=== PATIENT | male | born 1935 | race Caucasian/White ===

== ENCOUNTER → 2016-11-28 | Outpatient (CLI) | payer MEDICARE, OTHER ==
[2016-11-28 19:01] LABS: BASOPHILS % (AUTO) 0.7 %; EOSINOPHILS # (AUTO) 0.2 10^3/uL (0.0-0.7); EOSINOPHILS % (AUTO) 3.1 %; HCT - HEMATOCRIT 44.5 % (42.0-52.0); HGB - HEMOGLOBIN 14.8 g/dL (14.0-18.0); LYMPHOCYTES # (AUTO) 1.2 10^3/uL (1.5-3.5); LYMPHOCYTES % (AUTO) 23.9 %; MEAN CORPUSCULAR HEMOGLOBIN 32.4 pg (27.0-31.0); MEAN CORPUSCULAR HGB CONC 33.3 g/dL (32.0-36.0); MEAN CORPUSCULAR VOLUME 97.6 fL (80.0-94.0); MEAN PLATELET VOLUME 9.4 fL (7.4-11.4); MONOCYTES # (AUTO) 0.6 10^3/uL (0.0-1.0); MONOCYTES % (AUTO) 12.5 %; NEUTROPHILS # (AUTO) 3.1 10^3/uL (1.5-6.6); NEUTROPHILS % (AUTO) 59.8 %; RED BLOOD COUNT 4.56 10^6/uL (4.70-6.10); RED CELL DISTRIBUTION WIDTH 15.2 % (12.0-15.0); UNCORRECTED WHITE BLOOD COUNT 5.1 x10^3/uL; WHITE BLOOD COUNT 5.1 x10^3/uL (4.8-10.8)
[2016-11-28 19:54] LABS: ALBUMIN/GLOBULIN RATIO 1.2 (1.0-2.2); CALCIUM 8.8 mg/dL (8.5-10.3); CREATININE 1.5 mg/dL (0.6-1.2); POTASSIUM 4.5 mmol/L (3.5-5.0); TOTAL PROTEIN 6.7 g/dL (6.7-8.2)
== END ==
LOC: LAB.WCP 08:00
PROVIDERS: ATTEND Family Medicine
DX: R06.09 Other forms of dyspnea (principal)
CPT/HCPCS: 36415; 80053; 83880; 85025

== ENCOUNTER 2017-08-28 11:40 | Outpatient (CLI) | payer MEDICARE, OTHER | END 2017-08-28 11:41 | disposition critical access hospital (66) | LOC: EMS 11:40 | PROVIDERS: ATTEND Surgery | DX: R53.1 Weakness (principal); R11.2 Nausea with vomiting, unspecified; R19.7 Diarrhea, unspecified; W18.39XA Other fall on same level, initial encounter; Y92.002 Bathroom of unspecified non-institutional (private) residence as the place of occurrence of the external cause | CPT/HCPCS: A0425; A0427 ==

== ENCOUNTER 2017-08-28 11:58 | Emergency (ER) | payer MEDICARE, OTHER ==
--- NOTE | 2017-08-28 13:28 | ED Physician Documentation ---
PD HPI NVD - Stated complaint Stated Complaint: N/V/D - Chief complaint Chief Complaint: Abd Pain - History obtained from History obtained from: Patient, EMS - History of Present Illness Timing - onset: Today (onset of diarrhea overnight and general weakness today. Unable to get out of bed. EMS found his BP to be low and improved with IV fluids enroute.) Timing - details: Abrupt onset, Still present Associated symptoms: Near syncope / syncope. No: Fever, Abdominal pain, Chest pain, Melena, Loss of appetite, Dysuria Contributing factors: Recent antibiotics. No: Sick contact, Bad food, Travel Similar symptoms before: Has not had sx before Recently seen: Clinic (Dx with shingles and started on meds 2 days ago, including IM antibiotic in office for concern of secondary infection of the shingles.) Review of Systems Constitutional: reports: Myalgias. denies: Fever, Chills Nose: denies: Rhinorrhea / runny nose, Congestion Throat: denies: Sore throat Cardiac: denies: Chest pain / pressure, Palpitations Respiratory: denies: Dyspnea, Cough GI: reports: Nausea, Diarrhea. denies: Abdominal Pain, Vomiting Skin: reports: Rash (for 3 days, Dx with shingles) Neurologic: reports: Generalized weakness. denies: Focal weakness, Numbness Immunocompromised: denies: Immunocompromised PD PAST MEDICAL HISTORY - Past Medical History Cardiovascular: Hypertension, High cholesterol, Coronary artery disease, Atrial fibrillation Respiratory: COPD, Pneumonia, Sleep apnea Neuro: CVA, Peripheral neuropathy : Renal insuffiency Musculoskeletal: Gout - Past Surgical History Past Surgical History: Yes General: Appendectomy, Bowel surgery Cardiovascular: Pacemaker - Present Medications Home Medications: Ambulatory Orders Medication Instructions Recorded Confirmed Albuterol [Ventolin Hfa] 2 puffs INH Q4H PRN #1 inhaler 03/22/14 Azithromycin [Zithromax] 250 mg PO DAILY #6 tablet 03/22/14 Dexamethasone [Decadron] 4 mg PO DAILY #5 tablet 03/22/14 Docusate Sodium 250Mg Capsule 250 mg PO BID 03/22/14 03/22/14 [Colace] Furosemide [Lasix] 20 mg PO DAILY 03/22/14 03/22/14 LORazepam INTENSOL [Ativan 0.25 mg Q2HR PRN 03/22/14 03/22/14 Intensol] Lidocaine Patch 5% [Lidoderm Patch] 1 patch DAILY 03/22/14 03/22/14 Lisinopril 10 mg DAILY 03/22/14 03/22/14 Magnesium Oxide [Mag Ox] 400 mg PO BID 03/22/14 03/22/14 Metoclopramide [Reglan] 10 mg PO Q6H PRN 03/22/14 03/22/14 Metoprolol Tartrate [Lopressor] 25 mg PO BID 03/22/14 03/22/14 Multivitamin [Multi-Day Vitamins] 1 cap DAILY 03/22/14 03/22/14 Omeprazole Magnesium [Prilosec Otc] 20 mg DAILY 03/22/14 03/22/14 Ondansetron Odt [Zofran] 4 mg TL Q6H PRN 03/22/14 03/22/14 Oxycodone HCl/Acetaminophen 1 cap Q4HR PRN 03/22/14 03/22/14 [Endocet 5-325 Tablet] Polyethylene Glycol 3350 [Miralax] 17 gm PO DAILY 03/22/14 03/22/14 Potassium Chloride [Klor-Con M20] 20 meq BID 03/22/14 03/22/14 Tamsulosin HCl [Flomax] 0.4 mg PO 03/22/14 03/22/14 Warfarin [Coumadin] 5 mg PO 1400 03/22/14 03/22/14 predniSONE [Deltasone] 20 mg ONCE 03/22/14 03/22/14 Dexamethasone [Decadron] 4 mg PO DAILY #5 tablet 08/28/17 Diphenoxylate/Atropine [Lomotil] 1 each PO QID PRN #15 tablet 08/28/17 - Allergies Allergies/Adverse Reactions: Allergies Allergy/AdvReac Type Severity Reaction Status Date / Time No Known Drug Allergies Allergy Verified 08/28/17 12:25 - Social History Does the pt smoke?: No Smoking Status: Former smoker Does the pt drink ETOH?: No Does the pt have substance abuse?: No - POLST Patient has POLST: No PD ED PE NORMAL - Vitals Vital signs reviewed: Yes - General General: Alert and oriented X 3, No acute distress, Well developed/nourished - HEENT HEENT: Pharynx benign - Neck Neck: Supple, no meningeal sign, No adenopathy - Cardiac Cardiac: RRR, No murmur - Respiratory Respiratory: Clear bilaterally - Abdomen Abdomen: Normal bowel sounds, Soft, Non tender, Non distended - Male Male : Deferred - Rectal Rectal: Deferred (he had stool in ED so tested it guiac negative. ) - Derm Derm: Normal color, Warm and dry, Other (right lower thoracid back wrapping around to inguinal area with shingles appearing rash, tender. No purulence. ) - Extremities Extremities: No deformity, No tenderness to palpate, Normal ROM s pain, No edema , No calf tenderness / cord - Neuro Neuro: Alert and oriented X 3, No motor deficit, Normal speech Eye Opening: Spontaneous Motor: Obeys Commands Verbal: Oriented GCS Score: 15 - Psych Psych: Normal mood Results - Vitals Vitals: Vital Signs - 24 hr 08/28/17 08/28/17 08/28/17 12:00 13:18 14:05 Temperature 36.5 C Heart Rate 69 62 60 Respiratory 18 16 16 Rate Blood Pressure 102/59 L 95/55 L 119/70 O2 Saturation 96 96 98 Oxygen O2 Source Room air - Labs Labs: Laboratory Tests 08/28/17 08/28/17 08/28/17 14:07 14:07 14:07 WBC 4.8 RBC 4.47 L Hgb 14.5 Hct 43.0 MCV 96.2 H MCH 32.4 H MCHC 33.6 RDW 15.8 H Plt Count 133 MPV 8.6 Neut # Not Reportable Lymph # Not Reportable [place] # Not Reportable Eos # Not Reportable Baso # Not Reportable Absolute Nucleated RBC Not Reportable Total Counted 100 Band Neuts % (Manual) 2 Abnorm Lymph % (Manual) 0 Nucleated RBC % Not Reportable Neutrophils # (Manual) 2.5 Lymphocytes # (Manual) 1.2 L Monocytes # (Manual) 1.1 H Eosinophils # (Manual) 0.0 Basophils # (Manual) 0.0 Differential Comment MANUAL DIFFERENTIAL Manual Slide Review Indicated Platelet Estimate NORMAL (130-450,000) Platelet Morphology NORMAL APPEARANCE RBC Morph Micro Appear NORMAL APPEARANCE PT INR Sodium 135 Potassium 4.5 Chloride 103 Carbon Dioxide 23 Anion Gap 9.0 BUN 35 H Creatinine 1.7 H Estimated GFR (MDRD) 39 L Glucose 91 Calcium 8.3 L Magnesium 2.3 Total Bilirubin 1.0 AST 38 ALT 26 Alkaline Phosphatase 90 B-Natriuretic Peptide 93 Total Protein 6.5 L Albumin 3.4 Globulin 3.1 Albumin/Globulin Ratio 1.1 Lipase 20 L 08/28/17 14:07 WBC RBC Hgb Hct MCV MCH MCHC RDW Plt Count MPV Neut # Lymph # [place] # Eos # Baso # Absolute Nucleated RBC Total Counted Band Neuts % (Manual) Abnorm Lymph % (Manual) Nucleated RBC % Neutrophils # (Manual) Lymphocytes # (Manual) Monocytes # (Manual) Eosinophils # (Manual) Basophils # (Manual) Differential Comment Manual Slide Review Platelet Estimate Platelet Morphology RBC Morph Micro Appear PT 23.4 H INR 2.1 H Sodium Potassium Chloride Carbon Dioxide Anion Gap BUN Creatinine Estimated GFR (MDRD) Glucose Calcium Magnesium Total Bilirubin AST ALT Alkaline Phosphatase B-Natriuretic Peptide Total Protein Albumin Globulin Albumin/Globulin Ratio Lipase PD MEDICAL DECISION MAKING - ED course Complexity details: reviewed results, re-evaluated patient (feeling better with IV fluids. ), considered differential (had diarrhea overnight with weakness and low BP today. He had gotten IM doses abx in office for his shingles and so presume it is from that. Could be side effect of the acyclovir, so will need to consider taht if diarrhea persists. ), d/w patient Departure - Departure Disposition: 01 Home, Self Care Clinical Impression: Transient hypotension, Antibiotic-associated diarrhea, General weakness Condition: Stable Record reviewed to determine appropriate education?: Yes Follow-Up: Preston Spencer MD [Primary Care Provider] - Prescriptions: Dexamethasone [Decadron] 4 mg PO DAILY #5 tablet Diphenoxylate/Atropine [Lomotil] 1 each PO QID PRN #15 tablet PRN Reason: Diarrhea Comments: Drink lots of fluids. I presume the diarrhea you had was from the antibiotic that given and should taper down. Use Lomotil if needed for diarrhea. See how you feel generally. If you continue with some lightheadedness or diarrhea beyond a day or 2, then it might be from the antiviral medication instead, Erlinda acyclovir, and would want to discontinue that. Medication: I would continue the valacyclovir and the gabapentin prescribed by her provider. Add Decadron daily for 5 days. Add Lomotil if needed. See how you are feeling over the next few days. Discharge Date/Time: 08/28/17 17:15
[2017-08-28] MEDS ORDERED: SODIUM CHLORIDE 0.9% 1,000 ML IV ONE (13:48)
[2017-08-28 14:20] LABS: BASOPHILS % (AUTO) 0.7 %; EOSINOPHILS % (AUTO) 0.1 %; HGB - HEMOGLOBIN 14.5 g/dL (14.0-18.0); LYMPHOCYTES % (AUTO) 27.4 %; MEAN CORPUSCULAR HEMOGLOBIN 32.4 pg (27.0-31.0); MEAN CORPUSCULAR HGB CONC 33.6 g/dL (32.0-36.0); MEAN CORPUSCULAR VOLUME 96.2 fL (80.0-94.0); MEAN PLATELET VOLUME 8.6 fL (7.4-11.4); MONOCYTES % (AUTO) 22.1 %; NEUTROPHILS % (AUTO) 49.7 %; PLT - PLATELET COUNT 133 10^3/uL (130-450); RED BLOOD COUNT 4.47 10^6/uL (4.70-6.10); RED CELL DISTRIBUTION WIDTH 15.8 % (12.0-15.0); WHITE BLOOD COUNT 4.8 x10^3/uL (4.8-10.8)
[2017-08-28 14:22] VITALS: BP 119/70
[2017-08-28 14:35] LABS: ALBUMIN 3.4 g/dL (3.2-5.5); ALBUMIN/GLOBULIN RATIO 1.1 (1.0-2.2); CALCIUM 8.3 mg/dL (8.5-10.3); CREATININE 1.7 mg/dL (0.6-1.2); MAGNESIUM 2.3 mg/dL (1.7-2.8); TOTAL PROTEIN 6.5 g/dL (6.7-8.2)
[2017-08-28 14:44] LABS: ABNORMAL LYMPHS % (MANUAL) 0 %
[2017-08-28 14:47] LABS: BAND NEUTROPHILS % (MANUAL) 2 %; DIFFERENTIAL COMMENT MANUAL DIFFERENTIAL; LYMPHOCYTES # (MANUAL) 1.2 10^3/uL (1.5-3.5); LYMPHOCYTES % (MANUAL) 25 %; MONOCYTES # (MANUAL) 1.1 10^3/uL (0.0-1.0); NEUTROPHILS # (MANUAL) 2.5 10^3/uL (1.5-6.6); NEUTROPHILS % (MANUAL) 51 %; PLATELET ESTIMATE, MANUAL NORMAL (130-450,000) (NORMAL); PLATELET MORPHOLOGY NORMAL APPEARANCE (NORMAL); RBC MORPHOLOGY (MULTIPLE) NORMAL APPEARANCE (NORMAL)
[2017-08-28] MEDS ORDERED: DIPHENOX/ATROPINE 2.5/0.025 MG TABLET PO STA (15:02)
[2017-08-28] MEDS ORDERED: DEXAMETHASONE 10 MG/ML VIAL IVP STA (15:03)
[2017-08-28 15:16] LABS: INR 2.1 (0.8-1.2); PT - PROTHROMBIN TIME 23.4 secs (9.9-12.6)
== END 2017-08-28 17:15 | disposition home or self-care (01) ==
LOC: EDUNIT# → ED 11:58
DX: I95.9 Hypotension, unspecified (principal); K52.1 Toxic gastroenteritis and colitis; T36.95XA Adverse effect of unspecified systemic antibiotic, initial encounter; R53.1 Weakness; I25.10 Atherosclerotic heart disease of native coronary artery without angina pectoris; I10 Essential (primary) hypertension; E78.00 Pure hypercholesterolemia, unspecified; G62.9 Polyneuropathy, unspecified; Z86.73 Personal history of transient ischemic attack (TIA), and cerebral infarction without residual deficits; Z95.0 Presence of cardiac pacemaker
CPT/HCPCS: 36415; 80053; 83690; 83735; 83880; 85025; 85610; 96361; 96374; 99284; A9270

== ENCOUNTER 2017-09-14 07:38 | Outpatient (CLI) | payer MEDICARE, OTHER | END 2017-09-14 07:39 | disposition EMS.NT | LOC: EMS 07:38 | PROVIDERS: ATTEND Surgery | DX: Z03.89 Encounter for observation for other suspected diseases and conditions ruled out (principal) ==

== ENCOUNTER 2017-09-16 10:40 | Outpatient (CLI) | payer MEDICARE, OTHER | END 2017-09-16 10:41 | disposition critical access hospital (66) | LOC: EMS 10:40 | PROVIDERS: ATTEND Surgery | DX: R06.02 Shortness of breath (principal); R53.1 Weakness; R50.9 Fever, unspecified; R05 Cough | CPT/HCPCS: A0425; A0427 ==

== ENCOUNTER 2017-09-16 11:04 | Inpatient (IN) | payer MEDICARE, OTHER ==
[2017-09-16] MEDS ORDERED: IPRATROPIUM/ALBUTEROL 3 ML NEB INH STA (11:26)
--- NOTE | 2017-09-16 11:29 | ED Physician Documentation ---
PD HPI DYSPNEA - Stated complaint Stated Complaint: SOA - Chief complaint Chief Complaint: Resp - History obtained from History obtained from: Patient, EMS - History of Present Illness Timing - onset: How many days ago (3) Timing - onset during: Rest Timing - duration: Days (3) Timing - details: Gradual onset, Still present Inciting event(s): URI Improved by: O2, Rest, Sitting up Worsened by: Coughing Associated symptoms: Fever, Cough, Wheezing, Bilateral edema Similar symptoms before: Diagnosis (pneumonia) Recently seen: Emergency Dept (82-year-old male with history of colon cancer and lymphoma is in remission from these and has developed a cough and congestion. He has developed shortness of breath and he did not feel that his nebulizer machine help much this morning. He has developed a fever with this cough. He has developed shingles last month and he continues to have an issue with skin breakdown and infection surrounding the shingles.) - Additional information Additional information: He was not able to get up out of his chair this morning secondary to weakness. Review of Systems Constitutional: reports: Fever, Chills, Myalgias, Fatigue, Sweats Eyes: denies: Decreased vision Ears: denies: Ear pain Nose: reports: Congestion Throat: denies: Sore throat Cardiac: reports: Pedal edema. denies: Chest pain / pressure, Palpitations Respiratory: reports: Dyspnea, Cough, Wheezing GI: denies: Abdominal Pain, Nausea, Vomiting : denies: Dysuria, Frequency Skin: denies: Rash Musculoskeletal: reports: Extremity pain. denies: Neck pain Neurologic: reports: Generalized weakness. denies: Focal weakness, Numbness PD PAST MEDICAL HISTORY - Past Medical History Cardiovascular: Hypertension, High cholesterol, Coronary artery disease, Atrial fibrillation Respiratory: COPD, Pneumonia, Sleep apnea Neuro: CVA, Peripheral neuropathy : Renal insuffiency Musculoskeletal: Gout - Past Surgical History Past Surgical History: Yes General: Appendectomy, Bowel surgery Cardiovascular: Pacemaker - Present Medications Home Medications: Ambulatory Orders Medication Instructions Recorded Confirmed Albuterol [Ventolin Hfa] 2 puffs INH Q4H PRN #1 inhaler 03/22/14 Azithromycin [Zithromax] 250 mg PO DAILY #6 tablet 03/22/14 Dexamethasone [Decadron] 4 mg PO DAILY #5 tablet 03/22/14 Docusate Sodium 250Mg Capsule 250 mg PO BID 03/22/14 03/22/14 [Colace] Furosemide [Lasix] 20 mg PO DAILY 03/22/14 03/22/14 LORazepam INTENSOL [Ativan 0.25 mg Q2HR PRN 03/22/14 03/22/14 Intensol] Lidocaine Patch 5% [Lidoderm Patch] 1 patch DAILY 03/22/14 03/22/14 Lisinopril 10 mg DAILY 03/22/14 03/22/14 Magnesium Oxide [Mag Ox] 400 mg PO BID 03/22/14 03/22/14 Metoclopramide [Reglan] 10 mg PO Q6H PRN 03/22/14 03/22/14 Metoprolol Tartrate [Lopressor] 25 mg PO BID 03/22/14 03/22/14 Multivitamin [Multi-Day Vitamins] 1 cap DAILY 03/22/14 03/22/14 Omeprazole Magnesium [Prilosec Otc] 20 mg DAILY 03/22/14 03/22/14 Ondansetron Odt [Zofran] 4 mg TL Q6H PRN 03/22/14 03/22/14 Oxycodone HCl/Acetaminophen 1 cap Q4HR PRN 03/22/14 03/22/14 [Endocet 5-325 Tablet] Polyethylene Glycol 3350 [Miralax] 17 gm PO DAILY 03/22/14 03/22/14 Potassium Chloride [Klor-Con M20] 20 meq BID 03/22/14 03/22/14 Tamsulosin HCl [Flomax] 0.4 mg PO 03/22/14 03/22/14 Warfarin [Coumadin] 5 mg PO 1400 03/22/14 03/22/14 predniSONE [Deltasone] 20 mg ONCE 03/22/14 03/22/14 Dexamethasone [Decadron] 4 mg PO DAILY #5 tablet 08/28/17 Diphenoxylate/Atropine [Lomotil] 1 each PO QID PRN #15 tablet 08/28/17 - Allergies Allergies/Adverse Reactions: Allergies Allergy/AdvReac Type Severity Reaction Status Date / Time No Known Drug Allergies Allergy Verified 08/28/17 12:25 - Social History Does the pt smoke?: No Smoking Status: Never smoker Does the pt drink ETOH?: No Does the pt have substance abuse?: No - POLST Patient has POLST: No PD ED PE NORMAL - Vitals Vital signs reviewed: Yes (hypotensive mild , tachypnea) - General General: Well developed/nourished, Other (audible wheeze and tachypnea) - HEENT HEENT: Atraumatic, PERRL, EOMI, Other (dry mucous membranes) - Neck Neck: Supple, no meningeal sign, No bony TTP - Cardiac Cardiac: RRR, No murmur - Respiratory Respiratory: Other (tachypneic with scattered wheezes and rhonchi. ) - Abdomen Abdomen: Soft, Other (area to the right lateral abdominal wall with erythema and skin ulceration consistent with infected shingles. ) - Back Back: No CVA TTP, No spinal TTP - Derm Derm: Normal color, Warm and dry - Extremities Extremities: Other (thick woody induratio n) - Neuro Neuro: Alert and oriented X 3, No motor deficit, No sensory deficit, Normal speech Eye Opening: Spontaneous Motor: Obeys Commands Verbal: Oriented GCS Score: 15 - Psych Psych: Normal mood, Normal affect Results - Vitals Vitals: Vital Signs - 24 hr 09/16/17 09/16/17 09/16/17 11:07 11:33 11:48 Temperature 36.7 C Heart Rate 64 58 L 62 Respiratory 22 16 20 Rate Blood Pressure 119/50 L 111/92 H O2 Saturation 94 99 Oxygen O2 Source Nasal cannula Oxygen Flow Rate 2 - Labs Labs: Laboratory Tests 09/16/17 09/16/17 09/16/17 11:40 12:10 12:10 WBC 3.9 L RBC 3.96 L Hgb 12.8 L Hct 38.4 L MCV 97.0 H MCH 32.4 H MCHC 33.4 RDW 16.1 H Plt Count 109 L MPV 8.4 Neut # 2.1 Lymph # 1.1 L [place] # 0.7 Eos # 0.0 Baso # 0.0 Absolute Nucleated RBC 0.01 Nucleated RBC % 0.2 PT 32.1 H INR 3.0 H Sodium Potassium Chloride Carbon Dioxide Anion Gap BUN Creatinine Estimated GFR (MDRD) Glucose Calcium Total Bilirubin AST ALT Alkaline Phosphatase Troponin I B-Natriuretic Peptide Total Protein Albumin Globulin Albumin/Globulin Ratio Lipase Urine Color YELLOW Urine Clarity CLEAR Urine pH 6.0 Ur Specific [place] 1.015 Urine Protein NEGATIVE Urine Glucose (UA) NEGATIVE Urine Ketones NEGATIVE Urine Occult Blood NEGATIVE Urine Nitrite NEGATIVE Urine Bilirubin NEGATIVE Urine Urobilinogen 0.2 (NORMAL) Ur Leukocyte Esterase NEGATIVE Ur Microscopic Review NOT INDICATED Urine Culture Comments NOT INDICATED 09/16/17 09/16/17 09/16/17 12:10 12:10 12:10 WBC RBC Hgb Hct MCV MCH MCHC RDW Plt Count MPV Neut # Lymph # [place] # Eos # Baso # Absolute Nucleated RBC Nucleated RBC % PT INR Sodium 131 L Potassium 4.6 Chloride 98 L Carbon Dioxide 28 Anion Gap 5.0 L BUN 35 H Creatinine 1.5 H Estimated GFR (MDRD) 45 L Glucose 85 Calcium 7.9 L Total Bilirubin 0.9 AST 39 ALT 29 Alkaline Phosphatase 100 Troponin I 0.05 B-Natriuretic Peptide 124 H Total Protein 6.1 L Albumin 2.9 L Globulin 3.2 Albumin/Globulin Ratio 0.9 L Lipase 19 L Urine Color Urine Clarity Urine pH Ur Specific [place] Urine Protein Urine Glucose (UA) Urine Ketones Urine Occult Blood Urine Nitrite Urine Bilirubin Urine Urobilinogen Ur Leukocyte Esterase Ur Microscopic Review Urine Culture Comments - Rads (name of study) 1 veiw chest Radiology: Prelim report reviewed (Impression: Cannot exclude retrocardiac airspace process. Otherwise clear lungs. Mild vascular congestion.), EMP read indepedently, See rad report PD MEDICAL DECISION MAKING - ED course Complexity details: reviewed old records, reviewed results, re-evaluated patient , considered differential, d/w patient ED course: 82-year-old male with history of COPD and prior pneumonia has had a recent bout of shingles and these have been severe with superinfection the patient did have an episode of weakness about 3 weeks ago associated with some diarrhea. Over the last 3 days he has developed cough fever chills and weakness. On evaluation today he has scattered wheezes and rhonchi and his chest x-ray is concerning for a possibility of retrocardiac infiltrate. I have asked the hospitalist to consider this patient for admission for treatment of pneumonia. He does have extensive zoster on the right lateral abdomen and buttocks that appears superinfected. Departure - Departure Disposition: [address] [facility] DC/Xfer Clinical Impression: Pneumonia, General weakness, Herpes zoster complicated
[2017-09-16] MEDS ORDERED: IPRATROPIUM/ALBUTEROL 3 ML NEB INH ONE (11:36)
[2017-09-16 12:02] LABS: BILIRUBIN,URINE NEGATIVE (NEGATIVE); GLUCOSE, URINE (UA) NEGATIVE (NEGATIVE); KETONES,URINE (UA) NEGATIVE (NEGATIVE); LEUKOCYTE ESTERASE, URINE NEGATIVE (NEGATIVE); NITRITE,URINE NEGATIVE (NEGATIVE); OCCULT BLOOD,URINE NEGATIVE (NEGATIVE); PROTEIN,URINE NEGATIVE (NEGATIVE); UROBILINOGEN,URINE 0.2 (NORMAL) E.U./dL (NORMAL)
[2017-09-16 12:04] LABS: CLARITY,URINE CLEAR (CLEAR)
[2017-09-16 12:21] LABS: BASOPHILS % (AUTO) 0.5 %; EOSINOPHILS % (AUTO) 0.5 %; HGB - HEMOGLOBIN 12.8 g/dL (14.0-18.0); LYMPHOCYTES # (AUTO) 1.1 10^3/uL (1.5-3.5); LYMPHOCYTES % (AUTO) 27.2 %; MEAN CORPUSCULAR HEMOGLOBIN 32.4 pg (27.0-31.0); MEAN CORPUSCULAR HGB CONC 33.4 g/dL (32.0-36.0); MEAN PLATELET VOLUME 8.4 fL (7.4-11.4); MONOCYTES # (AUTO) 0.7 10^3/uL (0.0-1.0); NEUTROPHILS # (AUTO) 2.1 10^3/uL (1.5-6.6); NEUTROPHILS % (AUTO) 53.8 %; PLT - PLATELET COUNT 109 10^3/uL (130-450); RED BLOOD COUNT 3.96 10^6/uL (4.70-6.10); RED CELL DISTRIBUTION WIDTH 16.1 % (12.0-15.0); WHITE BLOOD COUNT 3.9 x10^3/uL (4.8-10.8)
--- NOTE | 2017-09-16 12:26 | XRAY Report ---
EXAM: CHEST RADIOGRAPHY EXAM DATE: 09/16/2017 12:05 PM. CLINICAL HISTORY: Cough short of breath COMPARISON: 03/22/2014 TECHNIQUE: 1 view. FINDINGS: Lungs/Pleura: Mild pulmonary vascular redistribution and congestion. Retrocardiac area not well seen. Otherwise no focal opacities evident. No pleural effusion. No pneumothorax. Mediastinum: Heart appears enlarged in size some of which is due to the AP portable technique. Other: Single-lead right subclavian transvenous catheter. IMPRESSION: Cannot exclude retrocardiac airspace process. Otherwise clear lungs. Mild vascular conges tion. [facility] Referring Provider Line: [phone] SITE ID: [id number]
[2017-09-16 12:35] LABS: ALBUMIN 2.9 g/dL (3.2-5.5); ALBUMIN/GLOBULIN RATIO 0.9 (1.0-2.2); BILIRUBIN,TOTAL 0.9 mg/dL (0.2-1.0); CALCIUM 7.9 mg/dL (8.5-10.3); CREATININE 1.5 mg/dL (0.6-1.2); TOTAL PROTEIN 6.1 g/dL (6.7-8.2)
[2017-09-16 12:36] LABS: PT - PROTHROMBIN TIME 32.1 secs (9.9-12.6)
[2017-09-16] MEDS ORDERED: cefTRIAXone 1 GM in SODIUM CHLORIDE 0.9% MINIBAG 100 ML IV STA (13:21)
[2017-09-16] MEDS ORDERED: MORPHINE 2 MG/ML SYRINGE IVP PRN (14:45)
[2017-09-16] MEDS ORDERED: KETOROLAC 15 MG/ML VIAL IVP PRN (14:45)
[2017-09-16] MEDS ORDERED: ONDANSETRON 4 MG/2 ML VIAL IVP PRN (14:50)
[2017-09-16] MEDS ORDERED: oxyCODONE 5 MG TABLET PO PRN (14:50)
[2017-09-16] MEDS: ACETAMINOPHEN 500 MG TABLET PO SCH ×2 (18:21→21:44)
[2017-09-16] MEDS: PANTOPRAZOLE 40 MG TABLET PO SCH (18:22)
[2017-09-16] MEDS: ACYCLOVIR INJ 500 MG in SODIUM CHLORIDE 0.9% 250 ML IV SCH ×2 (18:22→21:45)
[2017-09-16] MEDS: PIPERACILLIN/TAZOBACTAM 4.5 GM in SODIUM CHLORIDE 0.9% MINIBAG 100 ML IV SCH (18:22)
[2017-09-16] MEDS: FLUCONAZOLE 200 MG/100 ML 50 ML IV SCH (18:22)
[2017-09-16] MEDS: SODIUM CHLORIDE FLUSH 0.9% 10 ML SYRINGE IVP SCH (18:23)
--- NOTE | 2017-09-16 18:29 | HISTORY & PHYSICAL EXAMINATION ---
DATE OF SERVICE: 09/16/2017 Physician: Kaylee Braxton MD CHIEF COMPLAINT: Weakness. PRIMARY CARE PHYSICIAN: Dr. Preston Spencer. SOURCE OF HISTORY: Patient and his daughter at the bedside provided history together. In addition, electronic medical record was reviewed. HISTORY OF PRESENT ILLNESS: Patient is an 82-year-old white male who is chronically ill and has complex medical background. He reported that about 3 weeks ago he developed a skin rash, which appeared as shingles. For that, he was seen at the primary care physician 's office. He was given acyclovir and subsequently appeared with secondary bacterial infection , therefore, was prescribed an antibiotic as well. The rash did not improve. He developed increasing pain and worsening discharge and erythema. Therefore, he presented to the ER at which time pain medications were adjusted and antibiotic again was given. Subsequently, he again saw his primary care physician and amitriptyline, which was used for neuropathic pain control, was increased. During the past 3 days, he developed generalized weakness. He fell a couple of times, was unsteady on his feet, could no longer ambulate due to the pain, worsening rash and generalized weakness. In addition, he developed cough and fever. His daughter brought him to the ER for evaluation. Upon presentation to the ER, he had an oxygen saturation of 91% on room air. His vital signs were otherwise stable. Heart rate was in the 60s, blood pressure was 120/100, respiratory rate was 22. ER workup included chest x-ray which showed retrocardiac airspace process and mild vascular congestion. LABORATORY: Data showed white blood cell count was 3.9, hemoglobin 12.8, platelet count 109. INR was 3, notably the patient is taking Coumadin. Sodium was 131, potassium 4.6, creatinine 1.5, BUN 35, albumin was 2.9. Urinalysis was clear. EKG showed a paced rhythm. PAST MEDICAL HISTORY 1. Obstructive sleep apnea, using nocturnal CPAP. 2. Chronic obstructive pulmonary disease. 3. Atrial fibrillation, on Coumadin anticoagulation. 4. Status post pacemaker/AICD implant, patient likely has ventricular tachycardia, he received shocks from the ICD in the past. 5. 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 6. History of colon cancer, status post partial colectomy and status post chemotherapy, in remission. 7. History of lymphoma, status post chemo and radiation treatment in remission. OUTPATIENT MEDICATIONS Included: 1. Multivitamin. 2. Carvedilol. 3. Aspirin. 4. Coumadin. 5. Flomax. 6. Spironolactone. 7. Simvastatin. 8. Losartan. 9. Potassium. 10. Amiodarone. 11. Furosemide. 12. Xanax. 13. Magnesium oxide. 14. Polyethylene glycol. SOCIAL HISTORY: Patient lives in his own home. He uses a walker to ambulate. He has 12-hour coverage with caregivers. His daughter mentioned that they would be ready to increase in-home caregivers for 24-hour coverage; however, they would also be interested in post-hospital rehabilitation if the patient would qualify. FAMILY HISTORY: Patient reports no history of heart disease, diabetes or cerebrovascular accident in first degree relatives. REVIEW OF SYSTEMS: Please see pertinent positives listed above at history of present illness. The patient did not report additional complaint on the 12 point review. PHYSICAL EXAMINATION VITAL SIGNS: Please see listed above at History of Present Illness. GENERAL: This is a well-developed, acutely and chronically ill-appearing male. SKIN: The patient had extensive skin lesions on the right side of his abdomen, trunk and buttocks. In particular, he had a zoster-like rash, which was going across the lower abdomen and the back with vesicular lesions and inflammatory signs. In addition, there was foul smelling secondary infection which appeared with inflammatory signs, discharge extending into the abdominal folds, the buttocks and up on the back as well. Appeared as an extensive area of cellulitis, but no obvious drainable fluctuant collection. Regarding additional body areas, there were areas of chronic venous stasis on the lower extremities with stasis dermatitis. There was mild pallor. No jaundice. HEENT: Oral mucosa moist without oral thrush or ulcers. CARDIOVASCULAR: S1, S2, regular. RESPIRATORY: Wheezes bilaterally with increased expiratory and inspiratory ratio. NEUROLOGIC: Alert, oriented, nonfocal, intact cognition and mentation. PSYCHIATRIC: Cooperative, pleasant to talk to, good sense of humor. MUSCULOSKELETAL:Truncal obesity plus swollen lower extremities. EXTREMITIES: Chronic venous stasis on the lower extremities with pitting edema. ABDOMEN: Distended, obese, nontender. Bowel tones present. ASSESSMENT AND PLAN/ACTIVE ISSUES/DIAGNOSES 1. Failed outpatient treatment, getting worse with zoster rash developing secondary fungal- and bacterial-appearing infection. 2. Pneumonia based on lower white blood cell count, respiratory symptoms, infiltrate on chest x-ray and fever. 3. Shingles/zoster rash. 4. Cellulitis with bacterial and fungal appearing infection on the abdominal wall, abdominal folds, buttocks and back, involving extensive area. 5. History of obstructive sleep apnea, CPAP. 6. Chronic obstructive pulmonary disease, mild wheezes. Could also be mildly fluid overloaded. 7. Anticoagulated on Coumadin. 8. Complex history of cardiomyopathy. No prior echocardiogram available. Today appears not offering symptoms for heart failure or acute coronary syndrome. 9. Generalized weakness secondary to shingles and cellulitis, possibly secondary to medication side effect, suspect amitriptyline toxicity as well. 10. History of paroxysmal atrial fibrillation. 11. History of ventricular tachycardia, on amiodarone and status post ICD. 12. Chronic renal insufficiency. Creatinine appears at baseline. 13. CODE STATUS IS DO NOT RESUSCITATE, which was discussed with the patient and with his daughter at the bedside. PLAN AND ORDERS 1. The patient has complex issues and will require more than 2 days hospital stay, he requires IV antibiotics and continued treatment for his other medical problems as well. Therefore, he is getting admitted as an inpatient. 2. Regarding cellulitis, we will continue with Zosyn as the patient was on multiple antibiotics as outpatient, which did not help. We will also cover with antifungal as based on clinical exam it appears as a fungal rash as well. 3. Regarding the zoster rash, we will add IV acyclovir. 4. Regarding possible amitriptyline toxicity we will check the level if available per laboratory. 5. I added prednisone, which will help with the neuropathic pain. It will also help with wheezes and chronic obstructive pulmonary disease exacerbation. 6. Continue nocturnal BiPAP per home routine. 7. Regarding anticoagulation, I decreased Coumadin dose from 2.5 mg to 1.5 mg daily considering that the patient will be on fluconazole and he also is on amiodarone , which could increase INR. 8. I have reviewed and reconciled outpatient medications. The patient's overall volume status appeared near euvolemic. His renal function was at baseline. Therefore, I elected to continue all his outpatient cardiac medications including furosemide, amiodarone, losartan, spironolactone, and Coreg unchanged. We will continue aspirin and simvastatin as well. 9. Additional orders will include wound care, small volume nebulizers, bowel prophylaxis for antibiotic use and gastrointestinal prophylaxis in the setting of steroid use. 10. Deep venous thrombosis prophylaxis not needed as the patient is therapeutically anticoagulated on Coumadin. 11. We will request physical therapy evaluation and case management and social work consult for discharge planning. This patient appears significantly deconditioned. He has been fighting a disabling illness as outpatient, failed outpatient antibiotic therapies, and given his multiple comorbidities, I think at the end of this hospital stay he might benefit from inpatient rehabilitation. ATTESTATION: I certify that the reasonable expectation for this patient is to be hospitalized for more than 48 hours; however, to discharge or transfer to another facility in less than 96 hours. Time spent in the care of this patient was 70 minutes. cc: Preston Spencer MD TD: 09/16/2017 18:28 MTDD
[2017-09-16] MEDS ORDERED: CARVEDILOL 12.5 MG TABLET PO SCH (21:00)
[2017-09-16] MEDS: ATORVASTATIN 10 MG TABLET PO SCH (21:43)
[2017-09-16] MEDS: ALPRAZolam 0.25 MG TABLET PO PRN (21:44)
[2017-09-16] MEDS: LACTOBACILLUS RHAMNOSUS GG CAPSULE PO SCH (21:44)
[2017-09-17] MEDS ORDERED: SODIUM CHLORIDE 0.9% 1,000 ML IV ONE (01:09)
[2017-09-17] MEDS: PIPERACILLIN/TAZOBACTAM 4.5 GM in SODIUM CHLORIDE 0.9% MINIBAG 100 ML IV SCH ×5 (01:15→23:37)
[2017-09-17] MEDS: SODIUM CHLORIDE FLUSH 0.9% 10 ML SYRINGE IVP SCH ×3 (01:15→17:28)
[2017-09-17] MEDS ORDERED: SODIUM CHLORIDE 0.9% 1,000 ML IV SCH (02:00)
[2017-09-17 04:28] LABS: BASOPHILS % (AUTO) 0.5 %; EOSINOPHILS # (AUTO) 0.1 10^3/uL (0.0-0.7); EOSINOPHILS % (AUTO) 2.9 %; HGB - HEMOGLOBIN 11.9 g/dL (14.0-18.0); LYMPHOCYTES # (AUTO) 0.9 10^3/uL (1.5-3.5); LYMPHOCYTES % (AUTO) 29.8 %; MEAN CORPUSCULAR HEMOGLOBIN 31.5 pg (27.0-31.0); MEAN CORPUSCULAR HGB CONC 32.8 g/dL (32.0-36.0); MEAN PLATELET VOLUME 8.5 fL (7.4-11.4); MONOCYTES # (AUTO) 0.5 10^3/uL (0.0-1.0); MONOCYTES % (AUTO) 14.9 %; NEUTROPHILS # (AUTO) 1.6 10^3/uL (1.5-6.6); NEUTROPHILS % (AUTO) 51.9 %; PLT - PLATELET COUNT 93 10^3/uL (130-450); RED BLOOD COUNT 3.78 10^6/uL (4.70-6.10); RED CELL DISTRIBUTION WIDTH 16.4 % (12.0-15.0); WHITE BLOOD COUNT 3.1 x10^3/uL (4.8-10.8)
[2017-09-17 04:36] LABS: INR 2.9 (0.8-1.2); PT - PROTHROMBIN TIME 31.7 secs (9.9-12.6)
[2017-09-17 04:40] LABS: CALCIUM 7.2 mg/dL (8.5-10.3); CREATININE 1.5 mg/dL (0.6-1.2)
[2017-09-17] MEDS: ACETAMINOPHEN 500 MG TABLET PO SCH ×3 (06:43→21:50)
[2017-09-17] MEDS: PANTOPRAZOLE 40 MG TABLET PO SCH (06:44)
[2017-09-17] MEDS: ACYCLOVIR INJ 500 MG in SODIUM CHLORIDE 0.9% 250 ML IV SCH ×3 (07:38→21:56)
[2017-09-17] MEDS: NS W/20 MEQ KCL 1,000 ML IV SCH ×2 (08:58→20:44)
[2017-09-17] MEDS ORDERED: LOSARTAN 50 MG TABLET PO SCH (09:00)
[2017-09-17] MEDS: TAMSULOSIN 0.4 MG CAPSULE PO SCH (09:01)
[2017-09-17] MEDS: WARFARIN 1 MG TABLET PO SCH (09:01)
[2017-09-17] MEDS: ALPRAZolam 0.25 MG TABLET PO PRN (09:02)
[2017-09-17] MEDS: POLYETHYLENE GLYCOL 3350 17 GM PACKET PO SCH (09:02)
[2017-09-17] MEDS: ASPIRIN EC 81 MG TABLET PO SCH (09:02)
[2017-09-17] MEDS: FLUCONAZOLE 200 MG/100 ML 50 ML IV SCH (09:02)
[2017-09-17] MEDS: predniSONE 20 MG TABLET PO SCH (09:02)
[2017-09-17] MEDS: LACTOBACILLUS RHAMNOSUS GG CAPSULE PO SCH ×2 (09:03→21:49)
[2017-09-17] MEDS: SPIRONOLACTONE 25 MG TABLET PO SCH (11:06)
[2017-09-17] MEDS: AMIODARONE 200 MG TABLET PO SCH (11:07)
[2017-09-17] MEDS: FUROSEMIDE 40 MG TABLET PO SCH (11:07)
[2017-09-17] MEDS: guaiFENesin/CODEINE 5 ML UDC PO PRN ×2 (11:08→21:49)
--- NOTE | 2017-09-17 13:41 | PROVIDER PROGRESS NOTE ---
Subjective - Prog Note Date Prog Note Date: 09/17/17 Prog Note Time: 11:00 - Subjective Pt reports feeling: No change (The patient says his cough is worse, and he has pain in his groin near his shingle wound. Patient slept well last night, his appetite is fair. He is weak and requires assistance with most ADLs.) Current Medications - Current Medications Current Medications: Acetaminophen, acyclovir, alprazolam, amiodarone, aspirin, atorvastatin, carvedilol, fluconazole, furosemide, DuoNeb, lactobacillus, Xopenex, Cozaar, Morphine, Zofran, oxycodone, pantoprazole, polyethylene glycol, prednisone, normal saline, spironolactone, tamsulosin, and warfarin Objective - Vital Signs/Intake & Output Reviewed Vital Signs: Yes Intake & Output: Intake & Output 09/14/17 09/15/17 09/16/17 09/17/17 23:59 23:59 23:59 23:59 Intake Total 685 2595 Output Total 150 450 Balance 535 2145 - Objective General Appearance: positive: Alert, Mild distress Eyes Bilateral: positive: Normal inspection, PERRL, EOMI, No lid inflammation, Conjunctivae nml, No scleral icterus ENT: positive: ENT inspection nml, Pharynx nml, No signs of dehydration Neck: positive: Nml inspection, Thyroid nml, No JVD, Trachea midline. negative : Thyromegaly Respiratory: positive: Chest non-tender, No respiratory distress, Breath sounds nml, Wheezes. negative: Rales, Rhonchi Cardiovascular: positive: Regular rate & rhythm, No murmur, No gallop. negative : Extrasystoles, Bradycardia Abdomen: positive: Non-tender, No organomegaly, Nml bowel sounds, No distention. negative: Guarding, Rebound Back: positive: Nml inspection. negative: CVA tenderness (R), CVA tenderness (L ) Skin: positive: Warm, Dry, Skin rash. negative: Cyanosis Extremities: positive: Non-tender, Full ROM, Nml appearance Neurologic/Psychiatric: positive: Oriented x3, CN's nml (2-12), Motor nml, Sensation nml, Mood/affect nml - Lab Results Fish Bones: 09/17/17 04:05 09/17/17 04:05 Other Labs: Lab Results x24hrs 09/17/17 09/17/17 09/17/17 Range/Units 04:05 04:05 04:05 WBC 3.1 L (4.8-10.8) x10^3/uL RBC 3.78 L (4.70-6.10) 10^6/uL Hgb 11.9 L (14.0-18.0) g/dL Hct 36.3 L (42.0-52.0) % MCV 96.0 H (80.0-94.0) fL MCH 31.5 H (27.0-31.0) pg MCHC 32.8 (32.0-36.0) g/dL RDW 16.4 H (12.0-15.0) % Plt Count 93 L (130-450) 10^3/uL MPV 8.5 (7.4-11.4) fL Neut # 1.6 (1.5-6.6) 10^3/uL Lymph # 0.9 L (1.5-3.5) 10^3/uL [place] # 0.5 (0.0-1.0) 10^3/uL Eos # 0.1 (0.0-0.7) 10^3/uL Baso # 0.0 (0.0-0.1) 10^3/uL Absolute Nucleated RBC 0.00 x10^3/uL Nucleated RBC % 0.1 /100WBC PT 31.7 H (9.9-12.6) secs INR 2.9 H (0.8-1.2) Sodium 132 L (135-145) mmol/L Potassium 4.0 (3.5-5.0) mmol/L Chloride 100 L (101-111) mmol/L Carbon Dioxide 25 (21-32) mmol/L Anion Gap 7.0 (6-13) BUN 35 H (6-20) mg/dL Creatinine 1.5 H (0.6-1.2) mg/dL Estimated GFR (MDRD) 45 L (>89) Glucose 90 (70-100) mg/dL Calcium 7.2 L (8.5-10.3) mg/dL - Diagnostic Imaging Diagnostic Imaging Comments: EXAM: CHEST RADIOGRAPHY EXAM DATE: 09/16/2017 12:05 PM. CLINICAL HISTORY: Cough short of breath COMPARISON: 03/22/2014 TECHNIQUE: 1 view. FINDINGS: Lungs/Pleura: Mild pulmonary vascular redistribution and congestion. Retrocardiac area not well seen. Otherwise no focal opacities evident. No pleural effusion. No pneumothorax. Mediastinum: Heart appears enlarged in size some of which is due to the AP portable technique. Other: Single-lead right subclavian transvenous catheter. IMPRESSION: Cannot exclude retrocardiac airspace process. Otherwise clear lungs. Mild vascular congestion. Assessment/Plan - Problem List (1) Diastolic congestive heart failure Impression: An echocardiogram done today shows that the patient's right heart is very enlarged and floppy with poor contractility. He has diastolic congestive heart failure. Will try not to dry him out too much as he needs the preload. Qualifiers: Heart failure chronicity: chronic Qualified Code(s): I50.32 - Chronic diastolic (congestive) heart failure (3) History of COPD Impression: Since 2016 the patient has run between 1.7 and 1.3 creatinine. Today he is 1.5 , will continue present care. (4) Failure to thrive in adult Impression: The patient has been declining steadily according to his daughters. He has been living alone with caregivers coming in for 4 hours 3 times a week however the patient clearly can no longer live by himself. He requires assistance with most activities of daily living. The patient's daughters are understanding of the situation and will look for placement with the assistance of our social workers. (5) Herpes zoster complicated Impression: The patient has here herpes zoster outbreak to his right lower trunk. According to the family the zoster broke out and then crusted over and was starting to heal when he became cellulitic and the lesions worsened. It appears that there is a secondary cellulitis on top of the zosters infection. We will treat the patient with antiviral creams and an oral antibiotic for the cellulitis. He is receiving prednisone for his acute exacerbation of COPD. (6) Pneumonia Impression: The patient is being treated for pneumonia. His white blood cell count is depressed due to his pancytopenia. It has come down from 3.8-3.1. The patient is not mounting any fevers at this time although he has a severe cough which has responded well to guaifenesin/codeine. Patient's chest x-ray was essentially negative. We will repeat tomorrow.
[2017-09-17] MEDS ORDERED: CALAMINE/ZINC OXIDE 118 ML BOTTLE TOP PRN (14:14)
[2017-09-17] MEDS: ZINC OXIDE TOP SCH ×2 (17:27→21:55)
[2017-09-17] MEDS: MENTHOL TOP SCH ×2 (17:27→21:55)
[2017-09-17] MEDS ORDERED: SODIUM CHLORIDE 0.9% 250 ML IV ONE (21:44)
[2017-09-17] MEDS: CARVEDILOL 3.125 MG TABLET PO SCH (21:50)
[2017-09-17] MEDS: ATORVASTATIN 10 MG TABLET PO SCH (21:50)
[2017-09-18] MEDS: PIPERACILLIN/TAZOBACTAM 4.5 GM in SODIUM CHLORIDE 0.9% MINIBAG 100 ML IV SCH ×3 (05:06→17:21)
[2017-09-18 06:16] LABS: CALCIUM 7.1 mg/dL (8.5-10.3); CREATININE 1.6 mg/dL (0.6-1.2)
[2017-09-18 06:17] LABS: INR 3.6 (0.8-1.2); PT - PROTHROMBIN TIME 38.6 secs (9.9-12.6)
[2017-09-18 06:26] LABS: BASOPHILS % (AUTO) 0.1 %; EOSINOPHILS % (AUTO) 0.1 %; HGB - HEMOGLOBIN 12.5 g/dL (14.0-18.0); LYMPHOCYTES # (AUTO) 0.7 10^3/uL (1.5-3.5); MEAN CORPUSCULAR HEMOGLOBIN 32.1 pg (27.0-31.0); MEAN CORPUSCULAR VOLUME 97.1 fL (80.0-94.0); MEAN PLATELET VOLUME 8.6 fL (7.4-11.4); MONOCYTES # (AUTO) 0.3 10^3/uL (0.0-1.0); NEUTROPHILS # (AUTO) 2.4 10^3/uL (1.5-6.6); NEUTROPHILS % (AUTO) 69.8 %; PLT - PLATELET COUNT 98 10^3/uL (130-450); RED BLOOD COUNT 3.91 10^6/uL (4.70-6.10); RED CELL DISTRIBUTION WIDTH 16.3 % (12.0-15.0); WHITE BLOOD COUNT 3.5 x10^3/uL (4.8-10.8)
[2017-09-18] MEDS: PANTOPRAZOLE 40 MG TABLET PO SCH (06:34)
[2017-09-18] MEDS: SODIUM CHLORIDE FLUSH 0.9% 10 ML SYRINGE IVP SCH ×4 (06:34→21:50)
--- NOTE | 2017-09-18 06:34 | XRAY Preliminary Report ---
Exam: XR CHEST 1 VIEW X-RAY IMPRESSION: 1. No focal pneumonia seen. 2. Possible minimal CHF. [facility] SITE ID: [id number]
--- NOTE | 2017-09-18 06:53 | XRAY Report ---
EXAM: CHEST RADIOGRAPHY EXAM DATE: 09/18/2017 06:19 AM. CLINICAL HISTORY: Short of breath, question pneumonia. COMPARISON: 09/16/2017. TECHNIQUE: 1 view. FINDINGS: Lungs/Pleura: Diffuse mild interstitial opacities. No focal pneumonia seen. No large effusion. No patrick ss pneumothorax. Mediastinum: Mild cardiomegaly. No mediastinal shift. Other: Stable right pacer/AICD. IMPRESSION: 1. No focal pneumonia seen. 2. Possible minimal CHF. [facility] Referring Provider Line: [phone] SITE ID: [id number]
[2017-09-18] MEDS: ACYCLOVIR INJ 500 MG in SODIUM CHLORIDE 0.9% 250 ML IV SCH ×3 (07:45→21:43)
[2017-09-18] MEDS: ACETAMINOPHEN 500 MG TABLET PO SCH ×3 (07:52→21:44)
[2017-09-18] MEDS: predniSONE 20 MG TABLET PO SCH (07:55)
[2017-09-18] MEDS: AMIODARONE 200 MG TABLET PO SCH (08:58)
[2017-09-18] MEDS: LACTOBACILLUS RHAMNOSUS GG CAPSULE PO SCH ×2 (08:58→21:45)
[2017-09-18] MEDS: LOSARTAN 50 MG TABLET PO SCH (08:59)
[2017-09-18] MEDS: TAMSULOSIN 0.4 MG CAPSULE PO SCH (08:59)
[2017-09-18] MEDS: SPIRONOLACTONE 25 MG TABLET PO SCH (09:00)
[2017-09-18] MEDS: FUROSEMIDE 40 MG TABLET PO SCH (09:01)
[2017-09-18] MEDS: ASPIRIN EC 81 MG TABLET PO SCH (09:01)
[2017-09-18] MEDS: CARVEDILOL 3.125 MG TABLET PO SCH ×2 (09:02→21:45)
[2017-09-18] MEDS: WARFARIN 1 MG TABLET PO SCH (09:06)
[2017-09-18] MEDS: POLYETHYLENE GLYCOL 3350 17 GM PACKET PO SCH (09:06)
[2017-09-18] MEDS: FLUCONAZOLE 200 MG/100 ML 50 ML IV SCH (09:24)
[2017-09-18] MEDS: SODIUM CHLORIDE FLUSH 0.9% 10 ML SYRINGE IVP PRN ×2 (09:58→15:58)
[2017-09-18] MEDS: guaiFENesin/CODEINE 5 ML UDC PO PRN (12:35)
[2017-09-18] MEDS: ZINC OXIDE TOP SCH ×2 (12:36→21:47)
[2017-09-18] MEDS: MENTHOL TOP SCH ×2 (12:36→21:47)
[2017-09-18] MEDS ORDERED: MIN OIL/DIMETHICON/COCONUT OIL 92 GM TUBE TOP PRN (15:00)
--- NOTE | 2017-09-18 17:28 | PROVIDER PROGRESS NOTE ---
Subjective - Prog Note Date Prog Note Date: 09/18/17 Prog Note Time: 17:00 - Subjective Pt reports feeling: Improved (The patient says he is breathing easily or and his cough is much better controlled.He continues to wear BiPAP most of the time as this is his preference but he does well on just 2 L of oxygen via nasal cannula. He denies any fevers, chills, or chest pain.) Current Medications - Current Medications Current Medications: Active Medications Acetaminophen (Tylenol) 1,000 mg PO TID [facility] Last Admin: 09/18/17 14:49 Dose: 1,000 mg Alprazolam (Xanax) 0.25 mg PO BID PRN PRN Reason: Anxiety Last Admin: 09/17/17 09:02 Dose: 0.25 mg Amiodarone HCl (Pacerone) 100 mg PO DAILY [facility] Last Admin: 09/18/17 08:58 Dose: 100 mg Aspirin (Ecotrin) 81 mg PO DAILY [facility] Last Admin: 09/18/17 09:01 Dose: 81 mg Atorvastatin Calcium (Lipitor) 5 mg PO QPM [facility] Last Admin: 09/17/17 21:50 Dose: 5 mg Calamine/Phenol (Calmoseptine Oint) 1 applic TOP BID [facility] Last Admin: 09/18/17 12:36 Dose: 2 applic Carvedilol (Coreg) 6.25 mg PO BID [facility] Last Admin: 09/18/17 09:02 Dose: 6.25 mg Furosemide (Lasix) 80 mg PO DAILY [facility] Last Admin: 09/18/17 09:01 Dose: 80 mg Guaifenesin/Codeine Phosphate (Robitussin Ac) 10 ml PO Q6HR PRN PRN Reason: Cough Last Admin: 09/18/17 12:35 Dose: 10 ml Acyclovir 500 mg/ Sodium (Chloride) 260 mls @ 250 mls/hr IV TID [facility] Stop: 09/20/17 15:59 Last Infusion: 09/18/17 15:57 Dose: Infused Fluconazole (Diflucan 200 Mg/100 Ml) 50 mls @ 50 mls/hr IV DAILY [facility] Stop: 09/21/17 16:59 Last Infusion: 09/18/17 10:24 Dose: Infused Piperacillin Sod/Tazobactam (Sod 4.5 gm/ Sodium Chloride) 100 mls @ 200 mls/hr IV Q6H [facility] Last Infusion: 09/18/17 11:46 Dose: Infused Ketorolac Tromethamine (Toradol Inj) 15 mg IVP Q8HR PRN PRN Reason: PAIN Stop: 09/21/17 14:44 Lactobacillus Rhamnosus (Culturelle) 1 cap PO BID [facility] Last Admin: 09/18/17 08:58 Dose: 1 cap Levalbuterol HCl (Xopenex) 1.25 mg INH Q6HR PRN PRN Reason: Dyspnea Losartan Potassium (Cozaar) 50 mg PO DAILY [facility] Last Admin: 09/18/17 08:59 Dose: 50 mg Mineral Oil (Cavilon) 1 applic TOP PRN PRN PRN Reason: Skin Care Last Admin: 09/18/17 15:58 Dose: 1 applic Morphine Sulfate (Morphine) 3 mg IVP Q4HR PRN PRN Reason: PAIN Ondansetron HCl (Zofran Inj) 4 mg IVP Q6HR PRN PRN Reason: Nausea / Vomiting Oxycodone HCl (Roxicodone) 5 mg PO Q4HR PRN PRN Reason: Pain 5 to 7 Pantoprazole Sodium (Protonix) 40 mg PO QDAC [facility] Last Admin: 09/18/17 06:34 Dose: 40 mg Polyethylene Glycol (Miralax) 17 gm PO DAILY [facility] Last Admin: 09/18/17 09:06 Dose: 17 gm Prednisone (Deltasone) 40 mg PO DAILYWM [facility] Last Admin: 09/18/17 07:55 Dose: 40 mg Sodium Chloride (Normal Saline Flush 0.9%) 10 ml IVP PRN PRN PRN Reason: NEEDED PER PROVIDER ORDERS Last Admin: 09/18/17 15:58 Dose: 10 ml Sodium Chloride (Normal Saline Flush 0.9%) 10 ml IVP 0100,0900,1700 [facility] Last Admin: 09/18/17 07:50 Dose: 10 ml Spironolactone (Aldactone) 12.5 mg PO DAILY [facility] Last Admin: 09/18/17 09:00 Dose: 12.5 mg Tamsulosin HCl (Flomax) 0.4 mg PO DAILY [facility] Last Admin: 09/18/17 08:59 Dose: 0.4 mg Warfarin Sodium (Coumadin) 1.5 mg PO DAILY [facility] Last Admin: 09/18/17 09:06 Dose: Not Given Home medications: Magnesium Oxide [Mag Ox] 400 mg PO BID 03/22/14 Multivitamin [Multi-Day Vitamins] 1 cap DAILY 03/22/14 Tamsulosin HCl [Flomax] 0.4 mg PO DAILY 03/22/14 Warfarin [Coumadin] 2.5 mg PO DAILY 03/22/14 ALPRAZolam [Alprazolam] 0.25 mg PO BID PRN 09/16/17 Amiodarone [Pacerone] 100 mg PO DAILY 09/16/17 Aspirin [Aspirin EC] 81 mg PO DAILY 09/16/17 Carvedilol [Carvedilol] 12.5 mg PO BID 09/16/17 Furosemide [Furosemide] 80 mg PO DAILY 09/16/17 Losartan Potassium [Losartan Potassium] 50 mg PO DAILY 09/16/17 Polyethylene Glycol 3350 [Polyethylene Glycol 3350] 8.5 - 17 gm PO DAILY Simvastatin [Simvastatin] 10 mg PO QPM 09/16/17 Spironolactone [Spironolactone] 12.5 mg PO DAILY 09/16/17 Objective - Vital Signs/Intake & Output Reviewed Vital Signs: Yes Vital Signs: Vital Signs x48h Temp Pulse Resp BP Pulse Ox 09/18/17 17:15 36.4 C L 60 24 142/80 H 96 Intake & Output: Intake & Output 09/15/17 09/16/17 09/17/17 09/18/17 23:59 23:59 23:59 23:59 Intake Total 685 5564.000 1710 Output Total 150 1700 970 Balance 535 3864.000 740 - Objective General Appearance: positive: Alert, Mild distress Eyes Bilateral: positive: Normal inspection, PERRL, EOMI, No lid inflammation, Conjunctivae nml, No scleral icterus ENT: positive: ENT inspection nml, Pharynx nml, No signs of dehydration Neck: positive: Nml inspection, Thyroid nml, No JVD, Trachea midline. negative : Thyromegaly Respiratory: positive: Chest non-tender, No respiratory distress, Breath sounds nml. negative: Wheezes, Rales, Rhonchi Cardiovascular: positive: Regular rate & rhythm, No murmur, No gallop Abdomen: positive: Non-tender, No organomegaly, Nml bowel sounds, No distention. negative: Guarding, Rebound Back: positive: Nml inspection. negative: CVA tenderness (R), CVA tenderness (L ) Skin: positive: Color nml, No rash, Warm, Dry. negative: Cyanosis Extremities: positive: Non-tender, Full ROM, Nml appearance, Pedal edema Neurologic/Psychiatric: positive: Oriented x3, CN's nml (2-12), Motor nml, Sensation nml, Mood/affect nml - Lab Results Fish Bones: 09/18/17 05:30 09/18/17 05:30 Other Labs: Lab Results x24hrs 09/18/17 09/18/17 09/18/17 Range/Units 05:30 05:30 05:30 WBC 3.5 L (4.8-10.8) x10^3/uL RBC 3.91 L (4.70-6.10) 10^6/uL Hgb 12.5 L (14.0-18.0) g/dL Hct 38.0 L (42.0-52.0) % MCV 97.1 H (80.0-94.0) fL MCH 32.1 H (27.0-31.0) pg MCHC 33.0 (32.0-36.0) g/dL RDW 16.3 H (12.0-15.0) % Plt Count 98 L (130-450) 10^3/uL MPV 8.6 (7.4-11.4) fL Neut # 2.4 (1.5-6.6) 10^3/uL Lymph # 0.7 L (1.5-3.5) 10^3/uL [place] # 0.3 (0.0-1.0) 10^3/uL Eos # 0.0 (0.0-0.7) 10^3/uL Baso # 0.0 (0.0-0.1) 10^3/uL Absolute Nucleated RBC 0.00 x10^3/uL Nucleated RBC % 0.1 /100WBC PT 38.6 H (9.9-12.6) secs INR 3.6 H (0.8-1.2) Sodium 137 (135-145) mmol/L Potassium 4.3 (3.5-5.0) mmol/L Chloride 106 (101-111) mmol/L Carbon Dioxide 25 (21-32) mmol/L Anion Gap 6.0 (6-13) BUN 31 H (6-20) mg/dL Creatinine 1.6 H (0.6-1.2) mg/dL Estimated GFR (MDRD) 42 L (>89) Glucose 108 H (70-100) mg/dL Calcium 7.1 L (8.5-10.3) mg/dL Assessment/Plan - Problem List (1) Diastolic congestive heart failure Impression: The patient is doing better today. We will recheck his BNP tomorrow. He denies any chest pain or any other new problems. Continue with diuretics. Qualifiers: Heart failure chronicity: chronic Qualified Code(s): I50.32 - Chronic diastolic (congestive) heart failure (2) Chronic kidney disease (CKD) Impression: Patient's creatinine has been steady at 1.5/1.6. Continue present care. (3) History of COPD Impression: This does not appear to be a purely acute exacerbation of COPD. The patient is breathing easier today and is more ambulatory. He got up to the bedside chair for a couple of hours. Continue Xopenex as ordered. (4) Failure to thrive in adult Impression: The patient has been declining steadily according to his daughters. He has been living alone with caregivers coming in for 4 hours 3 times a week however the patient clearly can no longer live by himself. He requires assistance with most activities of daily living. The patient's daughters are understanding of the situation and are looking for placement with the assistance of our social workers. (5) Herpes zoster complicated Impression: The patient has here herpes zoster outbreak to his right lower trunk. According to the family the zoster broke out and then crusted over and was starting to heal when he became cellulitic and the lesions worsened. It appears that there is a secondary cellulitis on top of the zosters infection. We will treat the patient with antiviral creams and an oral antibiotic for the cellulitis. He is receiving prednisone for his acute exacerbation of COPD.He has been seen and evaluated by the wound care nurse who is recommending cavilon. We will order the cavilon but not make any other changes. (6) Pneumonia Impression: The patient is being treated for pneumonia with Zosyn however he is asymptomatic (other than a well controlled cough), afebrile, and his chest x- ray has consistantly failed to show any focal pneumonia but rather some possible congestive heart failure. We will stop the Zosyn at this time.
[2017-09-18] MEDS: ALPRAZolam 0.25 MG TABLET PO PRN (21:43)
[2017-09-18] MEDS: ATORVASTATIN 10 MG TABLET PO SCH (21:44)
[2017-09-19 05:44] LABS: HGB - HEMOGLOBIN 12.6 g/dL (14.0-18.0); MEAN CORPUSCULAR HEMOGLOBIN 31.4 pg (27.0-31.0); MEAN CORPUSCULAR HGB CONC 32.5 g/dL (32.0-36.0); MEAN CORPUSCULAR VOLUME 96.6 fL (80.0-94.0); MEAN PLATELET VOLUME 8.5 fL (7.4-11.4); RED BLOOD COUNT 4.01 10^6/uL (4.70-6.10); RED CELL DISTRIBUTION WIDTH 16.4 % (12.0-15.0); WHITE BLOOD COUNT 3.8 x10^3/uL (4.8-10.8)
[2017-09-19 05:45] LABS: CALCIUM 7.5 mg/dL (8.5-10.3); CREATININE 1.6 mg/dL (0.6-1.2)
[2017-09-19] MEDS: PANTOPRAZOLE 40 MG TABLET PO SCH (05:46)
[2017-09-19] MEDS: ACETAMINOPHEN 500 MG TABLET PO SCH ×3 (05:47→21:33)
[2017-09-19] MEDS: ZINC OXIDE TOP SCH ×3 (05:47→21:35)
[2017-09-19] MEDS: ACYCLOVIR INJ 500 MG in SODIUM CHLORIDE 0.9% 250 ML IV SCH ×3 (05:47→21:34)
[2017-09-19] MEDS: MENTHOL TOP SCH ×3 (05:47→21:35)
[2017-09-19 05:53] LABS: PT - PROTHROMBIN TIME 48.3 secs (9.9-12.6)
[2017-09-19 06:06] LABS: INR 4.5 (0.8-1.2)
[2017-09-19] MEDS ORDERED: SODIUM CHLORIDE 0.9% 250 ML IV ONE (08:03)
[2017-09-19] MEDS: predniSONE 20 MG TABLET PO SCH (08:18)
[2017-09-19] MEDS: ALPRAZolam 0.25 MG TABLET PO PRN ×2 (08:18→21:34)
[2017-09-19] MEDS: FUROSEMIDE 40 MG TABLET PO SCH (08:19)
[2017-09-19] MEDS: LOSARTAN 50 MG TABLET PO SCH (08:20)
[2017-09-19] MEDS: LACTOBACILLUS RHAMNOSUS GG CAPSULE PO SCH ×2 (08:21→21:32)
[2017-09-19] MEDS: ASPIRIN EC 81 MG TABLET PO SCH (08:21)
[2017-09-19] MEDS: CARVEDILOL 3.125 MG TABLET PO SCH ×2 (08:22→21:33)
[2017-09-19] MEDS: AMIODARONE 200 MG TABLET PO SCH (08:23)
[2017-09-19] MEDS: POLYETHYLENE GLYCOL 3350 17 GM PACKET PO SCH ×2 (08:57→10:01)
[2017-09-19] MEDS: FLUCONAZOLE 200 MG/100 ML 50 ML IV SCH (09:00)
[2017-09-19] MEDS: SODIUM CHLORIDE FLUSH 0.9% 10 ML SYRINGE IVP SCH ×3 (10:03→15:14)
[2017-09-19] MEDS: SPIRONOLACTONE 25 MG TABLET PO SCH (10:16)
[2017-09-19] MEDS: TAMSULOSIN 0.4 MG CAPSULE PO SCH (10:16)
[2017-09-19] MEDS: guaiFENesin/CODEINE 5 ML UDC PO PRN ×2 (10:16→21:34)
--- NOTE | 2017-09-19 17:40 | PROVIDER PROGRESS NOTE ---
Subjective - Prog Note Date Prog Note Date: 09/19/17 Prog Note Time: 14:00 - Subjective Pt reports feeling: Improved (The patient is breathing easier and denies any fever or chills. He had an episode this morning in which his AICD fired as result of sensing 3 rapid PVCs in a row. This is the first time the AICD has fired in about a year.) Current Medications - Current Medications Current Medications: Active Medications Acetaminophen (Tylenol) 1,000 mg PO TID [facility] Last Admin: 09/19/17 13:54 Dose: 1,000 mg Alprazolam (Xanax) 0.25 mg PO BID PRN PRN Reason: Anxiety Last Admin: 09/19/17 08:18 Dose: 0.25 mg Amiodarone HCl (Pacerone) 100 mg PO DAILY [facility] Last Admin: 09/19/17 08:23 Dose: 100 mg Aspirin (Ecotrin) 81 mg PO DAILY [facility] Last Admin: 09/19/17 08:21 Dose: 81 mg Atorvastatin Calcium (Lipitor) 5 mg PO QPM [facility] Last Admin: 09/18/17 21:44 Dose: 5 mg Calamine/Phenol (Calmoseptine Oint) 1 applic TOP BID [facility] Last Admin: 09/19/17 10:05 Dose: 1 applic Carvedilol (Coreg) 6.25 mg PO BID [facility] Last Admin: 09/19/17 08:22 Dose: 6.25 mg Furosemide (Lasix) 80 mg PO DAILY [facility] Last Admin: 09/19/17 08:19 Dose: 80 mg Guaifenesin/Codeine Phosphate (Robitussin Ac) 10 ml PO Q6HR PRN PRN Reason: Cough Last Admin: 09/19/17 10:16 Dose: 10 ml Acyclovir 500 mg/ Sodium (Chloride) 260 mls @ 250 mls/hr IV TID [facility] Stop: 09/20/17 15:59 Last Infusion: 09/19/17 15:05 Dose: Infused Fluconazole (Diflucan 200 Mg/100 Ml) 50 mls @ 50 mls/hr IV DAILY [facility] Stop: 09/21/17 16:59 Last Infusion: 09/19/17 09:40 Dose: Infused Ketorolac Tromethamine (Toradol Inj) 15 mg IVP Q8HR PRN PRN Reason: PAIN Stop: 09/21/17 14:44 Lactobacillus Rhamnosus (Culturelle) 1 cap PO BID [facility] Last Admin: 09/19/17 08:21 Dose: 1 cap Levalbuterol HCl (Xopenex) 1.25 mg INH Q6HR PRN PRN Reason: Dyspnea Losartan Potassium (Cozaar) 50 mg PO DAILY [facility] Last Admin: 09/19/17 08:20 Dose: 50 mg Mineral Oil (Cavilon) 1 applic TOP PRN PRN PRN Reason: Skin Care Last Admin: 09/18/17 15:58 Dose: 1 applic Morphine Sulfate (Morphine) 3 mg IVP Q4HR PRN PRN Reason: PAIN Ondansetron HCl (Zofran Inj) 4 mg IVP Q6HR PRN PRN Reason: Nausea / Vomiting Oxycodone HCl (Roxicodone) 5 mg PO Q4HR PRN PRN Reason: Pain 5 to 7 Pantoprazole Sodium (Protonix) 40 mg PO QDAC [facility] Last Admin: 09/19/17 05:46 Dose: 40 mg Polyethylene Glycol (Miralax) 17 gm PO DAILY [facility] Last Admin: 09/19/17 10:01 Dose: Not Given Prednisone (Deltasone) 40 mg PO DAILYWM [facility] Last Admin: 09/19/17 08:18 Dose: 40 mg Sodium Chloride (Normal Saline Flush 0.9%) 10 ml IVP PRN PRN PRN Reason: NEEDED PER PROVIDER ORDERS Last Admin: 09/18/17 15:58 Dose: 10 ml Sodium Chloride (Normal Saline Flush 0.9%) 10 ml IVP 0100,0900,1700 [facility] Last Admin: 09/19/17 15:14 Dose: 10 ml Spironolactone (Aldactone) 12.5 mg PO DAILY [facility] Last Admin: 09/19/17 10:16 Dose: 12.5 mg Tamsulosin HCl (Flomax) 0.4 mg PO DAILY [facility] Last Admin: 09/19/17 10:16 Dose: 0.4 mg Home medications: Magnesium Oxide [Mag Ox] 400 mg PO BID 03/22/14 Multivitamin [Multi-Day Vitamins] 1 cap DAILY 03/22/14 Tamsulosin HCl [Flomax] 0.4 mg PO DAILY 03/22/14 Warfarin [Coumadin] 2.5 mg PO DAILY 03/22/14 ALPRAZolam [Alprazolam] 0.25 mg PO BID PRN 09/16/17 Amiodarone [Pacerone] 100 mg PO DAILY 09/16/17 Aspirin [Aspirin EC] 81 mg PO DAILY 09/16/17 Carvedilol [Carvedilol] 12.5 mg PO BID 09/16/17 Furosemide [Furosemide] 80 mg PO DAILY 09/16/17 Losartan Potassium [Losartan Potassium] 50 mg PO DAILY 09/16/17 Polyethylene Glycol 3350 [Polyethylene Glycol 3350] 8.5 - 17 gm PO DAILY Simvastatin [Simvastatin] 10 mg PO QPM 09/16/17 Spironolactone [Spironolactone] 12.5 mg PO DAILY 09/16/17 Objective - Vital Signs/Intake & Output Reviewed Vital Signs: Yes Vital Signs: Vital Signs x48h Temp Pulse Resp BP Pulse Ox 09/19/17 16:00 36.6 C 64 16 138/87 H 94 Intake & Output: Intake & Output 09/16/17 09/17/17 09/18/17 09/19/17 23:59 23:59 23:59 23:59 Intake Total 685 5564.000 2750 1410 Output Total 150 1700 1295 1660 Balance 535 3864.000 1455 -250 - Objective General Appearance: positive: No acute distress, Alert, Mild distress Eyes Bilateral: positive: Normal inspection, PERRL, EOMI, No lid inflammation, Conjunctivae nml, No scleral icterus ENT: positive: ENT inspection nml, Pharynx nml, No signs of dehydration Neck: positive: Nml inspection, Thyroid nml, No JVD, Trachea midline. negative : Thyromegaly Respiratory: positive: Chest non-tender, No respiratory distress, Breath sounds nml. negative: Wheezes, Rales, Rhonchi Cardiovascular: positive: Regular rate & rhythm, No murmur, No gallop Abdomen: positive: Non-tender, No organomegaly, Nml bowel sounds, No distention. negative: Guarding, Rebound Back: positive: Nml inspection. negative: CVA tenderness (R), CVA tenderness (L ) Skin: positive: Color nml, No rash, Warm, Dry. negative: Cyanosis Extremities: positive: Non-tender, Full ROM, Nml appearance Neurologic/Psychiatric: positive: Oriented x3, CN's nml (2-12), Motor nml, Sensation nml, Mood/affect nml - Lab Results Fish Bones: 09/19/17 05:33 09/19/17 05:33 Other Labs: Lab Results x24hrs 09/19/17 09/19/17 09/19/17 Range/Units 05:33 05:33 05:33 WBC 3.8 L (4.8-10.8) x10^3/uL RBC 4.01 L (4.70-6.10) 10^6/uL Hgb 12.6 L (14.0-18.0) g/dL Hct 38.7 L (42.0-52.0) % MCV 96.6 H (80.0-94.0) fL MCH 31.4 H (27.0-31.0) pg MCHC 32.5 (32.0-36.0) g/dL RDW 16.4 H (12.0-15.0) % Plt Count 134 (130-450) 10^3/uL MPV 8.5 (7.4-11.4) fL PT (9.9-12.6) secs INR (0.8-1.2) Sodium 141 (135-145) mmol/L Potassium 4.3 (3.5-5.0) mmol/L Chloride 109 (101-111) mmol/L Carbon Dioxide 25 (21-32) mmol/L Anion Gap 7.0 (6-13) BUN 37 H (6-20) mg/dL Creatinine 1.6 H (0.6-1.2) mg/dL Estimated GFR (MDRD) 42 L (>89) Glucose 105 H (70-100) mg/dL Calcium 7.5 L (8.5-10.3) mg/dL B-Natriuretic Peptide 191 H (5-100) pg/mL 09/19/17 Range/Units 05:33 WBC (4.8-10.8) x10^3/uL RBC (4.70-6.10) 10^6/uL Hgb (14.0-18.0) g/dL Hct (42.0-52.0) % MCV (80.0-94.0) fL MCH (27.0-31.0) pg MCHC (32.0-36.0) g/dL RDW (12.0-15.0) % Plt Count (130-450) 10^3/uL MPV (7.4-11.4) fL PT 48.3 H (9.9-12.6) secs INR 4.5 H* (0.8-1.2) Sodium (135-145) mmol/L Potassium (3.5-5.0) mmol/L Chloride (101-111) mmol/L Carbon Dioxide (21-32) mmol/L Anion Gap (6-13) BUN (6-20) mg/dL Creatinine (0.6-1.2) mg/dL Estimated GFR (MDRD) (>89) Glucose (70-100) mg/dL Calcium (8.5-10.3) mg/dL B-Natriuretic Peptide (5-100) pg/mL Assessment/Plan - Problem List (1) Diastolic congestive heart failure Impression: The patient appears to be doing better clinically. He is more ambulatory and less short of breath. He is able to do more for himself than he had been previously to his admission here. Qualifiers: Heart failure chronicity: chronic Qualified Code(s): I50.32 - Chronic diastolic (congestive) heart failure (2) Chronic kidney disease (CKD) Impression: Patient's creatinine has been steady at 1.6. Continue present care. (3) History of COPD Impression: This does not appear to be a purely acute exacerbation of COPD. The patient is breathing easier today and is more ambulatory. He got up to the bedside chair for a couple of hours. Continue Xopenex as ordered. (4) Failure to thrive in adult Impression: The patient has been declining steadily according to his daughters. He has been living alone with caregivers coming in for 4 hours 3 times a week however the patient clearly can no longer live by himself. He requires assistance with most activities of daily living. The patient's daughters are understanding of the situation and The patient was seen by a patient care representative from [facility] who feels that the patient will be appropriate for placement there and has agreed to take the patient tomorrow afternoon.. (5) Herpes zoster complicated Impression: The patient has here herpes zoster outbreak to his right lower trunk. According to the family the zoster broke out and then crusted over and was starting to heal when he became cellulitic and the lesions worsened. It appeared that there was a secondary cellulitis on top of the zosters infection. The patient has been treated with antibiotics and the cellulitic area is improving daily. We will treat the patient with antiviral creams and an oral antibiotic for the cellulitis. He is receiving prednisone for his acute exacerbation of COPD. He has been seen and evaluated by the wound care nurse who is recommending cavilon. We will order the cavilon but not make any other changes. (6) Pneumonia Impression: The patient had been treated for pneumonia with Zosyn however he was asymptomatic (other than a well controlled cough), afebrile, and his chest x- ray has consistantly failed to show any focal pneumonia but rather some possible congestive heart failure. Zosyn has been stopped.
[2017-09-19] MEDS: LEVALBUTEROL 1.25 MG/3 ML NEB INH PRN (20:59)
[2017-09-19] MEDS: ATORVASTATIN 10 MG TABLET PO SCH (21:32)
[2017-09-20] MEDS: guaiFENesin/CODEINE 5 ML UDC PO PRN (05:01)
[2017-09-20 05:05] LABS: HGB - HEMOGLOBIN 12.3 g/dL (14.0-18.0); MEAN CORPUSCULAR HEMOGLOBIN 31.9 pg (27.0-31.0); MEAN CORPUSCULAR HGB CONC 33.4 g/dL (32.0-36.0); MEAN CORPUSCULAR VOLUME 95.6 fL (80.0-94.0); MEAN PLATELET VOLUME 8.2 fL (7.4-11.4); RED BLOOD COUNT 3.85 10^6/uL (4.70-6.10); RED CELL DISTRIBUTION WIDTH 16.4 % (12.0-15.0); WHITE BLOOD COUNT 4.3 x10^3/uL (4.8-10.8)
[2017-09-20 05:10] LABS: PT - PROTHROMBIN TIME 49.2 secs (9.9-12.6)
[2017-09-20 05:14] LABS: CALCIUM 7.7 mg/dL (8.5-10.3); CREATININE 1.4 mg/dL (0.6-1.2)
[2017-09-20] MEDS: ACETAMINOPHEN 500 MG TABLET PO SCH ×2 (06:17→14:04)
[2017-09-20] MEDS: PANTOPRAZOLE 40 MG TABLET PO SCH (06:17)
[2017-09-20] MEDS: ACYCLOVIR INJ 500 MG in SODIUM CHLORIDE 0.9% 250 ML IV SCH ×2 (06:18→14:03)
[2017-09-20 06:39] LABS: INR 4.6 (0.8-1.2)
[2017-09-20] MEDS ORDERED: SODIUM CHLORIDE 0.9% 250 ML IV ONE (08:05)
[2017-09-20] MEDS: LOSARTAN 50 MG TABLET PO SCH (08:24)
[2017-09-20] MEDS: ASPIRIN EC 81 MG TABLET PO SCH (08:24)
[2017-09-20] MEDS: TAMSULOSIN 0.4 MG CAPSULE PO SCH (08:24)
[2017-09-20] MEDS: CARVEDILOL 3.125 MG TABLET PO SCH (08:25)
[2017-09-20] MEDS: FUROSEMIDE 40 MG TABLET PO SCH (08:26)
[2017-09-20] MEDS: ALPRAZolam 0.25 MG TABLET PO PRN (08:26)
[2017-09-20] MEDS: LACTOBACILLUS RHAMNOSUS GG CAPSULE PO SCH (08:27)
[2017-09-20] MEDS: predniSONE 20 MG TABLET PO SCH (08:27)
[2017-09-20] MEDS: AMIODARONE 200 MG TABLET PO SCH (08:28)
[2017-09-20] MEDS: SPIRONOLACTONE 25 MG TABLET PO SCH (08:29)
[2017-09-20] MEDS: FLUCONAZOLE 200 MG/100 ML 50 ML IV SCH (09:18)
[2017-09-20] MEDS: SODIUM CHLORIDE FLUSH 0.9% 10 ML SYRINGE IVP PRN (09:53)
[2017-09-20] MEDS: LEVALBUTEROL 1.25 MG/3 ML NEB INH PRN (10:53)
--- NOTE | 2017-09-20 10:56 | Discharge Plan ---
"Discharge Plan for SNF / PAULINE - DC Plan and Transition Orders Disposition: 03 SNF DC/Xfer Condition: Stable SNF Transition Orders: Admit to: [facility] under the care of Pablo Discharge Diagnosis: Acute exacerbation of congestive heart failure and failure to thrive. Medicare Certification: I certify that Post Hospital detention care is medically necessary on a continuing basis for any of the conditions for which she/he is receiving care during hospitalization. Notify PCP of admission and forward orders to primary provider for signature. Weight on admission and Weekly. Call PCP immediately if weight increases by 10 pounds or if patient develops dyspnea, chest pain/tightness or edema. House Bowel Program: Yes If no BM after 2 days, nurse may give M.O.M. 30ml PO PRN and /or ducolax Supp 1 [address] and /or NENITA 250mg P.O., and/or senna 1-2 tabs PO. On day 3 nurse may give repeat above order until residents constipation is resolved. Immunizations: Annual Influenza Vaccine: Yes. (between Feb 08 and September 07.) Unless allergy or already given Two-Step PPD: Yes per [facility] [id number] or appropriate documentation of approved exceptions Medications: PLEASE REFER TO THE DISCHARGE MEDICATION LIST. Allergies and Adverse Reactions: Allergies Allergy/AdvReac Type Severity Reaction Status Date / Time No Known Drug Allergies Allergy Verified 08/28/17 12:25 - Diet Type: No added salt Texture: Regular Liquids: Thin May have monthly special meal: Yes - Therapies | Activity Rehabilitation Potential: Maximize functional status Activity: Activity as Tolerated Weight Bearing: Partial Weight Assistance Devices: Wheelchair, Walker Additional Instructions: We are currently holding the patient's Coumadin as his INR was 4.5 yesterday and after being held yesterday was 4.6 today. Please watch closely. Follow Up: Follow-up with Dr. Spencer next week"
[2017-09-20] MEDS: ZINC OXIDE TOP SCH (13:53)
[2017-09-20] MEDS: MENTHOL TOP SCH (13:53)
[2017-09-20 15:12] VITALS: BP 159/94
--- NOTE | 2017-09-20 16:43 | DISCHARGE SUMMARY ---
Discharge Summary Admit Date: 09/16/17 Discharge Date: 09/20/17 Discharging Provider: Preeti Karimi DO Primary Care Provider: Preston Spencer MD Code Status: Do Not Attempt Resuscitation Condition at Discharge: Stable Discharge Disposition: 03 SNF DC/Xfer Discharge Facility Name: [facility] - DIAGNOSES Admission Diagnoses: 1. Post herpetic cellulitis 2. Pneumonia 3. History of Obstructive Sleep Apnea Discharge Diagnoses with Status of Each Condition: 1. Post herpetic cellulitis- The patient's cellulitis is clearing well with use of the antibiotics and calmoseptine as recommended by the wound care nurse. Continue present care. 2. Acute exacerbation of CHF. The patient's chest x-rays failed to ever show any type of pneumonia and the patient's initially elevated leukocyte count was most likely due to stress. His BNP was found to be elevated and he was diuresed and his breathing improved significantly. 3. History of Obstructive Sleep Apnea- The patient uses BiPAP at home at night and also during the day because it is easier for him to breathe with it. Continue present care. - HPI History of Present Illness: From Dr. constantino as history and physical: Mr. Zacarias Aviles is an 82-year-old white male who is chronically ill and has complex medical background. He has been declining steadily over the last year despite living by himself and having caregivers come in 3 times a week for 4 hours each time. He is requiring more assistance with activities of daily living and had been having some increasing shortness of breath. He reports about 3 weeks ago he developed a skin rash which appeared to be shingles this crusted over and after healing became infected. He has been seen at the emergency department and given medications which were adjusted and different antibiotics were given however he had returns again with the same complaints of infected skin and generalized weakness. - HOSPITAL COURSE Hospital Course: The patient was admitted to medical surgical bed and monitored closely. He was given antivirals for the shingles in case these were still present and he was given antibiotics for his cellulitis. The patient's rash began to clear fairly quickly and the patient's breathing status also improved with the use of diuretics. He no longer required the use of supplemental oxygen during the day and was able to ambulate with assistance in the hallways without supplemental oxygen. Because of his overall decline social work was involved in finding placement for the patient which was approved by his daughters. He will be now be transferred to [facility] where he will stay and undergo rehabilitation and if he can strengthen to the point where he could live independently again that is certainly an option. - ALLERGIES Allergies/Adverse Reactions: Allergies Allergy/AdvReac Type Severity Reaction Status Date / Time No Known Drug Allergies Allergy Verified 08/28/17 12:25 - MEDICATIONS Home Medications: Ambulatory Orders Medication Instructions Recorded Confirmed Magnesium Oxide [Mag Ox] 400 mg PO BID 03/22/14 03/22/14 Multivitamin [Multi-Day Vitamins] 1 cap DAILY 03/22/14 09/16/17 Tamsulosin HCl [Flomax] 0.4 mg PO DAILY 03/22/14 09/16/17 Warfarin [Coumadin] 2.5 mg PO DAILY 03/22/14 09/16/17 ALPRAZolam [Alprazolam] 0.25 mg PO BID PRN 09/16/17 09/16/17 Amiodarone [Pacerone] 100 mg PO DAILY 09/16/17 09/16/17 Aspirin [Aspirin EC] 81 mg PO DAILY 09/16/17 09/16/17 Carvedilol 12.5 mg PO BID 09/16/17 09/16/17 Furosemide 80 mg PO DAILY 09/16/17 09/16/17 Losartan Potassium 50 mg PO DAILY 09/16/17 09/16/17 Polyethylene Glycol 3350 8.5 - 17 gm PO DAILY 09/16/17 09/16/17 Simvastatin 10 mg PO QPM 09/16/17 09/16/17 Spironolactone 12.5 mg PO DAILY 09/16/17 09/16/17 - PHYSICAL EXAM AT DISCHARGE General Appearance: positive: No acute distress, Alert Eyes Bilateral: positive: Normal inspection, PERRL, EOMI, No lid inflammation, Conjunctivae nml, No scleral icterus ENT: positive: ENT inspection nml, Pharynx nml, No signs of dehydration Neck: positive: Nml inspection, Thyroid nml, No JVD, Trachea midline. negative : Thyromegaly Respiratory: positive: Chest non-tender, No respiratory distress, Breath sounds nml. negative: Wheezes, Rales, Rhonchi Cardiovascular: positive: Regular rate & rhythm, No gallop, Systolic murmur Peripheral Pulses: positive: 1+ Abdomen: positive: Non-tender, No organomegaly, Nml bowel sounds, No distention. negative: Tenderness Back: positive: Nml inspection. negative: CVA tenderness (R), CVA tenderness (L ) Skin: positive: Color nml, No rash, Warm, Dry. negative: Cyanosis Extremities: positive: Non-tender, Full ROM, Nml appearance Neurologic/Psychiatric: positive: Oriented x3, CN's nml (2-12), Motor nml, Sensation nml - LABS Result Diagrams: 09/20/17 04:45 09/20/17 04:45 - DIAGNOSTIC IMAGING Diagnostic Imaging Results: Final report reviewed Diagnostic Imaging Results Comments: EXAM: CHEST RADIOGRAPHY EXAM DATE: 09/18/2017 06:19 AM. CLINICAL HISTORY: Short of breath, question pneumonia. COMPARISON: 09/16/2017. TECHNIQUE: 1 view. FINDINGS: Lungs/Pleura: Diffuse mild interstitial opacities. No focal pneumonia seen. No large effusion. No gross pneumothorax. Mediastinum: Mild cardiomegaly. No mediastinal shift. Other: Stable right pacer/AICD. IMPRESSION: 1. No focal pneumonia seen. 2. Possible minimal CHF. [facility] - FOLLOW UP Follow Up: Patient will follow up with Dr. Spencer in the next week. - TIME SPENT Time Spent in Discharge (Minutes): 40
== END 2017-09-20 15:35 | DRG 602 ==
LOC: ED 11:04 → MS3 14:50 → ICU 09-17 09:10
PROVIDERS: ADMIT Internal Medicine; ATTEND Hospitalist
DX: J18.9 Pneumonia, unspecified organism (principal); B02.9 Zoster without complications; J44.0 Chronic obstructive pulmonary disease with (acute) lower respiratory infection; I10 Essential (primary) hypertension; G62.9 Polyneuropathy, unspecified; M10.9 Gout, unspecified; I48.91 Unspecified atrial fibrillation; I25.10 Atherosclerotic heart disease of native coronary artery without angina pectoris; L03.311 Cellulitis of abdominal wall; I50.33 Acute on chronic diastolic (congestive) heart failure; Z86.73 Personal history of transient ischemic attack (TIA), and cerebral infarction without residual deficits; Z95.0 Presence of cardiac pacemaker; I42.9 Cardiomyopathy, unspecified; L03.317 Cellulitis of buttock; I47.2 Ventricular tachycardia; B02.8 Zoster with other complications; J44.1 Chronic obstructive pulmonary disease with (acute) exacerbation; D61.818 Other pancytopenia; L03.312 Cellulitis of back [any part except buttock and flank]; G47.33 Obstructive sleep apnea (adult) (pediatric); I48.0 Paroxysmal atrial fibrillation; I87.2 Venous insufficiency (chronic) (peripheral); I49.3 Ventricular premature depolarization; N18.9 Chronic kidney disease, unspecified; R62.7 Adult failure to thrive; Z66 Do not resuscitate; Z60.2 Problems related to living alone; Z85.038 Personal history of other malignant neoplasm of large intestine; Z90.49 Acquired absence of other specified parts of digestive tract; Z92.21 Personal history of antineoplastic chemotherapy; Z85.72 Personal history of non-Hodgkin lymphomas; Z91.81 History of falling; Z79.01 Long term (current) use of anticoagulants; Z95.810 Presence of automatic (implantable) cardiac defibrillator; Z92.3 Personal history of irradiation; Z79.82 Long term (current) use of aspirin
CPT/HCPCS: 36415; 71045; 80048; 80053; 81001; 81003; 83690; 83880; 84484; 85025; 85610; 87040; 87086; 87150; 87640; 93005; 93306; 94640; 96365; 99283; 99285

== ENCOUNTER 2018-04-08 11:40 | Outpatient (CLI) | payer MEDICARE, OTHER | END 2018-04-08 11:41 | disposition home or self-care (01) | LOC: LAB.WCP 11:40 | PROVIDERS: ATTEND Physician Assistant | DX: Z51.81 Encounter for therapeutic drug level monitoring (principal); Z79.899 Other long term (current) drug therapy | CPT/HCPCS: 36415; 84443 ==

== ENCOUNTER 2018-04-22 11:32 | Outpatient (CLI) | payer MEDICARE, OTHER ==
[2018-04-22 19:03] LABS: PT - PROTHROMBIN TIME 22.4 secs (9.9-12.6)
== END 2018-04-22 11:33 | disposition home or self-care (01) ==
LOC: LAB.WCP 11:32
PROVIDERS: ATTEND Family Medicine
DX: I48.91 Unspecified atrial fibrillation (principal); Z79.01 Long term (current) use of anticoagulants
CPT/HCPCS: 36415; 85610

== ENCOUNTER 2018-08-21 08:00 | Outpatient (CLI) | payer MEDICARE, OTHER ==
[2018-08-21 19:09] LABS: BASOPHILS % (AUTO) 0.6 %; EOSINOPHILS # (AUTO) 0.2 10^3/uL (0.0-0.7); EOSINOPHILS % (AUTO) 4.1 %; HGB - HEMOGLOBIN 15.3 g/dL (14.0-18.0); LYMPHOCYTES # (AUTO) 1.5 10^3/uL (1.5-3.5); MEAN CORPUSCULAR HEMOGLOBIN 31.8 pg (27.0-31.0); MEAN CORPUSCULAR HGB CONC 32.5 g/dL (32.0-36.0); MEAN CORPUSCULAR VOLUME 97.8 fL (80.0-94.0); MEAN PLATELET VOLUME 9.7 fL (7.4-11.4); MONOCYTES # (AUTO) 0.7 10^3/uL (0.0-1.0); MONOCYTES % (AUTO) 13.5 %; NEUTROPHILS # (AUTO) 2.9 10^3/uL (1.5-6.6); NEUTROPHILS % (AUTO) 53.8 %; PLT - PLATELET COUNT 181 10^3/uL (130-450); RED BLOOD COUNT 4.82 10^6/uL (4.70-6.10); RED CELL DISTRIBUTION WIDTH 16.2 % (12.0-15.0); WHITE BLOOD COUNT 5.4 x10^3/uL (4.8-10.8)
[2018-08-21 19:22] LABS: ALBUMIN 3.8 g/dL (3.2-5.5); ALKALINE PHOSPHATASE 100 IU/L (42-121); ALT ALANINE AMINOTRANSFERASE 23 IU/L (10-60); AST ASPARTATE AMINOTRANSFERASE 37 IU/L (10-42); BILIRUBIN,TOTAL 1.5 mg/dL (0.2-1.0); BUN - BLOOD UREA NITROGEN 38 mg/dL (6-20); CALCIUM 8.9 mg/dL (8.5-10.3); CARBON DIOXIDE - CO2 32 mmol/L (21-32); CHLORIDE 98 mmol/L (101-111); CREATININE 1.3 mg/dL (0.6-1.2); GFR - MDRD 53 (>89); GLUCOSE 79 mg/dL (70-100); SODIUM 139 mmol/L (135-145); TOTAL PROTEIN 7.6 g/dL (6.7-8.2)
[2018-08-21 19:36] LABS: THYROID STIMULATING HORMONE 6.25 uIU/mL (0.34-5.60)
[2018-08-21 19:42] LABS: HB2 TOTAL 16.9 g/dL; HEMOGLOBIN A1C 0.56 g/dL; HEMOGLOBIN A1C % 5.2 % (4.6-6.2)
[2018-08-21 20:43] LABS: FREE T4 (FREE THYROXINE) 0.83 ng/dL (0.58-1.64)
== END 2018-08-21 23:59 | disposition home or self-care (01) ==
LOC: LAB.WCP 08:00
PROVIDERS: ATTEND Family Medicine
DX: I10 Essential (primary) hypertension (principal); I47.2 Ventricular tachycardia; I48.91 Unspecified atrial fibrillation
CPT/HCPCS: 36415; 80053; 83036; 84439; 84443; 85025

== ENCOUNTER 2018-08-28 08:00 | Outpatient (CLI) | payer MEDICARE, OTHER | END 2018-08-28 23:59 | disposition home or self-care (01) | LOC: LAB.WCP 08:00 | PROVIDERS: ATTEND Family Medicine | DX: I48.91 Unspecified atrial fibrillation (principal); Z79.01 Long term (current) use of anticoagulants | CPT/HCPCS: 81025 ==

== ENCOUNTER 2018-09-25 08:00 | Outpatient (CLI) | payer MEDICARE, OTHER | END 2018-09-25 23:59 | disposition home or self-care (01) | LOC: LAB.WCP 08:00 | PROVIDERS: ATTEND Family Medicine | DX: I48.91 Unspecified atrial fibrillation (principal); Z79.01 Long term (current) use of anticoagulants ==

== ENCOUNTER 2018-10-02 08:00 | Outpatient (CLI) | payer MEDICARE, OTHER | END 2018-10-02 23:59 | disposition home or self-care (01) | LOC: LAB.WCP 08:00 | PROVIDERS: ATTEND Family Medicine | DX: I48.91 Unspecified atrial fibrillation (principal); Z79.01 Long term (current) use of anticoagulants | CPT/HCPCS: 81025 ==

== ENCOUNTER 2018-10-14 08:00 | Outpatient (CLI) | payer MEDICARE, OTHER | END 2018-10-14 08:01 | disposition home or self-care (01) | LOC: LAB.WCP 08:00 | PROVIDERS: ATTEND Family Medicine | DX: I48.91 Unspecified atrial fibrillation (principal); Z79.01 Long term (current) use of anticoagulants ==

== ENCOUNTER 2018-10-30 08:00 | Outpatient (CLI) | payer MEDICARE, OTHER | END 2018-10-30 23:59 | disposition home or self-care (01) | LOC: LAB.WCP 08:00 | PROVIDERS: ATTEND Family Medicine | DX: I48.91 Unspecified atrial fibrillation (principal); Z79.01 Long term (current) use of anticoagulants ==

== ENCOUNTER 2018-11-13 08:00 | Outpatient (CLI) | payer MEDICARE, OTHER | END 2018-11-13 08:01 | disposition home or self-care (01) | LOC: LAB.WCP 08:00 | PROVIDERS: ATTEND Family Medicine | DX: I48.91 Unspecified atrial fibrillation (principal); Z79.01 Long term (current) use of anticoagulants ==

== ENCOUNTER 2018-11-27 08:00 | Outpatient (CLI) | payer MEDICARE, OTHER ==
[2018-11-27 19:53] LABS: CALCIUM 8.9 mg/dL (8.5-10.3); CREATININE 1.5 mg/dL (0.6-1.2)
== END 2018-11-27 08:01 | disposition home or self-care (01) ==
LOC: LAB.WCP 08:00
PROVIDERS: ATTEND Physician Assistant Medical
DX: I42.0 Dilated cardiomyopathy (principal); I48.91 Unspecified atrial fibrillation; Z79.01 Long term (current) use of anticoagulants
CPT/HCPCS: 36415; 80048

== ENCOUNTER 2018-12-16 08:00 | Outpatient (CLI) | payer MEDICARE, OTHER | END 2018-12-16 08:01 | disposition home or self-care (01) | LOC: LAB.WCP 08:00 | PROVIDERS: ATTEND Physician Assistant Medical | DX: I48.91 Unspecified atrial fibrillation (principal); Z79.01 Long term (current) use of anticoagulants ==

== ENCOUNTER 2018-12-23 08:00 | Outpatient (CLI) | payer MEDICARE, OTHER | END 2018-12-23 08:01 | disposition home or self-care (01) | LOC: LAB.WCP 08:00 | PROVIDERS: ATTEND Family Medicine | DX: I48.91 Unspecified atrial fibrillation (principal); Z79.01 Long term (current) use of anticoagulants ==

== ENCOUNTER 2019-01-06 08:00 | Outpatient (CLI) | payer MEDICARE, OTHER | END 2019-01-06 08:01 | disposition home or self-care (01) | LOC: LAB.WCP 08:00 | PROVIDERS: ATTEND Family Medicine | DX: I48.91 Unspecified atrial fibrillation (principal); Z79.01 Long term (current) use of anticoagulants ==

== ENCOUNTER 2019-01-22 08:00 | Outpatient (CLI) | payer MEDICARE, OTHER | END 2019-01-22 23:59 | disposition home or self-care (01) | LOC: LAB.WCP 08:00 | PROVIDERS: ATTEND Family Medicine | DX: I48.91 Unspecified atrial fibrillation (principal); Z79.01 Long term (current) use of anticoagulants ==

== ENCOUNTER 2019-02-01 12:08 | Outpatient (CLI) | payer MEDICARE, OTHER | END 2019-02-01 12:09 | disposition EMS.NT | LOC: EMS 12:08 | PROVIDERS: ATTEND Surgery | DX: S81.802A Unspecified open wound, left lower leg, initial encounter (principal); W22.8XXA Striking against or struck by other objects, initial encounter; Y92.009 Unspecified place in unspecified non-institutional (private) residence as the place of occurrence of the external cause ==

== ENCOUNTER 2019-03-24 08:00 | Outpatient (CLI) | payer MEDICARE, OTHER | END 2019-03-24 23:59 | disposition home or self-care (01) | LOC: LAB.WCP 08:00 | PROVIDERS: ATTEND Physician Assistant Medical | DX: Z79.01 Long term (current) use of anticoagulants (principal); I48.91 Unspecified atrial fibrillation ==

== ENCOUNTER 2019-04-23 08:00 | Outpatient (CLI) | payer MEDICARE, OTHER | END 2019-04-23 23:59 | disposition home or self-care (01) | LOC: LAB.WCP 08:00 | PROVIDERS: ATTEND Family Medicine | DX: Z79.01 Long term (current) use of anticoagulants (principal); I48.91 Unspecified atrial fibrillation ==

== ENCOUNTER 2019-05-21 08:00 | Outpatient (CLI) | payer MEDICARE, OTHER | END 2019-05-21 23:59 | disposition home or self-care (01) | LOC: LAB.WCP 08:00 | PROVIDERS: ATTEND Family Medicine | DX: Z79.01 Long term (current) use of anticoagulants (principal); I48.91 Unspecified atrial fibrillation ==

== ENCOUNTER 2019-06-19 08:00 | Outpatient (CLI) | payer MEDICARE, OTHER | END 2019-06-19 23:59 | disposition home or self-care (01) | LOC: LAB.WCP 08:00 | PROVIDERS: ATTEND Family Medicine | DX: Z79.01 Long term (current) use of anticoagulants (principal); I48.91 Unspecified atrial fibrillation ==

== ENCOUNTER 2019-07-17 08:00 | Outpatient (CLI) | payer MEDICARE, OTHER | END 2019-07-17 23:59 | disposition home or self-care (01) | LOC: LAB.WCP 08:00 | PROVIDERS: ATTEND Family Medicine | DX: I48.91 Unspecified atrial fibrillation (principal); Z79.01 Long term (current) use of anticoagulants ==

== ENCOUNTER 2019-08-14 08:00 | Outpatient (CLI) | payer MEDICARE, OTHER | END 2019-08-14 23:59 | disposition home or self-care (01) | LOC: LAB.WCP 08:00 | PROVIDERS: ATTEND Family Medicine | DX: I48.91 Unspecified atrial fibrillation (principal); Z79.01 Long term (current) use of anticoagulants ==

== ENCOUNTER 2019-08-14 08:00 | Outpatient (CLI) | payer MEDICARE, OTHER | END 2019-08-14 23:59 | disposition home or self-care (01) | LOC: LAB.WCP 08:00 | PROVIDERS: ATTEND Family Medicine | DX: I48.91 Unspecified atrial fibrillation (principal); Z79.01 Long term (current) use of anticoagulants ==

== ENCOUNTER 2019-09-11 08:00 | Outpatient (CLI) | payer MEDICARE, OTHER | END 2019-09-11 23:59 | disposition home or self-care (01) | LOC: LAB.WCP 08:00 | PROVIDERS: ATTEND Family Medicine | DX: I48.91 Unspecified atrial fibrillation (principal); Z79.01 Long term (current) use of anticoagulants ==

== ENCOUNTER 2019-09-24 08:00 | Outpatient (CLI) | payer MEDICARE, OTHER | END 2019-09-24 08:01 | disposition home or self-care (01) | LOC: LAB.WCP 08:00 | PROVIDERS: ATTEND Family Medicine | DX: I48.91 Unspecified atrial fibrillation (principal); Z79.01 Long term (current) use of anticoagulants ==

== ENCOUNTER 2019-10-23 08:00 | Outpatient (CLI) | payer MEDICARE, OTHER | END 2019-10-23 23:59 | disposition home or self-care (01) | LOC: LAB.WCP 08:00 | PROVIDERS: ATTEND Family Medicine | DX: I48.91 Unspecified atrial fibrillation (principal); Z79.01 Long term (current) use of anticoagulants ==

== ENCOUNTER 2019-11-27 08:00 | Outpatient (CLI) | payer MEDICARE, OTHER | END 2019-11-27 23:59 | disposition home or self-care (01) | LOC: LAB.WCP 08:00 | PROVIDERS: ATTEND Family Medicine | DX: I48.91 Unspecified atrial fibrillation (principal); Z79.01 Long term (current) use of anticoagulants ==

== ENCOUNTER 2019-12-18 08:00 | Outpatient (CLI) | payer MEDICARE, OTHER | END 2019-12-18 23:59 | disposition home or self-care (01) | LOC: LAB.WCP 08:00 | PROVIDERS: ATTEND Family Medicine | DX: I48.91 Unspecified atrial fibrillation (principal); Z79.01 Long term (current) use of anticoagulants ==

== ENCOUNTER 2020-01-15 08:00 | Outpatient (CLI) | payer MEDICARE, OTHER | END 2020-01-15 23:59 | disposition home or self-care (01) | LOC: LAB.WCP 08:00 | PROVIDERS: ATTEND Family Medicine | DX: I48.91 Unspecified atrial fibrillation (principal); Z79.01 Long term (current) use of anticoagulants ==

== ENCOUNTER 2020-02-19 08:00 | Outpatient (CLI) | payer MEDICARE, OTHER | END 2020-02-19 23:59 | disposition home or self-care (01) | LOC: LAB.WCP 08:00 | PROVIDERS: ATTEND Family Medicine | DX: I48.91 Unspecified atrial fibrillation (principal); Z79.01 Long term (current) use of anticoagulants ==

== ENCOUNTER 2020-03-18 08:00 | Outpatient (CLI) | payer MEDICARE, OTHER | END 2020-03-18 23:59 | disposition home or self-care (01) | LOC: LAB.WCP 08:00 | PROVIDERS: ATTEND Family Medicine | DX: Z79.01 Long term (current) use of anticoagulants (principal) ==

== ENCOUNTER 2020-04-15 08:00 | Outpatient (CLI) | payer MEDICARE, OTHER | END 2020-04-15 23:59 | disposition home or self-care (01) | LOC: LAB.WCP 08:00 | PROVIDERS: ATTEND Internal Medicine | DX: Z79.01 Long term (current) use of anticoagulants (principal) ==

== ENCOUNTER 2020-05-20 08:00 | Outpatient (CLI) | payer MEDICARE, OTHER | END 2020-05-20 23:59 | disposition home or self-care (01) | LOC: LAB.WCP 08:00 | PROVIDERS: ATTEND Internal Medicine | DX: Z79.01 Long term (current) use of anticoagulants (principal) ==

== ENCOUNTER 2020-05-24 07:00 | Outpatient (CLI) | payer MEDICARE, OTHER ==
[2020-05-24 18:48] LABS: BUN - BLOOD UREA NITROGEN 33 mg/dL (6-20); CARBON DIOXIDE - CO2 29 mmol/L (21-32); CHLORIDE 101 mmol/L (101-111); CHOL/HDL RATIO 3.1 (<5.0); CHOLESTEROL 124 mg/dL; CREATININE 1.3 mg/dL (0.6-1.2); GLUCOSE 90 mg/dL (70-100); HDL CHOLESTEROL 40 mg/dL; LDL CHOLESTEROL,CALCULATED 66 mg/dL; LDL/HDL RATIO 1.7 (<3.6); SODIUM 140 mmol/L (135-145); VLDL CHOLESTEROL 18 mg/dL
== END 2020-05-24 23:59 | disposition home or self-care (01) ==
LOC: LAB.WCP 07:00
PROVIDERS: ATTEND Family Medicine
DX: N18.9 Chronic kidney disease, unspecified (principal); E78.5 Hyperlipidemia, unspecified; I48.91 Unspecified atrial fibrillation
CPT/HCPCS: 36415; 80048; 80061; 83721; 84443

== ENCOUNTER 2020-06-17 08:00 | Outpatient (CLI) | payer MEDICARE, OTHER | END 2020-06-17 23:59 | disposition home or self-care (01) | LOC: LAB.WCP 08:00 | PROVIDERS: ATTEND Internal Medicine | DX: Z79.01 Long term (current) use of anticoagulants (principal) ==

== ENCOUNTER 2020-07-01 08:00 | Outpatient (CLI) | payer MEDICARE, OTHER | END 2020-07-01 23:59 | disposition home or self-care (01) | LOC: LAB.WCP 08:00 | PROVIDERS: ATTEND Internal Medicine | DX: Z79.01 Long term (current) use of anticoagulants (principal) ==

== ENCOUNTER 2020-07-29 08:00 | Outpatient (CLI) | payer MEDICARE, OTHER | END 2020-07-29 23:59 | disposition home or self-care (01) | LOC: LAB.WCP 08:00 | PROVIDERS: ATTEND Internal Medicine | DX: Z79.01 Long term (current) use of anticoagulants (principal); I47.2 Ventricular tachycardia ==

== ENCOUNTER 2020-08-24 08:00 | Outpatient (CLI) | payer MEDICARE, OTHER | END 2020-08-24 23:59 | disposition home or self-care (01) | LOC: LAB.WCP 08:00 | PROVIDERS: ATTEND Internal Medicine | DX: I48.91 Unspecified atrial fibrillation (principal); Z79.01 Long term (current) use of anticoagulants ==

== ENCOUNTER 2020-09-09 08:00 | Outpatient (CLI) | payer MEDICARE, OTHER | END 2020-09-09 23:59 | disposition home or self-care (01) | LOC: LAB.WCP 08:00 | PROVIDERS: ATTEND Internal Medicine | DX: Z79.01 Long term (current) use of anticoagulants (principal); I48.91 Unspecified atrial fibrillation ==

== ENCOUNTER 2020-09-30 08:00 | Outpatient (CLI) | payer MEDICARE, OTHER | END 2020-09-30 23:59 | disposition home or self-care (01) | LOC: LAB.WCP 08:00 | PROVIDERS: ATTEND Internal Medicine | DX: I48.91 Unspecified atrial fibrillation (principal); Z79.01 Long term (current) use of anticoagulants ==

== ENCOUNTER 2020-10-24 08:00 | Outpatient (CLI) | payer MEDICARE, OTHER | END 2020-10-24 23:59 | disposition home or self-care (01) | LOC: LAB.WCP 08:00 | PROVIDERS: ATTEND Internal Medicine | DX: I48.91 Unspecified atrial fibrillation (principal); Z79.01 Long term (current) use of anticoagulants ==

== ENCOUNTER 2020-11-21 08:00 | Outpatient (CLI) | payer MEDICARE, OTHER | END 2020-11-21 23:59 | disposition home or self-care (01) | LOC: LAB.WCP 08:00 | PROVIDERS: ATTEND Internal Medicine | DX: I48.21 Permanent atrial fibrillation (principal); Z79.01 Long term (current) use of anticoagulants ==

== ENCOUNTER 2020-12-19 08:00 | Outpatient (CLI) | payer MEDICARE, OTHER | END 2020-12-19 23:59 | disposition home or self-care (01) | LOC: LAB.WCP 08:00 | PROVIDERS: ATTEND Family Medicine | DX: I48.21 Permanent atrial fibrillation (principal); Z79.01 Long term (current) use of anticoagulants ==

== ENCOUNTER 2021-01-18 08:00 | Outpatient (CLI) | payer MEDICARE, OTHER | END 2021-01-18 23:59 | disposition home or self-care (01) | LOC: LAB.WCP 08:00 | PROVIDERS: ATTEND Internal Medicine | DX: I48.21 Permanent atrial fibrillation (principal); Z79.01 Long term (current) use of anticoagulants ==

== ENCOUNTER 2021-02-15 08:00 | Outpatient (CLI) | payer MEDICARE, OTHER | END 2021-02-15 23:59 | disposition home or self-care (01) | LOC: LAB.WCP 08:00 | PROVIDERS: ATTEND Internal Medicine | DX: I48.21 Permanent atrial fibrillation (principal); Z79.01 Long term (current) use of anticoagulants ==

== ENCOUNTER 2021-04-19 08:00 | Outpatient (CLI) | payer MEDICARE, OTHER | END 2021-04-19 23:59 | disposition home or self-care (01) | LOC: LAB.WCP 08:00 | PROVIDERS: ATTEND Internal Medicine | DX: I48.21 Permanent atrial fibrillation (principal); Z79.01 Long term (current) use of anticoagulants ==

== ENCOUNTER 2021-05-10 08:00 | Outpatient (CLI) | payer MEDICARE, OTHER | END 2021-05-10 23:59 | disposition home or self-care (01) | LOC: LAB.WCP 08:00 | PROVIDERS: ATTEND Internal Medicine | DX: I48.21 Permanent atrial fibrillation (principal); Z79.01 Long term (current) use of anticoagulants ==

== ENCOUNTER 2021-06-21 14:54 | Outpatient (CLI) | payer MEDICARE, OTHER ==
[2021-06-21 18:34] LABS: ALBUMIN 3.5 g/dL (3.2-5.5); ALBUMIN/GLOBULIN RATIO 0.9 (1.0-2.2); BILIRUBIN,TOTAL 1.1 mg/dL (0.2-1.0); CALCIUM 8.9 mg/dL (8.5-10.3); CREATININE 1.4 mg/dL (0.6-1.2); POTASSIUM 4.9 mmol/L (3.5-5.0); TOTAL PROTEIN 7.3 g/dL (6.7-8.2)
== END 2021-06-21 14:55 | disposition home or self-care (01) ==
LOC: LAB.N 14:54
PROVIDERS: ATTEND Internal Medicine Cardiovascular Disease
DX: I48.21 Permanent atrial fibrillation (principal)
CPT/HCPCS: 36415; 80053; 84443

== ENCOUNTER 2021-07-24 13:12 | Outpatient (CLI) | payer MEDICARE, OTHER ==
[2021-07-24 17:48] LABS: BASOPHILS # (AUTO) 0.1 10^3/uL (0.0-0.1); BASOPHILS % (AUTO) 0.9 %; EOSINOPHILS # (AUTO) 0.2 10^3/uL (0.0-0.7); EOSINOPHILS % (AUTO) 2.9 %; HCT - HEMATOCRIT 46.6 % (42.0-52.0); LYMPHOCYTES # (AUTO) 1.4 10^3/uL (1.5-3.5); LYMPHOCYTES % (AUTO) 25.9 %; MEAN CORPUSCULAR HEMOGLOBIN 33.3 pg (27.0-31.0); MEAN CORPUSCULAR HGB CONC 32.2 g/dL (32.0-36.0); MEAN CORPUSCULAR VOLUME 103.3 fL (80.0-94.0); MEAN PLATELET VOLUME 11.2 fL (7.4-11.4); MONOCYTES # (AUTO) 0.7 10^3/uL (0.0-1.0); MONOCYTES % (AUTO) 13.3 %; NEUTROPHILS # (AUTO) 3.2 10^3/uL (1.5-6.6); NEUTROPHILS % (AUTO) 56.6 %; PLT - PLATELET COUNT 206 10^3/uL (130-450); RED BLOOD COUNT 4.51 10^6/uL (4.70-6.10); RED CELL DISTRIBUTION WIDTH 13.9 % (12.0-15.0); WHITE BLOOD COUNT 5.6 x10^3/uL (4.8-10.8)
[2021-07-24 18:23] LABS: THYROID STIMULATING HORMONE 3.28 uIU/mL (0.34-5.60)
[2021-07-24 18:24] LABS: ALBUMIN 3.6 g/dL (3.2-5.5); ALBUMIN/GLOBULIN RATIO 1.1 (1.0-2.2); ALKALINE PHOSPHATASE 101 IU/L (42-121); ALT ALANINE AMINOTRANSFERASE 18 IU/L (10-60); AST ASPARTATE AMINOTRANSFERASE 30 IU/L (10-42); BILIRUBIN,TOTAL 0.9 mg/dL (0.2-1.0); BUN - BLOOD UREA NITROGEN 41 mg/dL (6-20); CALCIUM 8.7 mg/dL (8.5-10.3); CARBON DIOXIDE - CO2 31 mmol/L (21-32); CHLORIDE 97 mmol/L (101-111); CHOL/HDL RATIO 3.2 (<5.0); CHOLESTEROL 126 mg/dL; CREATININE 1.4 mg/dL (0.6-1.2); GFR - MDRD 48 (>89); GLUCOSE 77 mg/dL (70-100); HDL CHOLESTEROL 39 mg/dL; LDL CHOLESTEROL,CALCULATED 69 mg/dL; LDL/HDL RATIO 1.8 (<3.6); POTASSIUM 4.2 mmol/L (3.5-5.0); SODIUM 137 mmol/L (135-145); TRIGLYCERIDES 92 mg/dL; VLDL CHOLESTEROL 18 mg/dL
[2021-07-24 20:13] LABS: ESTIMATED AVERAGE GLUCOSE 103 mg/dL (70-100); HEMOGLOBIN A1c% 5.2 % (4.27-6.07)
== END 2021-07-24 13:13 | disposition home or self-care (01) ==
LOC: LAB.N 13:12
PROVIDERS: ATTEND Physician Assistant Medical
DX: I42.0 Dilated cardiomyopathy (principal); E78.5 Hyperlipidemia, unspecified; I49.01 Ventricular fibrillation; R73.9 Hyperglycemia, unspecified; N18.31 Chronic kidney disease, stage 3a; Z79.01 Long term (current) use of anticoagulants; I48.21 Permanent atrial fibrillation
CPT/HCPCS: 36415; 80053; 80061; 83036; 83721; 83735; 84443; 85025

== ENCOUNTER 2021-07-31 13:07 | Outpatient (CLI) | payer MEDICARE, OTHER ==
--- NOTE | 2021-07-31 16:17 | XRAY Report ---
PROCEDURE: Wrist 3 View RT INDICATIONS: R WRIST PX TECHNIQUE: 3 views of the wrist were acquired. COMPARISON: None FINDINGS: Bones: No fractures or dislocations. No suspicious bony lesions. 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 Soft tissues: Scattered vascular calcifications noted in the distal forearm. IMPRESSION: No acute osseous lesion. If there persistent symptoms or continued clinical concern for pathology, th en repeat plain film radiographs (7-10 days) or advanced imaging (CT, MR, bone scan) should be consid ered for further evaluation. Osteoarthritis. Reviewed by: Danielle Lin MD, PhD on 07/31/2021 4:16 PM PST Approved by: Danielle Lin MD, PhD on 07/31/2021 4:16 PM PST Station ID: [id number]
== END 2021-07-31 13:08 | disposition home or self-care (01) ==
LOC: DI.N 13:07
PROVIDERS: ATTEND Internal Medicine
DX: M19.031 Primary osteoarthritis, right wrist (principal)

== ENCOUNTER 2021-08-16 14:56 | Outpatient (CLI) | payer MEDICARE, OTHER ==
[2021-08-16 17:59] LABS: BASOPHILS % (AUTO) 0.4 %; EOSINOPHILS # (AUTO) 0.2 10^3/uL (0.0-0.7); EOSINOPHILS % (AUTO) 2.2 %; HCT - HEMATOCRIT 46.8 % (42.0-52.0); HGB - HEMOGLOBIN 15.3 g/dL (14.0-18.0); LYMPHOCYTES # (AUTO) 1.3 10^3/uL (1.5-3.5); LYMPHOCYTES % (AUTO) 18.4 %; MEAN CORPUSCULAR HEMOGLOBIN 33.2 pg (27.0-31.0); MEAN CORPUSCULAR HGB CONC 32.7 g/dL (32.0-36.0); MEAN CORPUSCULAR VOLUME 101.5 fL (80.0-94.0); MEAN PLATELET VOLUME 10.9 fL (7.4-11.4); MONOCYTES # (AUTO) 0.8 10^3/uL (0.0-1.0); MONOCYTES % (AUTO) 11.8 %; NEUTROPHILS # (AUTO) 4.6 10^3/uL (1.5-6.6); NEUTROPHILS % (AUTO) 66.5 %; PLT - PLATELET COUNT 188 10^3/uL (130-450); RED BLOOD COUNT 4.61 10^6/uL (4.70-6.10); RED CELL DISTRIBUTION WIDTH 13.6 % (12.0-15.0); WHITE BLOOD COUNT 6.9 x10^3/uL (4.8-10.8)
[2021-08-16 21:22] LABS: CALCIUM 8.9 mg/dL (8.5-10.3); CREATININE 1.4 mg/dL (0.6-1.2); POTASSIUM 4.8 mmol/L (3.5-5.0); URIC ACID 8.2 mg/dL (2.6-7.2)
== END 2021-08-16 14:57 | disposition home or self-care (01) ==
LOC: LAB.N 14:56
PROVIDERS: ATTEND Internal Medicine
DX: I48.21 Permanent atrial fibrillation (principal); Z79.01 Long term (current) use of anticoagulants; Z87.39 Personal history of other diseases of the musculoskeletal system and connective tissue
CPT/HCPCS: 36415; 80048; 82043; 82570; 84550; 85025

== ENCOUNTER 2021-08-23 08:00 | Outpatient (CLI) | payer MEDICARE, OTHER | END 2021-08-23 23:59 | disposition home or self-care (01) | LOC: LAB.N 08:00 | PROVIDERS: ATTEND Nurse Practitioner Family | DX: I48.21 Permanent atrial fibrillation (principal); Z79.01 Long term (current) use of anticoagulants ==

== ENCOUNTER 2021-10-04 08:00 | Outpatient (CLI) | payer MEDICARE, OTHER | END 2021-10-04 23:59 | disposition home or self-care (01) | LOC: LAB.N 08:00 | PROVIDERS: ATTEND Internal Medicine | DX: I48.21 Permanent atrial fibrillation (principal); Z79.01 Long term (current) use of anticoagulants ==

== ENCOUNTER 2021-12-01 08:00 | Outpatient (CLI) | payer MEDICARE, OTHER | END 2021-12-01 23:59 | disposition home or self-care (01) | LOC: LAB.WCP 08:00 | PROVIDERS: ATTEND Internal Medicine | DX: I48.21 Permanent atrial fibrillation (principal); Z79.01 Long term (current) use of anticoagulants ==

== ENCOUNTER 2021-12-29 08:00 | Outpatient (CLI) | payer MEDICARE, OTHER | END 2021-12-29 08:01 | disposition home or self-care (01) | LOC: LAB.N 08:00 | PROVIDERS: ATTEND Internal Medicine | DX: I48.21 Permanent atrial fibrillation (principal); Z79.01 Long term (current) use of anticoagulants ==

== ENCOUNTER 2022-02-23 08:00 | Outpatient (CLI) | payer MEDICARE, OTHER | END 2022-02-23 23:59 | disposition home or self-care (01) | LOC: LAB.N 08:00 | PROVIDERS: ATTEND Internal Medicine | DX: Z79.01 Long term (current) use of anticoagulants (principal); I48.21 Permanent atrial fibrillation ==

== ENCOUNTER 2022-04-27 08:00 | Outpatient (CLI) | payer MEDICARE, OTHER | END 2022-04-27 23:59 | disposition home or self-care (01) | LOC: LAB.WCP 08:00 | PROVIDERS: ATTEND Internal Medicine | DX: Z79.01 Long term (current) use of anticoagulants (principal); I48.21 Permanent atrial fibrillation ==

== ENCOUNTER 2022-05-22 09:29 | Inpatient (IN) | payer MEDICARE, OTHER ==
[2022-05-22] MEDS ORDERED: IPRATROPIUM/ALBUTEROL 3 ML NEB INH STA (09:42)
[2022-05-22 10:11] LABS: BASOPHILS % (AUTO) 0.2 %; EOSINOPHILS % (AUTO) 0.7 %; HCT - HEMATOCRIT 44.3 % (42.0-52.0); HGB - HEMOGLOBIN 14.1 g/dL (14.0-18.0); LYMPHOCYTES # (AUTO) 0.7 10^3/uL (1.5-3.5); LYMPHOCYTES % (AUTO) 12.3 %; MEAN CORPUSCULAR HEMOGLOBIN 31.6 pg (27.0-31.0); MEAN CORPUSCULAR HGB CONC 31.8 g/dL (32.0-36.0); MEAN CORPUSCULAR VOLUME 99.3 fL (80.0-94.0); MEAN PLATELET VOLUME 11.1 fL (7.4-11.4); MONOCYTES # (AUTO) 0.9 10^3/uL (0.0-1.0); MONOCYTES % (AUTO) 15.4 %; NEUTROPHILS % (AUTO) 70.9 %; PLT - PLATELET COUNT 174 10^3/uL (130-450); RED BLOOD COUNT 4.46 10^6/uL (4.70-6.10); WHITE BLOOD COUNT 5.6 x10^3/uL (4.8-10.8)
[2022-05-22 10:19] LABS: PT - PROTHROMBIN TIME 41.4 secs (9.9-12.6)
[2022-05-22 10:24] LABS: ALBUMIN 3.1 g/dL (3.2-5.5); ALBUMIN/GLOBULIN RATIO 0.8 (1.0-2.2); BILIRUBIN,TOTAL 1.2 mg/dL (0.2-1.0); CALCIUM 8.3 mg/dL (8.5-10.3); CREATININE 1.2 mg/dL (0.6-1.2); POTASSIUM 4.7 mmol/L (3.5-5.0)
--- NOTE | 2022-05-22 10:37 | ED Physician Documentation ---
PD HPI DYSPNEA - Stated complaint Stated Complaint: SOA - Chief complaint Chief Complaint: Resp - History obtained from History obtained from: Patient, EMS - Additional information Additional information: Patient is an 86-year-old male with a history of atrial fibrillation, on warfarin, history of CHF presenting for evaluation of worsening shortness of breath for the past 1 week with cough and congestion starting 3 days ago.Patient has been compliant with his medications including Lasix and did take 160 mg this morning as EMS arrived.When EMS arrived they noted that he was 88% on room air which improved with a nonrebreather.Patient denies any chest pain. He denies worsening leg swelling, abdominal pain, vomiting or diarrhea. Review of Systems Constitutional: reports: Fever Nose: reports: Congestion Cardiac: denies: Chest pain / pressure Respiratory: reports: Dyspnea, Cough GI: denies: Abdominal Pain, Vomiting Neurologic: denies: Headache PD PAST MEDICAL HISTORY - Past Medical History Cardiovascular: Hypertension, High cholesterol, Coronary artery disease, Atrial fibrillation Respiratory: COPD, Pneumonia, Sleep apnea, CPAP use Endocrine/Autoimmune: None GI: None, Hiatal hernia : Renal insuffiency HEENT: None Musculoskeletal: Gout Derm: Other - Past Surgical History Past Surgical History: Yes General: Appendectomy, Bowel surgery Cardiovascular: Pacemaker - Present Medications Home Medications: Ambulatory Orders Medication Instructions Recorded Confirmed Magnesium Oxide [Mag Ox] 400 mg PO BID 03/22/14 03/22/14 Multivitamin [Multi-Day Vitamins] 1 cap DAILY 03/22/14 09/16/17 Tamsulosin HCl [Flomax] 0.4 mg PO DAILY 03/22/14 09/16/17 Warfarin [Coumadin] 2.5 mg PO DAILY 03/22/14 09/16/17 ALPRAZolam [Alprazolam] 0.25 mg PO BID PRN 09/16/17 09/16/17 Amiodarone [Pacerone] 100 mg PO DAILY 09/16/17 09/16/17 Aspirin [Aspirin EC] 81 mg PO DAILY 09/16/17 09/16/17 Furosemide 80 mg PO DAILY 09/16/17 09/16/17 Losartan Potassium 50 mg PO DAILY 09/16/17 09/16/17 Polyethylene Glycol 3350 8.5 - 17 gm PO DAILY 09/16/17 09/16/17 Simvastatin 10 mg PO QPM 09/16/17 09/16/17 Spironolactone 12.5 mg PO DAILY 09/16/17 09/16/17 carvediloL [Carvedilol] 12.5 mg PO BID 09/16/17 09/16/17 - Allergies Allergies/Adverse Reactions: Allergies Allergy/AdvReac Type Severity Reaction Status Date / Time No Known Drug Allergies Allergy Verified 08/28/17 12:25 - Social History Does the pt smoke?: No Smoking Status: Former smoker Does the pt drink ETOH?: No Does the pt have substance abuse?: No - POLST Patient has POLST: No PD ED PE NORMAL - General General: Alert and oriented X 3, No acute distress, Well developed/nourished - HEENT HEENT: Atraumatic - Neck Neck: Supple, no meningeal sign - Cardiac Cardiac: RRR - Respiratory Respiratory: Other (Mild tachypnea, coarse breath sounds) - Abdomen Abdomen: Normal bowel sounds, Soft, Non tender, Non distended - Extremities Extremities: No calf tenderness / cord. No: No edema (Mild edema bilaterally) Results - Vitals Vitals: Vital Signs - 24 hr 05/22/22 05/22/22 05/22/22 09:40 09:44 10:10 Temperature 37.9 C Heart Rate 82 74 70 Respiratory 34 H 24 20 Rate Blood Pressure 127/66 127/66 O2 Saturation 79 L 99 If not protocol 10 : Oxygen Flow, liters/minute 05/22/22 05/22/22 05/22/22 10:14 10:30 11:00 Temperature Heart Rate 77 69 61 Respiratory 29 H 22 21 Rate Blood Pressure 112/61 134/74 H 101/82 H O2 Saturation 94 92 94 If not protocol 10 10 10 : Oxygen Flow, liters/minute 05/22/22 05/22/22 05/22/22 11:30 12:00 12:30 Temperature Heart Rate 60 67 61 Respiratory 17 23 17 Rate Blood Pressure 101/88 H 128/76 128/76 O2 Saturation 98 95 92 If not protocol 10 10 10 : Oxygen Flow, liters/minute 05/22/22 05/22/22 05/22/22 13:00 13:30 14:00 Temperature Heart Rate 64 61 60 Respiratory 16 28 H 27 H Rate Blood Pressure 143/79 H 125/66 123/73 O2 Saturation 94 92 92 If not protocol 10 10 10 : Oxygen Flow, liters/minute 05/22/22 05/22/22 14:30 15:00 Temperature Heart Rate 69 61 Respiratory 25 H 21 Rate Blood Pressure 126/70 132/82 H O2 Saturation 93 91 L If not protocol 10 10 : Oxygen Flow, liters/minute Oxygen O2 Source Oxymizer Oxygen Flow Rate 10 - EKG (time done) 0944 Rate: Rate (enter#) (95) Rhythm: Paced Ischemia: No: ST elevation c/w ischemia - Labs Labs: Laboratory Tests 05/22/22 05/22/22 05/22/22 09:43 09:59 09:59 WBC 5.6 RBC 4.46 L Hgb 14.1 Hct 44.3 MCV 99.3 H MCH 31.6 H MCHC 31.8 L RDW 14.0 Plt Count 174 MPV 11.1 Neut # (Auto) 4.0 Lymph # (Auto) 0.7 L [place] # (Auto) 0.9 Eos # (Auto) 0.0 Baso # (Auto) 0.0 Absolute Nucleated RBC 0.00 Nucleated RBC % 0.0 PT 41.4 H INR 4.0 H Sodium Potassium Chloride Carbon Dioxide Anion Gap BUN Creatinine Estimated GFR (MDRD) Glucose Lactic Acid Calcium Total Bilirubin AST ALT Alkaline Phosphatase B-Natriuretic Peptide Total Protein Albumin Globulin Albumin/Globulin Ratio Lipase Nasal Adenovirus (PCR) NOT DETECTED Nasal B. parapertussis DNA (PCR) NOT DETECTED Nasal Coronavir 229E PCR NOT DETECTED Nasal Coronavir HKU1 PCR NOT DETECTED Nasal Coronavir NL63 PCR NOT DETECTED Nasal Coronavir OC43 PCR NOT DETECTED Nasal Enterovir/Rhinovir PCR NOT DETECTED Nasal Influenza B PCR NOT DETECTED Nasal Influenza A PCR NOT DETECTED Nasal Parainfluen 1 PCR NOT DETECTED Nasal Parainfluen 2 PCR NOT DETECTED Nasal Parainfluen 3 PCR NOT DETECTED Nasal Parainfluen 4 PCR NOT DETECTED Nasal RSV (PCR) NOT DETECTED Nasal B.pertussis DNA PCR NOT DETECTED Nasal C.pneumoniae (PCR) NOT DETECTED [place] Human Metapneumo PCR NOT DETECTED Nasal M.pneumoniae (PCR) NOT DETECTED Nasal SARS-CoV-2 (PCR) DETECTED A 05/22/22 05/22/22 05/22/22 09:59 09:59 09:59 WBC RBC Hgb Hct MCV MCH MCHC RDW Plt Count MPV Neut # (Auto) Lymph # (Auto) [place] # (Auto) Eos # (Auto) Baso # (Auto) Absolute Nucleated RBC Nucleated RBC % PT INR Sodium 141 Potassium 4.7 Chloride 105 Carbon Dioxide 28 Anion Gap 8.0 BUN 30 H Creatinine 1.2 Estimated GFR (MDRD) 57 L Glucose 94 Lactic Acid 1.4 Calcium 8.3 L Total Bilirubin 1.2 H AST 35 ALT 20 Alkaline Phosphatase 144 H B-Natriuretic Peptide 187 H Total Protein 7.0 Albumin 3.1 L Globulin 3.9 Albumin/Globulin Ratio 0.8 L Lipase 33 Nasal Adenovirus (PCR) Nasal B. parapertussis DNA (PCR) Nasal Coronavir 229E PCR Nasal Coronavir HKU1 PCR Nasal Coronavir NL63 PCR Nasal Coronavir OC43 PCR Nasal Enterovir/Rhinovir PCR Nasal Influenza B PCR Nasal Influenza A PCR Nasal Parainfluen 1 PCR Nasal Parainfluen 2 PCR Nasal Parainfluen 3 PCR Nasal Parainfluen 4 PCR Nasal RSV (PCR) Nasal B.pertussis DNA PCR Nasal C.pneumoniae (PCR) [place] Human Metapneumo PCR Nasal M.pneumoniae (PCR) Nasal SARS-CoV-2 (PCR) PD MEDICAL DECISION MAKING - ED course Complexity details: reviewed results, re-evaluated patient, d/w patient ED course: Patient presenting for evaluation of shortness of breath for the past 3 weeks. He has also had URI symptoms for the past several days. He is hypoxic upon arrival with room air sats of 79% with improvement on oximask. Patient is already taken his morning Lasix and does not appear particularly fluid overloaded.At this time I do not suspect superimposed bacterial infection.No chest pain to suggest ACS.Patient started on Decadron and will be admitted to the hospital service for further management of his hypoxia and COVID. 1511 - There is a [facility] bed available. Hospitalist will admit the patient. Departure - Departure Disposition: [facility] DC/Xfer Clinical Impression: Acute respiratory failure with hypoxia, Chronic a-fib, Chronic systolic heart failure, COVID-19 Condition: Stable Discharge Date/Time: 05/22/22 16:35
[2022-05-22 11:02] LABS: B. PARAPERTUSSIS- RESP PCR PAN NOT DETECTED; B. PERTUSSIS- RESP PCR PANEL NOT DETECTED; C. PNEUMONIAE- RESP PCR PANEL NOT DETECTED; CORONAVIRUS 229E-RESP PCR NOT DETECTED; CORONAVIRUS HKU1-RESP PCR NOT DETECTED; CORONAVIRUS NL63-RESP PCR NOT DETECTED; CORONAVIRUS OC43-RESP PCR NOT DETECTED; HUMAN METAPNEUMOVIRUS NOT DETECTED; INFLUENZA A- RESP PCR PANEL NOT DETECTED; INFLUENZA B - RESP PCR PANEL NOT DETECTED; M. PNEUMONIAE- RESP PCR PANEL NOT DETECTED; PARAINFLUENZA VIRUS 1 NOT DETECTED; PARAINFLUENZA VIRUS 2 NOT DETECTED; PARAINFLUENZA VIRUS 3 NOT DETECTED; PARAINFLUENZA VIRUS 4 NOT DETECTED; RHINOVIRUS/ENTEROVIRUS NOT DETECTED; RSV- RESP PCR PANEL NOT DETECTED; SARS-CoV-2 -RESP PCR PANEL DETECTED
--- NOTE | 2022-05-22 11:06 | XRAY Report ---
PROCEDURE: Chest 1 View X-Ray INDICATIONS: SOA/cough TECHNIQUE: One view of the chest was acquired. COMPARISON: None. FINDINGS: Cardiomegaly with diffuse interstitial and to a lesser degree airspace opacity, likely representing p ulmonary edema. Right chest wall single lead cardiac pacing device again noted. No pneumothorax or pl eural effusion. IMPRESSION: Cardiomegaly with moderate interstitial and alveolar edema. Reviewed by: Ian Youssef MD on 05/22/2022 11:04 AM [facility] Approved by: Ian Youssef MD on 05/22/2022 11:04 AM PST Station ID: [id number]
[2022-05-22] MEDS ORDERED: DEXAMETHASONE 10 MG/ML VIAL IVP STA (12:12)
[2022-05-22] MEDS ORDERED: ONDANSETRON 4 MG/2 ML VIAL IVP PRN (15:24)
[2022-05-22] MEDS ORDERED: SODIUM CHLORIDE FLUSH 0.9% 10 ML SYRINGE IVP PRN (15:24)
--- NOTE | 2022-05-22 15:29 | HISTORY & PHYSICAL EXAMINATION ---
Chief Complaint - Chief Complaint Chief Complaint: SOB History of Present Illness - Admitted From Admitted From:: ED - History Obtained From History obtained from: ED provider - History of Present Illness HPI Comment/Other: This is an 86-year-old white male with a history of A. fib and takes Coumadin, history of CHF who is felt more short of breath for the last 2 days as well as overall ill with a annoying cough for 2 days. Because of worsening shortness of breath he called an ambulance today and brought to the emergency room. He received a nebulizer along the way. In the ER his oxygen saturation was documented at 79% on room air. He received a nebulizer again and started on supplemental oxygen. He is needing up to 10 L/min on Oxymizer for supplemental oxygen. Labs showed he is COVID-positive. Chest x-ray reveals parenchymal opacities versus CHF. His INR is 4. He did receive IV Decadron 6 mg in the ED. He continues to be hypoxic and the ED provider has reached out to the hospitalist team to have it admitted for acute respiratory failure from a COVID- pneumonia. The patient seems too confused to give me details about his recent history and also too confused to make a decision about CODE STATUS. There is no POLST scanned into this EMR, therefore by default, he will be a Full Code. History - Past Medical History Cardiovascular: reports: Hypertension, High cholesterol, Coronary artery disease, Atrial fibrillation Respiratory: reports: COPD, Pneumonia, Sleep apnea, CPAP use Endocrine/Autoimmune: reports: None GI: reports: None, Hiatal hernia : reports: Renal insuffiency HEENT: reports: None Musculoskeletal: reports: Gout Derm: reports: Other MRSA Hx?: No - Past Surgical History General: reports: Appendectomy, Bowel surgery Cardiovascular: reports: Pacemaker - Family & Social History Family History Comment/Other: This cannot be obtained since the patient is too confused and in respiratory distress to give any history Living arrangement: At home Living Situation: Alone Social History Notes: He has a caregiver that comes to his house as well as a nurse that comes to his house. He is not . There are some children. His tobacco use and alcohol use are not known. - POLST Patient has POLST: No Meds/Allgy - Home Medications Home Medications: Ambulatory Orders Medication Instructions Recorded Confirmed Magnesium Oxide [Mag Ox] 400 mg PO BID 03/22/14 03/22/14 Multivitamin [Multi-Day Vitamins] 1 cap DAILY 03/22/14 09/16/17 Tamsulosin HCl [Flomax] 0.4 mg PO DAILY 03/22/14 09/16/17 Amiodarone [Pacerone] 100 mg PO DAILY 09/16/17 09/16/17 Furosemide 80 mg PO DAILY 09/16/17 09/16/17 Losartan Potassium 50 mg PO DAILY 09/16/17 09/16/17 Polyethylene Glycol 3350 8.5 - 17 gm PO DAILY 09/16/17 09/16/17 Simvastatin 10 mg PO QPM 09/16/17 09/16/17 Spironolactone 12.5 mg PO DAILY 09/16/17 09/16/17 carvediloL [Carvedilol] 6.25 mg PO BIDWM 09/16/17 09/16/17 Gabapentin [Neurontin] 400 mg PO TID 05/22/22 Warfarin [Coumadin] 1 mg PO MO 05/22/22 05/22/22 Warfarin [Coumadin] 2 mg PO DAILY 05/22/22 05/22/22 - Allergies Allergies/Adverse Reactions: Allergies Allergy/AdvReac Type Severity Reaction Status Date / Time No Known Drug Allergies Allergy Verified 08/28/17 12:25 Review of Systems - Respiratory Respiratory: reports: Cough, SOB at rest - All Other Systems All Other Systems: reports: Reviewed and negative (No further details can be obtained since the patient is confused and in respiratory distress, cannot give details about his recent history.) Exam - Vital Signs Vital Signs: Vital Signs x48h Temp Pulse Resp BP Pulse Ox O2 Flow Rate 05/22/22 15:00 61 21 132/82 H 91 L 10 05/22/22 14:30 69 25 H 126/70 93 10 05/22/22 14:00 60 27 H 123/73 92 10 05/22/22 13:30 61 28 H 125/66 92 10 05/22/22 13:00 64 16 143/79 H 94 10 05/22/22 12:30 61 17 128/76 92 10 05/22/22 12:00 67 23 128/76 95 10 05/22/22 11:30 60 17 101/88 H 98 10 05/22/22 11:00 61 21 101/82 H 94 10 05/22/22 10:30 69 22 134/74 H 92 10 05/22/22 10:14 77 29 H 112/61 94 10 05/22/22 10:10 70 20 05/22/22 09:44 74 24 127/66 99 10 05/22/22 09:40 37.9 C 82 34 H 127/66 79 L - Physical Exam General Appearance: positive: No acute distress (wearing O2 via oximizer) Eyes Bilateral: positive: Normal inspection ENT: positive: Other (Has a large sahu. Is hoarse when speaking, coughs frequently.) Neck: positive: Other (Cannot evaluate JVP due to large) Respiratory: positive: No respiratory distress (When on O2 and at rest), Rhonchi Cardiovascular: positive: Regular rate & rhythm Abdomen: positive: No distention Skin: positive: Warm, Dry Extremities: positive: Non-tender Neurologic/Psychiatric: positive: Other (Seems confused, is a poor hisrtorian. Non-focal motor exam.) Conclusion/Plan - Problem List (1) Acute respiratory failure with hypoxia Conclusion/Plan: Cause is likely to be his COVID-pneumonia but he also has underlying CHF with systolic heart failure and history of COPD. Plan: Continue supplemental O2. Treat the underlying causes. (2) Pneumonia due to COVID-19 virus Conclusion/Plan: Plan: Isolation suppl O2 Remdesivir Decadron 10 mg Day #1, then 6 mg iv daily. (3) History of COPD Conclusion/Plan: Plan: Will continue any home meds, once med list reconciled. We will continue with IV Decadron as for #2. Continue with bronchodilators via inhaler (4) Chronic a-fib Conclusion/Plan: He is 100% ventricular paced on his admission EKG, indicating his meds are preventing RVR. His INR is supratherapeutic. Plan: Continue cardiac meds Continue Coumadin, target INR is 2-3. Will follow INR daily while Inpt Telemetry for 24 hours, and if 100% paced, will stop telemetry (5) Chronic systolic heart failure Conclusion/Plan: His last echo done here was in 2018, 4 years ago, LVEF was 45%. Plan: Will obtain an Echo We will check another BNP to assure is not worsening and may need iv Lasix Continue with his home meds for his systolic heart failure (6) CHERRY on CPAP Conclusion/Plan: He told his RN he has nasal polyps and is a mouth breather as well as having sleep apnea and uses his CPAP evice. Plan: Will order home CPAP to use here - Lab Results Fish Bones: 05/23/22 04:17 05/23/22 04:17 - Diagnostic Imaging Results Diagnostic Imaging Results: positive: Final report reviewed
[2022-05-22] MEDS ORDERED: DEXAMETHASONE 4 MG/ML VIAL IVP ONE (16:30)
[2022-05-22] MEDS ORDERED: REMDESIVIR 100MG VIAL 200 MG in SODIUM CHLORIDE 0.9% 250 ML IV ONE ×2 (17:00→18:00)
[2022-05-22] MEDS: SODIUM CHLORIDE FLUSH 0.9% 10 ML SYRINGE IVP SCH (17:13)
[2022-05-23 04:51] LABS: BASOPHILS % (AUTO) 0.2 %; HCT - HEMATOCRIT 45.3 % (42.0-52.0); HGB - HEMOGLOBIN 14.7 g/dL (14.0-18.0); LYMPHOCYTES # (AUTO) 0.5 10^3/uL (1.5-3.5); LYMPHOCYTES % (AUTO) 9.9 %; MEAN CORPUSCULAR HEMOGLOBIN 31.5 pg (27.0-31.0); MEAN CORPUSCULAR HGB CONC 32.5 g/dL (32.0-36.0); MEAN CORPUSCULAR VOLUME 97.2 fL (80.0-94.0); MONOCYTES # (AUTO) 0.4 10^3/uL (0.0-1.0); MONOCYTES % (AUTO) 7.6 %; NEUTROPHILS # (AUTO) 4.3 10^3/uL (1.5-6.6); NEUTROPHILS % (AUTO) 81.5 %; PLT - PLATELET COUNT 192 10^3/uL (130-450); RED BLOOD COUNT 4.66 10^6/uL (4.70-6.10); RED CELL DISTRIBUTION WIDTH 13.9 % (12.0-15.0); WHITE BLOOD COUNT 5.3 x10^3/uL (4.8-10.8)
[2022-05-23] MEDS: SODIUM CHLORIDE FLUSH 0.9% 10 ML SYRINGE IVP SCH ×3 (04:54→17:47)
[2022-05-23 04:56] LABS: PT - PROTHROMBIN TIME 53.3 secs (9.9-12.6)
[2022-05-23 04:58] LABS: CALCIUM 8.3 mg/dL (8.5-10.3); CREATININE 1.3 mg/dL (0.6-1.2); MAGNESIUM 2.2 mg/dL (1.7-2.8); POTASSIUM 4.2 mmol/L (3.5-5.0)
[2022-05-23 05:03] LABS: INR 5.3 (0.8-1.2)
[2022-05-23] MEDS: DEXAMETHASONE 4 MG/ML VIAL IVP SCH (09:20)
[2022-05-23] MEDS: REMDESIVIR 100MG VIAL 100 MG in SODIUM CHLORIDE 0.9% 100ML 100 ML IV SCH (09:20)
--- NOTE | 2022-05-23 12:54 | PROVIDER PROGRESS NOTE ---
Assessment/Plan - Problem List (1) Acute respiratory failure with hypoxia Assessment/Plan: Cause is likely to be his COVID-pneumonia but he also has underlying CHF with systolic heart failure and history of COPD. Plan: Continue supplemental O2, target O2 sat 90%. Treat the underlying causes. (2) Pneumonia due to COVID-19 virus Conclusion/Plan: Plan: Isolation suppl O2 Remdesivir daily started yesterday / He got Decadron 10 mg on Day #1,now is on 6 mg iv daily. (3) History of COPD Conclusion/Plan: Plan: Will continue any home meds, once med list reconciled. We will continue with IV Decadron as in #2. Continue with bronchodilators via inhaler; his home med list is not yet reconciled (4) Chronic a-fib Conclusion/Plan: He is 100% ventricular paced on his admission EKG, indicating his meds are preventing RVR. His INR is supratherapeutic. Plan: Continue cardiac meds and it looks like he took or takes Amiodarone, his home med list is not yet reconciled Continue Coumadin, target INR is 2-3. Will follow INR daily while Inpt, hold if INR >3 Telemetry for 24 hours, and if 100% paced, will stop telemetry (5) Chronic systolic heart failure Conclusion/Plan: His last Echo done here 4 years ago, LVEF was 45%. Plan: Will obtain an Echo Continue with his home meds for his systolic heart failure, his home med list is not yet reconciled (6) CHERRY on CPAP Conclusion/Plan: He told his RN he has nasal polyps and is a mouth breather as well as having sleep apnea and uses his CPAP evice. Plan: We ordered home CPAP to use here and caregiver brought it in. (7) Poor memory Conclusion/Plan: He calls out for help, when we enter he does not remember what he needed. He is a poor historian and cannot give any details about himself. His baseline mental status is not known from our records Plan: Continue with supportive care - Current Meds Current Meds: Current Medications Generic Name Dose Route Start Last Admin Trade Name Freq PRN Reason Stop Dose Admin Dexamethasone 6 mg 05/23/22 09:00 05/23/22 09:20 Dexamethasone 4 Mg/Ml Vial IVP 06/01/22 00:01 6 mg DAILY SCOTT Administration Remdesivir 100 mg/ Sodium 100 mls @ 200 mls/hr 05/23/22 09:00 05/23/22 10:29 Chloride IV 05/26/22 09:29 Infused DAILY SCOTT Infusion Sodium Chloride 10 ml 05/22/22 15:24 05/22/22 18:30 Sodium Chloride Flush 0.9% 10 Ml Syringe IVP 10 ml PRN PRN Administration NEEDED PER PROVIDER ORDERS Sodium Chloride 10 ml 05/22/22 17:00 05/23/22 09:26 Sodium Chloride Flush 0.9% 10 Ml Syringe IVP 10 ml 0100,0900,1700 SCOTT Administration - Lab Result Fish Bone Diagrams: 05/23/22 04:17 05/23/22 04:17 - Additional Planning My Orders: My Active Orders 05/22/22 15:24 Activity Orders [RC] Q2HR IO [RC] IOSHIFT Incentive Spirometry - RT [RC] .tid Initiate Bowel Care Protocol [RC] .protocol Initiate Bronchodialator Ellie [RC] .PROTOCOL Initiate Line Care Protocol [RC] QSHIFT Initiate Personal Care Protoco [RC] .protocol Initiate Secretion Clearance P [RC] .PROTOCOL Oxygen Therapy [RC] .PRN Telemetry (24 Hour) [RC] Q4HR Vital Signs [RC] Q4HR Ondansetron Inj [Zofran Inj] 4 mg IVP Q6HR PRN Sodium Chloride Flush 0.9% [Normal Saline Flush 0.9%] 10 ml IVP PRN PRN Code Status [OTHERS] Routine Condition of Patient [OTHERS] Routine DVT Prophylaxis [OTHERS] Routine 05/22/22 15:26 Daily Weight [RC] 0600 05/22/22 15:39 Infection Precautions [RC] QSHIFT 05/22/22 Dinner Low Sodium Diet [DIET] 05/22/22 17:00 Sodium Chloride Flush 0.9% [Normal Saline Flush 0.9%] 10 ml IVP 0100,0900,1700 05/23/22 09:00 Remdesivir 100Mg Vial [Veklury] 100 mg Sodium Chloride 0.9% 100Ml [Normal Saline 0.9% 100Ml] 100 ml IV DAILY dexAMETHasone [Decadron] 6 mg IVP DAILY 05/24/22 05:00 BMP - BASIC METABOLIC PANEL [CHEM] DAILYLAB CBC - COMP BLD CT W/AUTO DIFF [HEME] DAILYLAB PT WITH INR [COAG] DAILYLAB 05/25/22 05:00 BMP - BASIC METABOLIC PANEL [CHEM] DAILYLAB CBC - COMP BLD CT W/AUTO DIFF [HEME] DAILYLAB PT WITH INR [COAG] DAILYLAB 05/26/22 05:00 BMP - BASIC METABOLIC PANEL [CHEM] DAILYLAB CBC - COMP BLD CT W/AUTO DIFF [HEME] DAILYLAB PT WITH INR [COAG] DAILYLAB 05/27/22 05:00 BMP - BASIC METABOLIC PANEL [CHEM] DAILYLAB CBC - COMP BLD CT W/AUTO DIFF [HEME] DAILYLAB PT WITH INR [COAG] DAILYLAB 05/28/22 05:00 BMP - BASIC METABOLIC PANEL [CHEM] DAILYLAB PT WITH INR [COAG] DAILYLAB Subjective - Subjective Patient Reports: Shortness of Breath (He has yelled out several times to come in and help him because he is short of breath. He does appear tachypneic then. He also has his suppl O2 off occaisionally, when complaining like this of SOB.) Objective Vital Signs: Vital Signs - 24 hr 05/22/22 05/22/22 05/22/22 13:00 13:30 14:00 Temperature Heart Rate 64 61 60 Heart Rate [ Brachial] Respiratory 16 28 H 27 H Rate Blood Pressure 143/79 H 125/66 123/73 Blood Pressure [Left Brachial artery] Blood Pressure [Right Brachial artery] O2 Saturation 94 92 92 If not protocol 10 10 10 : Oxygen Flow, liters/minute 05/22/22 05/22/22 05/22/22 14:30 15:00 16:00 Temperature Heart Rate 69 61 71 Heart Rate [ Brachial] Respiratory 25 H 21 19 Rate Blood Pressure 126/70 132/82 H 137/100 H Blood Pressure [Left Brachial artery] Blood Pressure [Right Brachial artery] O2 Saturation 93 91 L 92 If not protocol 10 10 10 : Oxygen Flow, liters/minute 05/22/22 05/22/22 05/22/22 16:56 17:00 18:18 Temperature 37.4 C Heart Rate Heart Rate [ 61 Brachial] Respiratory 32 H Rate Blood Pressure Blood Pressure [Left Brachial artery] Blood Pressure 132/69 H [Right Brachial artery] O2 Saturation 90 L If not protocol 10 10 14 : Oxygen Flow, liters/minute 05/22/22 05/23/22 05/23/22 21:00 00:54 04:04 Temperature 36.6 C 36.4 C L 36.9 C Heart Rate Heart Rate [ 61 64 64 Brachial] Respiratory 20 25 H 25 H Rate Blood Pressure Blood Pressure [Left Brachial artery] Blood Pressure 129/65 124/65 [Right Brachial artery] O2 Saturation 90 L 93 914 H If not protocol 14 15 15 : Oxygen Flow, liters/minute 05/23/22 05/23/22 05/23/22 06:38 07:00 07:47 Temperature 36.2 C L Heart Rate Heart Rate [ 61 Brachial] Respiratory 23 Rate Blood Pressure Blood Pressure 145/75 H 152/80 H [Left Brachial artery] Blood Pressure [Right Brachial artery] O2 Saturation 91 L If not protocol 10 10 : Oxygen Flow, liters/minute 05/23/22 11:41 Temperature 36.7 C Heart Rate Heart Rate [ 65 Brachial] Respiratory 24 Rate Blood Pressure Blood Pressure [Left Brachial artery] Blood Pressure 136/67 H [Right Brachial artery] O2 Saturation 90 L If not protocol 13 : Oxygen Flow, liters/minute Oxygen O2 Source Oxymask Oxygen Flow Rate 10 I&O (Last 24 Hrs): Intake and Output Totals x24h 05/21/22 05/22/22 05/23/22 23:59 23:59 23:59 Intake Total 300 400 Output Total 1350 200 Balance -1050 200 General: Alert, Mild distress HEENT: Other (Face is flushed, mucosa is dry, he is occasionally wearing his supplemental O2, does not like an Oxymizer, seems to be more comfortable with an oxime mask) Neck: Other (He has a long white sahu, cannot evaluate JVP) Neuro: Alert, Non Focal, Other (Intermittently confused, is a poor historian.) Cardiovascular: Regular rate Respiratory: Rhonchi Abdomen: Soft Extremities: No edema - Results Results: Laboratory Results WBC 5.3 x10^3/uL (4.8-10.8) 05/23/22 04:17 RBC 4.66 10^6/uL (4.70-6.10) L 05/23/22 04:17 Hgb 14.7 g/dL (14.0-18.0) 05/23/22 04:17 Hct 45.3 % (42.0-52.0) 05/23/22 04:17 MCV 97.2 fL (80.0-94.0) H 05/23/22 04:17 MCH 31.5 pg (27.0-31.0) H 05/23/22 04:17 MCHC 32.5 g/dL (32.0-36.0) 05/23/22 04:17 RDW 13.9 % (12.0-15.0) 05/23/22 04:17 Plt Count 192 10^3/uL (130-450) 05/23/22 04:17 MPV 11.0 fL (7.4-11.4) 05/23/22 04:17 Neut # (Auto) 4.3 10^3/uL (1.5-6.6) 05/23/22 04:17 Lymph # (Auto) 0.5 10^3/uL (1.5-3.5) L 05/23/22 04:17 [place] # (Auto) 0.4 10^3/uL (0.0-1.0) 05/23/22 04:17 Eos # (Auto) 0.0 10^3/uL (0.0-0.7) 05/23/22 04:17 Baso # (Auto) 0.0 10^3/uL (0.0-0.1) 05/23/22 04:17 Absolute Nucleated RBC 0.00 x10^3/uL 05/23/22 04:17 Nucleated RBC % 0.0 /100WBC 05/23/22 04:17 PT 53.3 secs (9.9-12.6) H 05/23/22 04:17 INR 5.3 (0.8-1.2) H* 05/23/22 04:17 Sodium 142 mmol/L (135-145) 05/23/22 04:17 Potassium 4.2 mmol/L (3.5-5.0) 05/23/22 04:17 Chloride 105 mmol/L (101-111) 05/23/22 04:17 Carbon Dioxide 25 mmol/L (21-32) 05/23/22 04:17 Anion Gap 12.0 (6-13) 05/23/22 04:17 BUN 34 mg/dL (6-20) H 05/23/22 04:17 Creatinine 1.3 mg/dL (0.6-1.2) H 05/23/22 04:17 Estimated GFR (MDRD) 52 (>89) L 05/23/22 04:17 Glucose 121 mg/dL (70-100) H 05/23/22 04:17 Lactic Acid 1.4 mmol/L (0.5-2.2) 05/22/22 09:59 Calcium 8.3 mg/dL (8.5-10.3) L 05/23/22 04:17 Magnesium 2.2 mg/dL (1.7-2.8) 05/23/22 04:17 Total Bilirubin 1.2 mg/dL (0.2-1.0) H 05/22/22 09:59 AST 35 IU/L (10-42) 05/22/22 09:59 ALT 20 IU/L (10-60) 05/22/22 09:59 Alkaline Phosphatase 144 IU/L (42-121) H 05/22/22 09:59 B-Natriuretic Peptide 310 pg/mL (5-100) H 05/23/22 04:17 Total Protein 7.0 g/dL (6.7-8.2) 05/22/22 09:59 Albumin 3.1 g/dL (3.2-5.5) L 05/22/22 09:59 Globulin 3.9 g/dL (2.1-4.2) 05/22/22 09:59 Albumin/Globulin Ratio 0.8 (1.0-2.2) L 05/22/22 09:59 Lipase 33 U/L (22-51) 05/22/22 09:59 Nasal Adenovirus (PCR) NOT DETECTED 05/22/22 09:43 Nasal B. parapertussis DNA (PCR) NOT DETECTED 05/22/22 09:43 Nasal Coronavir 229E PCR NOT DETECTED 05/22/22 09:43 Nasal Coronavir HKU1 PCR NOT DETECTED 05/22/22 09:43 Nasal Coronavir NL63 PCR NOT DETECTED 05/22/22 09:43 Nasal Coronavir OC43 PCR NOT DETECTED 05/22/22 09:43 Nasal Enterovir/Rhinovir PCR NOT DETECTED 05/22/22 09:43 Nasal Influenza B PCR NOT DETECTED 05/22/22 09:43 Nasal Influenza A PCR NOT DETECTED 05/22/22 09:43 Nasal Parainfluen 1 PCR NOT DETECTED 05/22/22 09:43 Nasal Parainfluen 2 PCR NOT DETECTED 05/22/22 09:43 Nasal Parainfluen 3 PCR NOT DETECTED 05/22/22 09:43 Nasal Parainfluen 4 PCR NOT DETECTED 05/22/22 09:43 Nasal RSV (PCR) NOT DETECTED 05/22/22 09:43 Nasal B.pertussis DNA PCR NOT DETECTED 05/22/22 09:43 Nasal C.pneumoniae (PCR) NOT DETECTED 05/22/22 09:43 [place] Human Metapneumo PCR NOT DETECTED 05/22/22 09:43 Nasal M.pneumoniae (PCR) NOT DETECTED 05/22/22 09:43 Nasal SARS-CoV-2 (PCR) DETECTED A 05/22/22 09:43
--- NOTE | 2022-05-23 13:12 | PHARMACY PROGRESS NOTE ---
- Best Possible Medication History Admit Date and Time: 05/22/22 1524 Processed by: Pharmacy Medication History completed: Yes Patient Interview: Pt unable to participate Secondary Source(s): Caregiver (SPOKE WITH TIMUR, WHO VERIFIED MEDS PT TAKES AT HOME. PER TIMUR, PT HAS RN, GARLAND, WHO COMES ON SAT FOR THE PAST 5 YEARS. RN'S NUMBER: [phone]) As the person ultimately responsible for medication therapy, providers are able to order a medication from an existing home medication list in [facility] via the "Reconcile Routine" prior to Confirmation of that medication by peer support specialist. Such practice is discouraged except when the physician, in their clinical judgment, deems that a medical need exists for a medication without regard to previous use.
[2022-05-23] MEDS ORDERED: NYSTATIN POWDER 15 GM TOP PRN (17:35)
[2022-05-23] MEDS: AMIODARONE 200 MG TABLET PO SCH (18:36)
[2022-05-23] MEDS: carvediloL 12.5 MG TABLET PO SCH (21:04)
[2022-05-23] MEDS: ATORVASTATIN 10 MG TABLET PO SCH (21:04)
[2022-05-23] MEDS: GABAPENTIN 400 MG CAPSULE PO SCH (21:04)
[2022-05-24 04:58] LABS: BASOPHILS % (AUTO) 0.1 %; HCT - HEMATOCRIT 49.2 % (42.0-52.0); HGB - HEMOGLOBIN 15.8 g/dL (14.0-18.0); LYMPHOCYTES # (AUTO) 0.5 10^3/uL (1.5-3.5); LYMPHOCYTES % (AUTO) 4.8 %; MEAN CORPUSCULAR HEMOGLOBIN 31.5 pg (27.0-31.0); MEAN CORPUSCULAR HGB CONC 32.1 g/dL (32.0-36.0); MEAN CORPUSCULAR VOLUME 98.2 fL (80.0-94.0); MEAN PLATELET VOLUME 10.7 fL (7.4-11.4); MONOCYTES # (AUTO) 0.8 10^3/uL (0.0-1.0); MONOCYTES % (AUTO) 8.7 %; PLT - PLATELET COUNT 235 10^3/uL (130-450); RED BLOOD COUNT 5.01 10^6/uL (4.70-6.10); RED CELL DISTRIBUTION WIDTH 13.9 % (12.0-15.0); WHITE BLOOD COUNT 9.4 x10^3/uL (4.8-10.8)
[2022-05-24 05:12] LABS: CALCIUM 8.9 mg/dL (8.5-10.3); CREATININE 1.2 mg/dL (0.6-1.2); POTASSIUM 4.3 mmol/L (3.5-5.0)
[2022-05-24 05:17] LABS: PT - PROTHROMBIN TIME 57.2 secs (9.9-12.6)
[2022-05-24 05:34] LABS: INR 5.7 (0.8-1.2)
[2022-05-24] MEDS: GABAPENTIN 400 MG CAPSULE PO SCH ×3 (06:27→21:31)
[2022-05-24] MEDS: SODIUM CHLORIDE FLUSH 0.9% 10 ML SYRINGE IVP SCH ×4 (06:32→23:55)
[2022-05-24] MEDS: SPIRONOLACTONE 25 MG TABLET PO SCH (08:34)
[2022-05-24] MEDS: TAMSULOSIN 0.4 MG CAPSULE PO SCH (08:34)
[2022-05-24] MEDS: MULTIVITAMIN TABLET PO SCH (08:34)
[2022-05-24] MEDS: MAGNESIUM OXIDE 400 MG TABLET PO SCH (08:34)
[2022-05-24] MEDS: carvediloL 12.5 MG TABLET PO SCH ×2 (08:36→21:31)
[2022-05-24] MEDS: CHOLECALCIFEROL 25 MCG TABLET PO SCH (08:37)
[2022-05-24] MEDS: AMIODARONE 200 MG TABLET PO SCH (08:39)
[2022-05-24] MEDS ORDERED: FUROSEMIDE 40 MG TABLET PO SCH (09:00)
[2022-05-24] MEDS ORDERED: WARFARIN 1 MG TABLET PO SCH (09:00)
[2022-05-24] MEDS: DEXAMETHASONE 4 MG/ML VIAL IVP SCH (09:08)
[2022-05-24] MEDS: REMDESIVIR 100MG VIAL 100 MG in SODIUM CHLORIDE 0.9% 100ML 100 ML IV SCH (09:09)
[2022-05-24] MEDS: WARFARIN 1 MG TABLET PO SCH (10:46)
--- NOTE | 2022-05-24 18:17 | PROVIDER PROGRESS NOTE ---
Assessment/Plan - Problem List (1) Acute respiratory failure with hypoxia Assessment/Plan: Cause is felt to be his COVID-pneumonia but he also has underlying CHF with systolic heart failure and history of COPD. Plan: Continue supplemental O2, target O2 sat 90%. Treat the underlying causes. (2) Pneumonia due to COVID-19 virus Conclusion/Plan: Plan: Isolation suppl O2 Remdesivir daily for 5 days, was started 12/ He got Decadron 10 mg on Day #1,now is on 6 mg iv daily. (3) History of COPD Conclusion/Plan: Plan: Will continue any home meds We will continue with IV Decadron as in #2. Continue with bronchodilators via inhaler (4) Chronic a-fib Conclusion/Plan: He is 100% ventricular paced on his admission EKG, indicating his meds are preventing RVR. His INR has been supratherapeutic. Plan: Continue cardiac meds and it looks like he took or takes Amiodarone, his home med list is not yet reconciled Continue Coumadin, target INR is 2-3. Will follow INR daily while Inpt, hold if INR >3 Telemetry for 24 hours, and if 100% paced, will stop telemetry (5) Chronic systolic heart failure Conclusion/Plan: His last Echo done here 4 years ago, LVEF was 45%. Plan: Will consider an Echo if resp status no better with management as in #1, 2 and 3 Continue with his home meds for his systolic heart failure, his home med list is not yet reconciled (6) CHERRY on CPAP Conclusion/Plan: He told his RN he has nasal polyps and is a mouth breather as well as having sleep apnea and uses his CPAP evice. Plan: We ordered his home CPAP to use here and caregiver brought it in. (7) Poor memory Conclusion/Plan: He calls out for help, when we enter he does not remember what he needed. He is a poor historian and cannot give any details about himself. His baseline mental status is not known from our records Plan: Continue with supportive care - Current Meds Current Meds: Current Medications Generic Name Dose Route Start Last Admin Trade Name Freq PRN Reason Stop Dose Admin Amiodarone HCl 100 mg 05/23/22 17:36 05/24/22 08:39 Amiodarone 200 Mg Tablet PO 100 mg DAILY SCOTT Administration Atorvastatin Calcium 10 mg 05/23/22 21:00 05/23/22 21:04 Atorvastatin 10 Mg Tablet PO 10 mg QPM SCOTT Administration Carvedilol 6.25 mg 05/23/22 21:00 05/24/22 08:36 Carvedilol 12.5 Mg Tablet PO 6.25 mg BID SCOTT Administration Cholecalciferol 50 mcg 05/24/22 09:00 05/24/22 08:37 Cholecalciferol 25 Mcg Tablet PO 50 mcg DAILY SCOTT Administration Dexamethasone 6 mg 05/23/22 09:00 05/24/22 09:08 Dexamethasone 4 Mg/Ml Vial IVP 06/01/22 00:01 6 mg DAILY SCOTT Administration Furosemide 80 mg 05/24/22 09:00 05/24/22 08:35 Furosemide 40 Mg Tablet PO 80 mg DAILY SCOTT Administration Gabapentin 400 mg 05/23/22 22:00 05/24/22 13:21 Gabapentin 400 Mg Capsule PO 400 mg TID SCOTT Administration Remdesivir 100 mg/ Sodium 100 mls @ 200 mls/hr 05/23/22 09:00 05/24/22 10:27 Chloride IV 05/26/22 09:29 Infused DAILY SCOTT Infusion Magnesium Oxide 400 mg 05/24/22 09:00 05/24/22 08:34 Magnesium Oxide 400 Mg Tablet PO 400 mg DAILY SCOTT Administration Multivitamins 1 tab 05/24/22 08:00 05/24/22 08:34 Multivitamin Tablet PO 1 tab DAILYWM SCOTT Administration Sodium Chloride 10 ml 05/22/22 15:24 05/22/22 18:30 Sodium Chloride Flush 0.9% 10 Ml Syringe IVP 10 ml PRN PRN Administration NEEDED PER PROVIDER ORDERS Sodium Chloride 10 ml 05/22/22 17:00 05/24/22 17:28 Sodium Chloride Flush 0.9% 10 Ml Syringe IVP 10 ml 0100,0900,1700 SCOTT Administration Spironolactone 12.5 mg 05/24/22 09:00 05/24/22 08:34 Spironolactone 25 Mg Tablet PO 12.5 mg DAILY SCOTT Administration Tamsulosin HCl 0.4 mg 05/24/22 09:00 05/24/22 08:34 Tamsulosin 0.4 Mg Capsule PO 0.4 mg DAILY SCOTT Administration Warfarin Sodium 2 mg 05/24/22 10:41 05/24/22 10:46 Warfarin 1 Mg Tablet PO Not Given 1400 SCOTT - Lab Result Fish Bone Diagrams: 05/26/22 05:52 05/26/22 05:52 - Additional Planning My Orders: My Active Orders 05/23/22 17:35 Nystatin [Nystop] 1 applic TOP BID PRN 05/23/22 17:36 Amiodarone [Pacerone] 100 mg PO DAILY 05/23/22 21:00 Atorvastatin [Lipitor] 10 mg PO QPM carvediloL [Coreg] 6.25 mg PO BID 05/23/22 22:00 Gabapentin [Neurontin] 400 mg PO TID 05/24/22 08:00 Multivitamin [Theragran] 1 tab PO DAILYWM 05/24/22 09:00 Cholecalciferol [Vitamin D3] 50 mcg PO DAILY Furosemide [Lasix] 80 mg PO DAILY Magnesium Oxide [Mag Ox] 400 mg PO DAILY Spironolactone [Aldactone] 12.5 mg PO DAILY Tamsulosin [Flomax] 0.4 mg PO DAILY 05/24/22 10:41 Warfarin [Coumadin] 2 mg PO 1400 05/25/22 05:00 BMP - BASIC METABOLIC PANEL [CHEM] DAILYLAB CBC - COMP BLD CT W/AUTO DIFF [HEME] DAILYLAB PT WITH INR [COAG] DAILYLAB 05/26/22 05:00 BMP - BASIC METABOLIC PANEL [CHEM] DAILYLAB CBC - COMP BLD CT W/AUTO DIFF [HEME] DAILYLAB PT WITH INR [COAG] DAILYLAB 05/27/22 05:00 BMP - BASIC METABOLIC PANEL [CHEM] DAILYLAB CBC - COMP BLD CT W/AUTO DIFF [HEME] DAILYLAB PT WITH INR [COAG] DAILYLAB 05/28/22 05:00 BMP - BASIC METABOLIC PANEL [CHEM] DAILYLAB PT WITH INR [COAG] DAILYLAB 05/28/22 14:00 Warfarin [Coumadin] 1 mg PO MO Subjective - Subjective Nursing Reports: Confused (CAlling out when he cannot breath, is found with suppl O2 off) Objective Vital Signs: Vital Signs - 24 hr 05/23/22 05/23/22 05/24/22 19:16 23:54 01:42 Temperature 36.4 C L Heart Rate [ 61 Brachial] Respiratory 24 24 Rate Blood Pressure 122/63 [Right Brachial artery] O2 Saturation 88 L 95 If not protocol 3 15 15 : Oxygen Flow, liters/minute 05/24/22 05/24/22 05/24/22 06:58 07:50 17:27 Temperature 37.1 C 37.0 C Heart Rate [ 80 57 L Brachial] Respiratory 22 24 Rate Blood Pressure 154/85 H 102/53 L [Right Brachial artery] O2 Saturation 90 L 88 L If not protocol 15 15 15 : Oxygen Flow, liters/minute Oxygen O2 Source Oxymask Oxygen Flow Rate 10 I&O (Last 24 Hrs): Intake and Output Totals x24h 05/22/22 05/23/22 05/24/22 23:59 23:59 23:59 Intake Total 300 1205 1940 Output Total 1350 300 700 Balance -6020 724 4641 General: Alert, Moderate distress (resp distress and is confused) HEENT: Mucous membr. moist/pink, Other (Disheveled) Neck: Other (CAnnot eval JVP, he has a long sahu) Neuro: Alert, Disoriented, Non Focal Respiratory: Rhonchi Abdomen: Soft Extremities: No clubbing, No edema - Results Results: Laboratory Results WBC 9.4 x10^3/uL (4.8-10.8) 05/24/22 04:43 RBC 5.01 10^6/uL (4.70-6.10) 05/24/22 04:43 Hgb 15.8 g/dL (14.0-18.0) 05/24/22 04:43 Hct 49.2 % (42.0-52.0) 05/24/22 04:43 MCV 98.2 fL (80.0-94.0) H 05/24/22 04:43 MCH 31.5 pg (27.0-31.0) H 05/24/22 04:43 MCHC 32.1 g/dL (32.0-36.0) 05/24/22 04:43 RDW 13.9 % (12.0-15.0) 05/24/22 04:43 Plt Count 235 10^3/uL (130-450) 05/24/22 04:43 MPV 10.7 fL (7.4-11.4) 05/24/22 04:43 Neut # (Auto) 8.0 10^3/uL (1.5-6.6) H 05/24/22 04:43 Lymph # (Auto) 0.5 10^3/uL (1.5-3.5) L 05/24/22 04:43 [place] # (Auto) 0.8 10^3/uL (0.0-1.0) 05/24/22 04:43 Eos # (Auto) 0.0 10^3/uL (0.0-0.7) 05/24/22 04:43 Baso # (Auto) 0.0 10^3/uL (0.0-0.1) 05/24/22 04:43 Absolute Nucleated RBC 0.00 x10^3/uL 05/24/22 04:43 Nucleated RBC % 0.0 /100WBC 05/24/22 04:43 PT 57.2 secs (9.9-12.6) H 05/24/22 04:43 INR 5.7 (0.8-1.2) H* 05/24/22 04:43 Sodium 147 mmol/L (135-145) H 05/24/22 04:43 Potassium 4.3 mmol/L (3.5-5.0) 05/24/22 04:43 Chloride 109 mmol/L (101-111) 05/24/22 04:43 Carbon Dioxide 26 mmol/L (21-32) 05/24/22 04:43 Anion Gap 12.0 (6-13) 05/24/22 04:43 BUN 43 mg/dL (6-20) H 05/24/22 04:43 Creatinine 1.2 mg/dL (0.6-1.2) 05/24/22 04:43 Estimated GFR (MDRD) 57 (>89) L 05/24/22 04:43 Glucose 118 mg/dL (70-100) H 05/24/22 04:43 Lactic Acid 1.4 mmol/L (0.5-2.2) 05/22/22 09:59 Calcium 8.9 mg/dL (8.5-10.3) 05/24/22 04:43 Magnesium 2.2 mg/dL (1.7-2.8) 05/23/22 04:17 Total Bilirubin 1.2 mg/dL (0.2-1.0) H 05/22/22 09:59 AST 35 IU/L (10-42) 05/22/22 09:59 ALT 20 IU/L (10-60) 05/22/22 09:59 Alkaline Phosphatase 144 IU/L (42-121) H 05/22/22 09:59 B-Natriuretic Peptide 310 pg/mL (5-100) H 05/23/22 04:17 Total Protein 7.0 g/dL (6.7-8.2) 05/22/22 09:59 Albumin 3.1 g/dL (3.2-5.5) L 05/22/22 09:59 Globulin 3.9 g/dL (2.1-4.2) 05/22/22 09:59 Albumin/Globulin Ratio 0.8 (1.0-2.2) L 05/22/22 09:59 Lipase 33 U/L (22-51) 05/22/22 09:59 Vitamin D 25-Hydroxy 37.8 ng/mL (30.0-100.0) 05/23/22 15:40 Nasal Adenovirus (PCR) NOT DETECTED 05/22/22 09:43 Nasal B. parapertussis DNA (PCR) NOT DETECTED 05/22/22 09:43 Nasal Coronavir 229E PCR NOT DETECTED 05/22/22 09:43 Nasal Coronavir HKU1 PCR NOT DETECTED 05/22/22 09:43 Nasal Coronavir NL63 PCR NOT DETECTED 05/22/22 09:43 Nasal Coronavir OC43 PCR NOT DETECTED 05/22/22 09:43 Nasal Enterovir/Rhinovir PCR NOT DETECTED 05/22/22 09:43 Nasal Influenza B PCR NOT DETECTED 05/22/22 09:43 Nasal Influenza A PCR NOT DETECTED 05/22/22 09:43 Nasal Parainfluen 1 PCR NOT DETECTED 05/22/22 09:43 Nasal Parainfluen 2 PCR NOT DETECTED 05/22/22 09:43 Nasal Parainfluen 3 PCR NOT DETECTED 05/22/22 09:43 Nasal Parainfluen 4 PCR NOT DETECTED 05/22/22 09:43 Nasal RSV (PCR) NOT DETECTED 05/22/22 09:43 Nasal B.pertussis DNA PCR NOT DETECTED 05/22/22 09:43 Nasal C.pneumoniae (PCR) NOT DETECTED 05/22/22 09:43 [place] Human Metapneumo PCR NOT DETECTED 05/22/22 09:43 Nasal M.pneumoniae (PCR) NOT DETECTED 05/22/22 09:43 Nasal SARS-CoV-2 (PCR) DETECTED A 05/22/22 09:43
[2022-05-24] MEDS: ATORVASTATIN 10 MG TABLET PO SCH (21:31)
[2022-05-25 05:01] LABS: BASOPHILS % (AUTO) 0.1 %; HCT - HEMATOCRIT 44.6 % (42.0-52.0); HGB - HEMOGLOBIN 14.5 g/dL (14.0-18.0); LYMPHOCYTES # (AUTO) 0.5 10^3/uL (1.5-3.5); LYMPHOCYTES % (AUTO) 5.3 %; MEAN CORPUSCULAR HEMOGLOBIN 31.6 pg (27.0-31.0); MEAN CORPUSCULAR HGB CONC 32.5 g/dL (32.0-36.0); MEAN CORPUSCULAR VOLUME 97.2 fL (80.0-94.0); MEAN PLATELET VOLUME 10.9 fL (7.4-11.4); MONOCYTES # (AUTO) 0.9 10^3/uL (0.0-1.0); NEUTROPHILS # (AUTO) 7.7 10^3/uL (1.5-6.6); NEUTROPHILS % (AUTO) 83.8 %; PLT - PLATELET COUNT 218 10^3/uL (130-450); RED BLOOD COUNT 4.59 10^6/uL (4.70-6.10); WHITE BLOOD COUNT 9.2 x10^3/uL (4.8-10.8)
[2022-05-25 05:10] LABS: CALCIUM 8.3 mg/dL (8.5-10.3); CREATININE 1.3 mg/dL (0.6-1.2); POTASSIUM 4.1 mmol/L (3.5-5.0)
[2022-05-25 05:14] LABS: PT - PROTHROMBIN TIME 57.6 secs (9.9-12.6)
[2022-05-25 05:22] LABS: INR 5.8 (0.8-1.2)
--- NOTE | 2022-05-25 08:02 | PROVIDER PROGRESS NOTE ---
Assessment/Plan - Problem List (1) Acute respiratory failure with hypoxia Assessment/Plan: Cause is likely to be his COVID-pneumonia but he also has underlying CHF with systolic heart failure and history of COPD. Plan: Continue supplemental O2, target O2 sat 90%. Continue to treat the underlying causes. (2) Pneumonia due to COVID-19 virus Conclusion/Plan: Plan: Isolation suppl O2 Remdesivir daily started 12/, a 5 day course is planned. He got Decadron 10 mg on Day #1, now is on 6 mg iv daily. (3) History of COPD Conclusion/Plan: Plan: Will continue any home meds We will continue with IV Decadron as in #2. Continue with bronchodilators via inhaler (4) Chronic a-fib Conclusion/Plan: He is 100% ventricular paced on his admission EKG, indicating his meds are preventing RVR. His INR has been supratherapeutic. Plan: Continue cardiac meds and it looks like he took or takes Amiodarone, his home med list is not yet reconciled Continue Coumadin,holding it if INR high, target INR is 2-3. Will follow INR daily while Inpt, hold if INR >3 Telemetry for 24 hours, and if 100% paced, will stop telemetry (5) Chronic systolic heart failure Conclusion/Plan: His last Echo done here 4 years ago, LVEF was 45%. Plan: Will probably not need an Echo, since he is improving with our management as in #1,2,&3 Continue with his home meds for his systolic heart failure (6) CHERRY on CPAP Conclusion/Plan: He told his RN he has nasal polyps and is a mouth breather as well as having sleep apnea and uses his CPAP evice. Plan: We ordered his home CPAP to use here and caregiver brought it in. (7) Poor memory Conclusion/Plan: He called out for help, when we entered he did not remember what he needed. He is a poor historian and cannot give any details about himself. His baseline mental status is not known from our EMR records. He has a caregiver and an RN come to his house most days of the week. Plan: Continue with supportive care - Current Meds Current Meds: Current Medications Generic Name Dose Route Start Last Admin Trade Name Freq PRN Reason Stop Dose Admin Amiodarone HCl 100 mg 05/23/22 17:36 05/24/22 08:39 Amiodarone 200 Mg Tablet PO 100 mg DAILY SCOTT Administration Atorvastatin Calcium 10 mg 05/23/22 21:00 05/24/22 21:31 Atorvastatin 10 Mg Tablet PO 10 mg QPM SCOTT Administration Carvedilol 6.25 mg 05/23/22 21:00 05/24/22 21:31 Carvedilol 12.5 Mg Tablet PO 6.25 mg BID SCOTT Administration Cholecalciferol 50 mcg 05/24/22 09:00 05/24/22 08:37 Cholecalciferol 25 Mcg Tablet PO 50 mcg DAILY SCOTT Administration Dexamethasone 6 mg 05/23/22 09:00 05/24/22 09:08 Dexamethasone 4 Mg/Ml Vial IVP 06/01/22 00:01 6 mg DAILY SCOTT Administration Gabapentin 400 mg 05/23/22 22:00 05/24/22 21:31 Gabapentin 400 Mg Capsule PO 400 mg TID SCOTT Administration Remdesivir 100 mg/ Sodium 100 mls @ 200 mls/hr 05/23/22 09:00 05/24/22 10:27 Chloride IV 05/26/22 09:29 Infused DAILY SCOTT Infusion Magnesium Oxide 400 mg 05/24/22 09:00 05/24/22 08:34 Magnesium Oxide 400 Mg Tablet PO 400 mg DAILY SCOTT Administration Multivitamins 1 tab 05/24/22 08:00 05/24/22 08:34 Multivitamin Tablet PO 1 tab DAILYWM SCOTT Administration Sodium Chloride 10 ml 05/22/22 15:24 05/22/22 18:30 Sodium Chloride Flush 0.9% 10 Ml Syringe IVP 10 ml PRN PRN Administration NEEDED PER PROVIDER ORDERS Sodium Chloride 10 ml 05/22/22 17:00 05/24/22 23:55 Sodium Chloride Flush 0.9% 10 Ml Syringe IVP 10 ml 0100,0900,1700 SCOTT Administration Spironolactone 12.5 mg 05/24/22 09:00 05/24/22 08:34 Spironolactone 25 Mg Tablet PO 12.5 mg DAILY SCOTT Administration Tamsulosin HCl 0.4 mg 05/24/22 09:00 05/24/22 08:34 Tamsulosin 0.4 Mg Capsule PO 0.4 mg DAILY SCOTT Administration Warfarin Sodium 2 mg 05/24/22 10:41 05/24/22 10:46 Warfarin 1 Mg Tablet PO Not Given 1400 SCOTT - Lab Result Fish Bone Diagrams: 05/26/22 05:52 05/26/22 05:52 - Additional Planning My Orders: My Active Orders 05/24/22 08:00 Multivitamin [Theragran] 1 tab PO DAILYWM 05/24/22 09:00 Cholecalciferol [Vitamin D3] 50 mcg PO DAILY Magnesium Oxide [Mag Ox] 400 mg PO DAILY Spironolactone [Aldactone] 12.5 mg PO DAILY Tamsulosin [Flomax] 0.4 mg PO DAILY 05/24/22 10:41 Warfarin [Coumadin] 2 mg PO 1400 05/25/22 09:00 polyethylene glycoL 3350 [Miralax] 17 gm PO DAILY 05/26/22 05:00 BMP - BASIC METABOLIC PANEL [CHEM] DAILYLAB CBC - COMP BLD CT W/AUTO DIFF [HEME] DAILYLAB PT WITH INR [COAG] DAILYLAB 05/27/22 05:00 BMP - BASIC METABOLIC PANEL [CHEM] DAILYLAB CBC - COMP BLD CT W/AUTO DIFF [HEME] DAILYLAB PT WITH INR [COAG] DAILYLAB 05/28/22 05:00 BMP - BASIC METABOLIC PANEL [CHEM] DAILYLAB PT WITH INR [COAG] DAILYLAB 05/28/22 14:00 Warfarin [Coumadin] 1 mg PO MO Subjective - Subjective Patient Reports: Feeling Better (we assume this, because he is less confused. less calling out, more compliant with keeping his suppl O2 on.) Objective Vital Signs: Vital Signs - 24 hr 05/24/22 05/24/22 05/24/22 17:27 19:15 23:41 Temperature 37.0 C 36.4 C L Heart Rate [ 57 L 59 L Brachial] Respiratory 24 25 H Rate Blood Pressure [Left Brachial artery] Blood Pressure 102/53 L 111/56 L [Right Brachial artery] O2 Saturation 88 L 89 L If not protocol 15 15 15 : Oxygen Flow, liters/minute 05/24/22 05/25/22 23:54 06:00 Temperature 36.5 C Heart Rate [ 121 H 50 L Brachial] Respiratory 24 24 Rate Blood Pressure 116/74 [Left Brachial artery] Blood Pressure [Right Brachial artery] O2 Saturation 89 L 85 L If not protocol 15 15 : Oxygen Flow, liters/minute Oxygen O2 Source CPAP Oxygen Flow Rate 10 I&O (Last 24 Hrs): Intake and Output Totals x24h 05/23/22 05/24/22 05/25/22 23:59 23:59 23:59 Intake Total 1205 2480 100 Output Total 300 700 Balance 905 1780 100 General: Alert, No acute distress HEENT: Mucous membr. moist/pink Neck: Supple, Other (has a long sahu and cannot eval JVP) Neuro: Alert, Disoriented Cardiovascular: Regular rate Respiratory: No respiratory distress (with suppl O2 on) Abdomen: Soft Extremities: No clubbing, No edema - Results Results: Laboratory Results WBC 9.2 x10^3/uL (4.8-10.8) 05/25/22 04:43 RBC 4.59 10^6/uL (4.70-6.10) L 05/25/22 04:43 Hgb 14.5 g/dL (14.0-18.0) 05/25/22 04:43 Hct 44.6 % (42.0-52.0) 05/25/22 04:43 MCV 97.2 fL (80.0-94.0) H 05/25/22 04:43 MCH 31.6 pg (27.0-31.0) H 05/25/22 04:43 MCHC 32.5 g/dL (32.0-36.0) 05/25/22 04:43 RDW 14.0 % (12.0-15.0) 05/25/22 04:43 Plt Count 218 10^3/uL (130-450) 05/25/22 04:43 MPV 10.9 fL (7.4-11.4) 05/25/22 04:43 Neut # (Auto) 7.7 10^3/uL (1.5-6.6) H 05/25/22 04:43 Lymph # (Auto) 0.5 10^3/uL (1.5-3.5) L 05/25/22 04:43 [place] # (Auto) 0.9 10^3/uL (0.0-1.0) 05/25/22 04:43 Eos # (Auto) 0.0 10^3/uL (0.0-0.7) 05/25/22 04:43 Baso # (Auto) 0.0 10^3/uL (0.0-0.1) 05/25/22 04:43 Absolute Nucleated RBC 0.00 x10^3/uL 05/25/22 04:43 Nucleated RBC % 0.0 /100WBC 05/25/22 04:43 PT 57.6 secs (9.9-12.6) H 05/25/22 04:43 INR 5.8 (0.8-1.2) H* 05/25/22 04:43 Sodium 141 mmol/L (135-145) 05/25/22 04:43 Potassium 4.1 mmol/L (3.5-5.0) 05/25/22 04:43 Chloride 105 mmol/L (101-111) 05/25/22 04:43 Carbon Dioxide 26 mmol/L (21-32) 05/25/22 04:43 Anion Gap 10.0 (6-13) 05/25/22 04:43 BUN 52 mg/dL (6-20) H 05/25/22 04:43 Creatinine 1.3 mg/dL (0.6-1.2) H 05/25/22 04:43 Estimated GFR (MDRD) 52 (>89) L 05/25/22 04:43 Glucose 121 mg/dL (70-100) H 05/25/22 04:43 Lactic Acid 1.4 mmol/L (0.5-2.2) 05/22/22 09:59 Calcium 8.3 mg/dL (8.5-10.3) L 05/25/22 04:43 Magnesium 2.2 mg/dL (1.7-2.8) 05/23/22 04:17 Total Bilirubin 1.2 mg/dL (0.2-1.0) H 05/22/22 09:59 AST 35 IU/L (10-42) 05/22/22 09:59 ALT 20 IU/L (10-60) 05/22/22 09:59 Alkaline Phosphatase 144 IU/L (42-121) H 05/22/22 09:59 B-Natriuretic Peptide 310 pg/mL (5-100) H 05/23/22 04:17 Total Protein 7.0 g/dL (6.7-8.2) 05/22/22 09:59 Albumin 3.1 g/dL (3.2-5.5) L 05/22/22 09:59 Globulin 3.9 g/dL (2.1-4.2) 05/22/22 09:59 Albumin/Globulin Ratio 0.8 (1.0-2.2) L 05/22/22 09:59 Lipase 33 U/L (22-51) 05/22/22 09:59 Vitamin D 25-Hydroxy 37.8 ng/mL (30.0-100.0) 05/23/22 15:40 Nasal Adenovirus (PCR) NOT DETECTED 05/22/22 09:43 Nasal B. parapertussis DNA (PCR) NOT DETECTED 05/22/22 09:43 Nasal Coronavir 229E PCR NOT DETECTED 05/22/22 09:43 Nasal Coronavir HKU1 PCR NOT DETECTED 05/22/22 09:43 Nasal Coronavir NL63 PCR NOT DETECTED 05/22/22 09:43 Nasal Coronavir OC43 PCR NOT DETECTED 05/22/22 09:43 Nasal Enterovir/Rhinovir PCR NOT DETECTED 05/22/22 09:43 Nasal Influenza B PCR NOT DETECTED 05/22/22 09:43 Nasal Influenza A PCR NOT DETECTED 05/22/22 09:43 Nasal Parainfluen 1 PCR NOT DETECTED 05/22/22 09:43 Nasal Parainfluen 2 PCR NOT DETECTED 05/22/22 09:43 Nasal Parainfluen 3 PCR NOT DETECTED 05/22/22 09:43 Nasal Parainfluen 4 PCR NOT DETECTED 05/22/22 09:43 Nasal RSV (PCR) NOT DETECTED 05/22/22 09:43 Nasal B.pertussis DNA PCR NOT DETECTED 05/22/22 09:43 Nasal C.pneumoniae (PCR) NOT DETECTED 05/22/22 09:43 [place] Human Metapneumo PCR NOT DETECTED 05/22/22 09:43 Nasal M.pneumoniae (PCR) NOT DETECTED 05/22/22 09:43 Nasal SARS-CoV-2 (PCR) DETECTED A 05/22/22 09:43
[2022-05-25] MEDS: SPIRONOLACTONE 25 MG TABLET PO SCH (09:30)
[2022-05-25] MEDS: TAMSULOSIN 0.4 MG CAPSULE PO SCH (09:31)
[2022-05-25] MEDS: carvediloL 12.5 MG TABLET PO SCH ×2 (09:31→20:25)
[2022-05-25] MEDS: CHOLECALCIFEROL 25 MCG TABLET PO SCH (09:31)
[2022-05-25] MEDS: GABAPENTIN 400 MG CAPSULE PO SCH ×3 (09:31→20:25)
[2022-05-25] MEDS: MULTIVITAMIN TABLET PO SCH (09:32)
[2022-05-25] MEDS: MAGNESIUM OXIDE 400 MG TABLET PO SCH (09:32)
[2022-05-25] MEDS: DEXAMETHASONE 4 MG/ML VIAL IVP SCH (09:32)
[2022-05-25] MEDS: AMIODARONE 200 MG TABLET PO SCH (09:32)
[2022-05-25] MEDS: polyethylene glycoL 3350 17 GM PACKET PO SCH (09:33)
[2022-05-25] MEDS: REMDESIVIR 100MG VIAL 100 MG in SODIUM CHLORIDE 0.9% 100ML 100 ML IV SCH (09:33)
[2022-05-25] MEDS: SODIUM CHLORIDE FLUSH 0.9% 10 ML SYRINGE IVP SCH ×2 (09:34→17:12)
[2022-05-25] MEDS ORDERED: PHYTONADIONE 10 MG/ML AMP PO ONE (10:55)
[2022-05-25] MEDS ORDERED: CHERRY SYRUP 10 ML UDC PO ONE (10:55)
--- NOTE | 2022-05-25 11:39 | XRAY Report ---
PROCEDURE: Shoulder 2 View RT INDICATIONS: [place] pop in R shoulder when was turning reaching TECHNIQUE: 2 views of the shoulder were acquired. COMPARISON: None. FINDINGS: Bones: Degenerative arthritis of the glenohumeral joint. No fractures or dislocations. No suspiciou s bony lesions. Visualized ribs appear intact. Soft tissues: No suspicious soft tissue calcifications. IMPRESSION: Degenerative change. No evidence acute bony abnormality of the right shoulder.. If clinical suspicion and/or symptoms persist, further assessment with repeat plain films or advanced imaging (e.g., CT, MRI, or bone scan) may be helpful for further assessment. Reviewed by: Qamar Jeffers MD on 05/25/2022 11:38 AM PST Approved by: Qamar Jeffers MD on 05/25/2022 11:38 AM PST Station ID: [id number]
[2022-05-25] MEDS: WARFARIN 1 MG TABLET PO SCH (13:56)
[2022-05-25] MEDS: ATORVASTATIN 10 MG TABLET PO SCH (21:47)
[2022-05-26] MEDS: ACETAMINOPHEN 325 MG TABLET PO PRN (01:00)
[2022-05-26] MEDS: SODIUM CHLORIDE FLUSH 0.9% 10 ML SYRINGE IVP SCH ×4 (01:00→23:43)
[2022-05-26 06:11] LABS: BASOPHILS % (AUTO) 0.1 %; HCT - HEMATOCRIT 44.3 % (42.0-52.0); HGB - HEMOGLOBIN 14.5 g/dL (14.0-18.0); LYMPHOCYTES # (AUTO) 0.5 10^3/uL (1.5-3.5); LYMPHOCYTES % (AUTO) 6.1 %; MEAN CORPUSCULAR HEMOGLOBIN 32.4 pg (27.0-31.0); MEAN CORPUSCULAR HGB CONC 32.7 g/dL (32.0-36.0); MEAN CORPUSCULAR VOLUME 98.9 fL (80.0-94.0); MONOCYTES # (AUTO) 0.8 10^3/uL (0.0-1.0); NEUTROPHILS # (AUTO) 6.3 10^3/uL (1.5-6.6); PLT - PLATELET COUNT 220 10^3/uL (130-450); RED BLOOD COUNT 4.48 10^6/uL (4.70-6.10); RED CELL DISTRIBUTION WIDTH 14.1 % (12.0-15.0); WHITE BLOOD COUNT 7.6 x10^3/uL (4.8-10.8)
[2022-05-26 06:14] LABS: INR 2.1 (0.8-1.2); PT - PROTHROMBIN TIME 22.8 secs (9.9-12.6)
[2022-05-26 06:18] LABS: CALCIUM 7.9 mg/dL (8.5-10.3); CREATININE 1.3 mg/dL (0.6-1.2); POTASSIUM 4.4 mmol/L (3.5-5.0)
--- NOTE | 2022-05-26 09:21 | PROVIDER PROGRESS NOTE ---
Assessment/Plan - Problem List (1) Acute respiratory failure with hypoxia Assessment/Plan: Cause is likely to be his COVID-pneumonia but he also has underlying CHF with systolic heart failure and history of COPD. Plan: Continue supplemental O2, target O2 sat 90%. Continue to treat the underlying causes. (2) Pneumonia due to COVID-19 virus Conclusion/Plan: Plan: Isolation suppl O2 Remdesivir daily started 12/, a 5 day course is planned He got Decadron 10 mg on Day #1, now is on 6 mg iv daily. a maximum 10-day course is planned. (3) Pre-renal azotemia Conclusion/Plan: BUN/creat ratio is rising. We stopped his home dose of Lasix. But his po intake is poor, and he is likely not adequately hydrating Plan: Will stop Spironolactone Will give 1L of saline slowly Avoid nephrotoxins Follow BMP daily (4) History of COPD Conclusion/Plan: Plan: Will continue any home meds We will continue with IV Decadron as in #2. Continue with bronchodilators via inhaler (5) Chronic a-fib Conclusion/Plan: He is 100% ventricular paced on his admission EKG, indicating his meds are preventing RVR. His INR is supratherapeutic. Plan: Continue cardiac meds and it looks like he took or takes Amiodarone, his home med list is not yet reconciled Continue Coumadin, target INR is 2-3. Will follow INR daily while Inpt, hold if INR >3 Telemetry for 24 hours, since mostly paced, we stopped telemetry (6) Chronic systolic heart failure Conclusion/Plan: His last Echo done here 4 years ago, LVEF was 45%. Plan: Continue with his home meds for his systolic heart failure, but we need to stop Lasix and Spironolactone temporarily, due to pre-renal azotemia. Follow BMP daily Daily weight (7) CHERRY on CPAP Conclusion/Plan: He told his RN he has nasal polyps and is a mouth breather as well as having sleep apnea and uses his CPAP evice. Plan: We ordered his home CPAP to use here and caregiver brought it in. (8) Poor memory Conclusion/Plan: He called out for help, when we entered he did not remember what he needed. He is a poor historian and cannot give any details about himself. His baseline mental status is not known from our records. I suspect there is dementia, since he has a hired caregiver and a hired RN who take care of him in [facility], most or all days of the week. Plan: Continue with supportive care - Current Meds Current Meds: Current Medications Generic Name Dose Route Start Last Admin Trade Name Jeovany PRN Reason Stop Dose Admin Acetaminophen 650 mg 05/26/22 00:03 05/26/22 01:00 Acetaminophen 325 Mg Tablet PO 650 mg Q6HR PRN Administration Pain or Fever > 38C (100.4F) Amiodarone HCl 100 mg 05/23/22 17:36 05/25/22 09:32 Amiodarone 200 Mg Tablet PO 100 mg DAILY SCOTT Administration Atorvastatin Calcium 10 mg 05/23/22 21:00 05/25/22 21:47 Atorvastatin 10 Mg Tablet PO 10 mg QPM SCOTT Administration Carvedilol 6.25 mg 05/23/22 21:00 05/25/22 20:25 Carvedilol 12.5 Mg Tablet PO 6.25 mg BID SCOTT Administration Cholecalciferol 50 mcg 05/24/22 09:00 05/25/22 09:31 Cholecalciferol 25 Mcg Tablet PO 50 mcg DAILY SCOTT Administration Dexamethasone 6 mg 05/23/22 09:00 05/25/22 09:32 Dexamethasone 4 Mg/Ml Vial IVP 06/01/22 00:01 6 mg DAILY SCOTT Administration Gabapentin 400 mg 05/23/22 22:00 05/25/22 20:25 Gabapentin 400 Mg Capsule PO 400 mg TID SCOTT Administration Remdesivir 100 mg/ Sodium 100 mls @ 200 mls/hr 05/23/22 09:00 05/25/22 10:43 Chloride IV 05/26/22 09:29 Infused DAILY SCOTT Infusion Magnesium Oxide 400 mg 05/24/22 09:00 05/25/22 09:32 Magnesium Oxide 400 Mg Tablet PO 400 mg DAILY SCOTT Administration Multivitamins 1 tab 05/24/22 08:00 05/25/22 09:32 Multivitamin Tablet PO 1 tab DAILYWM SCOTT Administration Polyethylene Glycol 17 gm 05/25/22 09:00 05/25/22 09:33 Polyethylene Glycol 3350 17 Gm Packet PO 17 gm DAILY SCOTT Administration Sodium Chloride 10 ml 05/22/22 15:24 05/22/22 18:30 Sodium Chloride Flush 0.9% 10 Ml Syringe IVP 10 ml PRN PRN Administration NEEDED PER PROVIDER ORDERS Sodium Chloride 10 ml 05/22/22 17:00 05/26/22 01:00 Sodium Chloride Flush 0.9% 10 Ml Syringe IVP 10 ml 0100,0900,1700 SCOTT Administration Tamsulosin HCl 0.4 mg 05/24/22 09:00 05/25/22 09:31 Tamsulosin 0.4 Mg Capsule PO 0.4 mg DAILY SCOTT Administration Warfarin Sodium 2 mg 05/24/22 10:41 05/25/22 13:56 Warfarin 1 Mg Tablet PO Not Given 1400 SCOTT - Lab Result Fish Bone Diagrams: 05/26/22 05:52 05/26/22 05:52 - Additional Planning My Orders: My Active Orders 05/25/22 09:00 polyethylene glycoL 3350 [Miralax] 17 gm PO DAILY 05/27/22 05:00 BMP - BASIC METABOLIC PANEL [CHEM] DAILYLAB CBC - COMP BLD CT W/AUTO DIFF [HEME] DAILYLAB PT WITH INR [COAG] DAILYLAB 05/28/22 05:00 BMP - BASIC METABOLIC PANEL [CHEM] DAILYLAB PT WITH INR [COAG] DAILYLAB 05/28/22 14:00 Warfarin [Coumadin] 1 mg PO MO Subjective - Subjective Patient Reports: Feeling Better (We assume so, beacuse he appears more comfortable and is not calling out, the last 2 days.) Objective Vital Signs: Vital Signs - 24 hr 05/25/22 05/25/22 05/25/22 09:28 09:30 13:36 Temperature 36.2 C L Heart Rate [ 71 118 H Brachial] Respiratory 24 24 Rate Blood Pressure 115/67 114/61 [Left Brachial artery] Blood Pressure [Right Brachial artery] O2 Saturation 90 L 90 L If not protocol 15 15 : Oxygen Flow, liters/minute 05/25/22 05/25/22 05/25/22 16:49 19:10 23:32 Temperature 36.7 C 36.2 C L Heart Rate [ 113 H 67 Brachial] Respiratory 24 24 Rate Blood Pressure 125/67 [Left Brachial artery] Blood Pressure 111/57 L [Right Brachial artery] O2 Saturation 93 93 If not protocol 15 15 15 : Oxygen Flow, liters/minute 05/26/22 07:23 Temperature 36.4 C L Heart Rate [ 115 H Brachial] Respiratory 24 Rate Blood Pressure [Left Brachial artery] Blood Pressure 125/66 [Right Brachial artery] O2 Saturation 92 If not protocol 15 : Oxygen Flow, liters/minute Oxygen O2 Source Oxymask Oxygen Flow Rate 10 I&O (Last 24 Hrs): Intake and Output Totals x24h 05/24/22 05/25/22 05/26/22 23:59 23:59 23:59 Intake Total 2480 1110 Output Total 700 500 400 Balance 1780 610 -400 General: Alert, No acute distress HEENT: Mucous membr. moist/pink Neck: Supple, Other (Has a large sahu and canot eval JVP) Neuro: Alert, Disoriented Cardiovascular: Regular rate Respiratory: No respiratory distress (while on suppl O2) Abdomen: Soft Extremities: No clubbing, No edema - Results Results: Laboratory Results WBC 7.6 x10^3/uL (4.8-10.8) 05/26/22 05:52 RBC 4.48 10^6/uL (4.70-6.10) L 05/26/22 05:52 Hgb 14.5 g/dL (14.0-18.0) 05/26/22 05:52 Hct 44.3 % (42.0-52.0) 05/26/22 05:52 MCV 98.9 fL (80.0-94.0) H 05/26/22 05:52 MCH 32.4 pg (27.0-31.0) H 05/26/22 05:52 MCHC 32.7 g/dL (32.0-36.0) 05/26/22 05:52 RDW 14.1 % (12.0-15.0) 05/26/22 05:52 Plt Count 220 10^3/uL (130-450) 05/26/22 05:52 MPV 11.0 fL (7.4-11.4) 05/26/22 05:52 Neut # (Auto) 6.3 10^3/uL (1.5-6.6) 05/26/22 05:52 Lymph # (Auto) 0.5 10^3/uL (1.5-3.5) L 05/26/22 05:52 [place] # (Auto) 0.8 10^3/uL (0.0-1.0) 05/26/22 05:52 Eos # (Auto) 0.0 10^3/uL (0.0-0.7) 05/26/22 05:52 Baso # (Auto) 0.0 10^3/uL (0.0-0.1) 05/26/22 05:52 Absolute Nucleated RBC 0.00 x10^3/uL 05/26/22 05:52 Nucleated RBC % 0.0 /100WBC 05/26/22 05:52 PT 22.8 secs (9.9-12.6) H 05/26/22 05:52 INR 2.1 (0.8-1.2) H 05/26/22 05:52 Sodium 138 mmol/L (135-145) 05/26/22 05:52 Potassium 4.4 mmol/L (3.5-5.0) 05/26/22 05:52 Chloride 101 mmol/L (101-111) 05/26/22 05:52 Carbon Dioxide 28 mmol/L (21-32) 05/26/22 05:52 Anion Gap 9.0 (6-13) 05/26/22 05:52 BUN 55 mg/dL (6-20) H 05/26/22 05:52 Creatinine 1.3 mg/dL (0.6-1.2) H 05/26/22 05:52 Estimated GFR (MDRD) 52 (>89) L 05/26/22 05:52 Glucose 120 mg/dL (70-100) H 05/26/22 05:52 Lactic Acid 1.4 mmol/L (0.5-2.2) 05/22/22 09:59 Calcium 7.9 mg/dL (8.5-10.3) L 05/26/22 05:52 Magnesium 2.2 mg/dL (1.7-2.8) 05/23/22 04:17 Total Bilirubin 1.2 mg/dL (0.2-1.0) H 05/22/22 09:59 AST 35 IU/L (10-42) 05/22/22 09:59 ALT 20 IU/L (10-60) 05/22/22 09:59 Alkaline Phosphatase 144 IU/L (42-121) H 05/22/22 09:59 B-Natriuretic Peptide 310 pg/mL (5-100) H 05/23/22 04:17 Total Protein 7.0 g/dL (6.7-8.2) 05/22/22 09:59 Albumin 3.1 g/dL (3.2-5.5) L 05/22/22 09:59 Globulin 3.9 g/dL (2.1-4.2) 05/22/22 09:59 Albumin/Globulin Ratio 0.8 (1.0-2.2) L 05/22/22 09:59 Lipase 33 U/L (22-51) 05/22/22 09:59 Vitamin D 25-Hydroxy 37.8 ng/mL (30.0-100.0) 05/23/22 15:40 Nasal Adenovirus (PCR) NOT DETECTED 05/22/22 09:43 Nasal B. parapertussis DNA (PCR) NOT DETECTED 05/22/22 09:43 Nasal Coronavir 229E PCR NOT DETECTED 05/22/22 09:43 Nasal Coronavir HKU1 PCR NOT DETECTED 05/22/22 09:43 Nasal Coronavir NL63 PCR NOT DETECTED 05/22/22 09:43 Nasal Coronavir OC43 PCR NOT DETECTED 05/22/22 09:43 Nasal Enterovir/Rhinovir PCR NOT DETECTED 05/22/22 09:43 Nasal Influenza B PCR NOT DETECTED 05/22/22 09:43 Nasal Influenza A PCR NOT DETECTED 05/22/22 09:43 Nasal Parainfluen 1 PCR NOT DETECTED 05/22/22 09:43 Nasal Parainfluen 2 PCR NOT DETECTED 05/22/22 09:43 Nasal Parainfluen 3 PCR NOT DETECTED 05/22/22 09:43 Nasal Parainfluen 4 PCR NOT DETECTED 05/22/22 09:43 Nasal RSV (PCR) NOT DETECTED 05/22/22 09:43 Nasal B.pertussis DNA PCR NOT DETECTED 05/22/22 09:43 Nasal C.pneumoniae (PCR) NOT DETECTED 05/22/22 09:43 [place] Human Metapneumo PCR NOT DETECTED 05/22/22 09:43 Nasal M.pneumoniae (PCR) NOT DETECTED 05/22/22 09:43 Nasal SARS-CoV-2 (PCR) DETECTED A 05/22/22 09:43
[2022-05-26] MEDS ORDERED: SODIUM CHLORIDE 0.9% 1,000 ML IV SCH (10:00)
[2022-05-26] MEDS: REMDESIVIR 100MG VIAL 100 MG in SODIUM CHLORIDE 0.9% 100ML 100 ML IV SCH (10:50)
[2022-05-26] MEDS: polyethylene glycoL 3350 17 GM PACKET PO SCH (10:50)
[2022-05-26] MEDS: DEXAMETHASONE 4 MG/ML VIAL IVP SCH (10:50)
[2022-05-26] MEDS: carvediloL 12.5 MG TABLET PO SCH ×2 (10:51→21:09)
[2022-05-26] MEDS: TAMSULOSIN 0.4 MG CAPSULE PO SCH (10:51)
[2022-05-26] MEDS: AMIODARONE 200 MG TABLET PO SCH (10:52)
[2022-05-26] MEDS: MULTIVITAMIN TABLET PO SCH (10:52)
[2022-05-26] MEDS: GABAPENTIN 400 MG CAPSULE PO SCH ×4 (10:52→21:09)
[2022-05-26] MEDS: MAGNESIUM OXIDE 400 MG TABLET PO SCH (10:52)
[2022-05-26] MEDS: CHOLECALCIFEROL 25 MCG TABLET PO SCH (10:53)
[2022-05-26] MEDS ORDERED: LIDOCAINE PATCH 5% TOP PRN (12:31)
[2022-05-26] MEDS: WARFARIN 1 MG TABLET PO SCH (14:25)
[2022-05-26] MEDS: ATORVASTATIN 10 MG TABLET PO SCH (21:10)
[2022-05-27 05:57] LABS: BASOPHILS % (AUTO) 0.2 %; HCT - HEMATOCRIT 46.3 % (42.0-52.0); HGB - HEMOGLOBIN 14.6 g/dL (14.0-18.0); LYMPHOCYTES # (AUTO) 0.4 10^3/uL (1.5-3.5); LYMPHOCYTES % (AUTO) 4.6 %; MEAN CORPUSCULAR HGB CONC 31.5 g/dL (32.0-36.0); MEAN CORPUSCULAR VOLUME 98.3 fL (80.0-94.0); MEAN PLATELET VOLUME 11.2 fL (7.4-11.4); MONOCYTES # (AUTO) 0.9 10^3/uL (0.0-1.0); MONOCYTES % (AUTO) 10.3 %; NEUTROPHILS # (AUTO) 6.9 10^3/uL (1.5-6.6); NEUTROPHILS % (AUTO) 83.4 %; PLT - PLATELET COUNT 228 10^3/uL (130-450); RED BLOOD COUNT 4.71 10^6/uL (4.70-6.10); RED CELL DISTRIBUTION WIDTH 13.7 % (12.0-15.0); WHITE BLOOD COUNT 8.3 x10^3/uL (4.8-10.8)
[2022-05-27 06:04] LABS: CREATININE 1.1 mg/dL (0.6-1.2); POTASSIUM 4.6 mmol/L (3.5-5.0)
[2022-05-27 06:11] LABS: INR 1.7 (0.8-1.2); PT - PROTHROMBIN TIME 18.3 secs (9.9-12.6)
[2022-05-27] MEDS: TAMSULOSIN 0.4 MG CAPSULE PO SCH (09:00)
[2022-05-27] MEDS: AMIODARONE 200 MG TABLET PO SCH (09:01)
[2022-05-27] MEDS: DEXAMETHASONE 4 MG/ML VIAL IVP SCH (09:01)
[2022-05-27] MEDS: carvediloL 12.5 MG TABLET PO SCH ×2 (09:02→22:47)
[2022-05-27] MEDS: MULTIVITAMIN TABLET PO SCH (09:03)
[2022-05-27] MEDS: MAGNESIUM OXIDE 400 MG TABLET PO SCH (09:03)
[2022-05-27] MEDS: CHOLECALCIFEROL 25 MCG TABLET PO SCH (09:03)
[2022-05-27] MEDS: GABAPENTIN 400 MG CAPSULE PO SCH ×3 (09:04→22:48)
[2022-05-27] MEDS: polyethylene glycoL 3350 17 GM PACKET PO SCH (09:04)
[2022-05-27] MEDS: SODIUM CHLORIDE FLUSH 0.9% 10 ML SYRINGE IVP SCH ×2 (09:05→16:18)
[2022-05-27] MEDS ORDERED: SENNA 8.6 MG TABLET PO PRN (11:00)
[2022-05-27] MEDS ORDERED: DOCUSATE SODIUM 250 MG CAPSULE PO PRN (11:00)
[2022-05-27] MEDS: WARFARIN 2.5 MG TABLET PO SCH (13:56)
[2022-05-27] MEDS ORDERED: WARFARIN 1 MG TABLET PO ONE (14:00)
--- NOTE | 2022-05-27 16:45 | PROVIDER PROGRESS NOTE ---
Assessment/Plan - Problem List (1) Acute respiratory failure with hypoxia Assessment/Plan: Cause is likely to be his COVID-pneumonia but he also has underlying CHF with systolic heart failure and history of COPD. Plan: Continue supplemental O2, target O2 sat 90%. Trying to wean down from 15 L/min today and he may be able to tolerate 7-8 L/min. Continue to treat the underlying causes. (2) Pneumonia due to COVID-19 virus Conclusion/Plan: Plan: Isolation suppl O2 Remdesivir daily started 05/22, a 5 day course is planned He got Decadron 10 mg on Day #1, now is on 6 mg iv daily. a maximum 10-day course is planned. (3) Pre-renal azotemia Conclusion/Plan: BUN/creat ratio was rising. We stopped his home dose of Lasix. But his po intake is poor, and he is likely not adequately hydrating Plan: We stopped Spironolactone as well as the Lasix We ordered 1L of saline slowly, and creat improved from 1.3 to 1.0 today Avoid nephrotoxins Follow BMP daily (4) History of COPD Conclusion/Plan: Plan: Will continue any home meds We will continue with IV Decadron as in #2. Continue with bronchodilators via inhaler (5) Chronic a-fib Conclusion/Plan: He was 100% ventricular paced on his admission EKG, indicating his meds are preventing RVR. His INR is supratherapeutic. Plan: Continue cardiac meds and it looks like he took or takes Amiodarone, his home med list is not yet reconciled Continue Coumadin, target INR is 2-3. Will follow INR daily while Inpt, hold if INR >3 Telemetry for 24 hours, since mostly paced, we stopped telemetry (6) Chronic systolic heart failure Conclusion/Plan: His last Echo done here 4 years ago, LVEF was 45%. Plan: Continue with his home meds for his systolic heart failure, but we need to stop Lasix and Spironolactone temporarily, due to pre-renal azotemia. Follow BMP daily Daily weight He is not in obvious heart failure during this admission; no Echo was ordered. (7) CHERRY on CPAP Conclusion/Plan: He told his RN he has nasal polyps and is a mouth breather as well as having sleep apnea and uses his CPAP evice. Plan: We ordered his home CPAP to use here and caregiver brought it in. (8) Poor memory Conclusion/Plan: He called out for help when first admitted, when we entered he did not remember what he needed. He is a poor historian and cannot give any details about himself. His baseline mental status is not known from our records. I suspect there is dementia, since he has a hired caregiver and a hired RN who take care of him in his house, most or all days of the week. Plan: Continue with supportive care and reorienting - Current Meds Current Meds: Current Medications Generic Name Dose Route Start Last Admin Trade Name Freq PRN Reason Stop Dose Admin Acetaminophen 650 mg 05/26/22 00:03 05/26/22 01:00 Acetaminophen 325 Mg Tablet PO 650 mg Q6HR PRN Administration Pain or Fever > 38C (100.4F) Amiodarone HCl 100 mg 05/23/22 17:36 05/27/22 09:01 Amiodarone 200 Mg Tablet PO 100 mg DAILY SCOTT Administration Atorvastatin Calcium 10 mg 05/23/22 21:00 05/26/22 21:10 Atorvastatin 10 Mg Tablet PO 10 mg QPM SCOTT Administration Carvedilol 6.25 mg 05/23/22 21:00 05/27/22 09:02 Carvedilol 12.5 Mg Tablet PO 6.25 mg BID SCOTT Administration Cholecalciferol 50 mcg 05/24/22 09:00 05/27/22 09:03 Cholecalciferol 25 Mcg Tablet PO 50 mcg DAILY SCOTT Administration Dexamethasone 6 mg 05/23/22 09:00 05/27/22 09:01 Dexamethasone 4 Mg/Ml Vial IVP 06/01/22 00:01 6 mg DAILY SCOTT Administration Gabapentin 400 mg 05/26/22 11:00 05/27/22 13:55 Gabapentin 400 Mg Capsule PO 400 mg TID SCOTT Administration Magnesium Oxide 400 mg 05/24/22 09:00 05/27/22 09:03 Magnesium Oxide 400 Mg Tablet PO 400 mg DAILY SCOTT Administration Multivitamins 1 tab 05/24/22 08:00 05/27/22 09:03 Multivitamin Tablet PO 1 tab DAILYWM SCOTT Administration Polyethylene Glycol 17 gm 05/25/22 09:00 05/27/22 09:04 Polyethylene Glycol 3350 17 Gm Packet PO 17 gm DAILY SCOTT Administration Sodium Chloride 10 ml 05/22/22 15:24 05/22/22 18:30 Sodium Chloride Flush 0.9% 10 Ml Syringe IVP 10 ml PRN PRN Administration NEEDED PER PROVIDER ORDERS Sodium Chloride 10 ml 05/22/22 17:00 05/27/22 16:18 Sodium Chloride Flush 0.9% 10 Ml Syringe IVP 10 ml 0100,0900,1700 SCOTT Administration Tamsulosin HCl 0.4 mg 05/24/22 09:00 05/27/22 09:00 Tamsulosin 0.4 Mg Capsule PO 0.4 mg DAILY SCOTT Administration Warfarin Sodium 2.5 mg 05/27/22 14:00 05/27/22 13:56 Warfarin 2.5 Mg Tablet PO Not Given QDWARFARIN SCOTT - Lab Result Fish Bone Diagrams: 05/27/22 05:15 05/27/22 05:15 - Additional Planning My Orders: My Active Orders 05/27/22 11:00 Docusate Sodium 250Mg Capsule [Colace 250Mg Capsule] 250 - 500 mg PO DAILY PRN Senna [Senokot] 8.6 - 34.4 mg PO PRN PRN 05/27/22 14:00 Warfarin [Coumadin] 2.5 mg PO QDWARFARIN 05/28/22 05:00 BMP - BASIC METABOLIC PANEL [CHEM] DAILYLAB PT WITH INR [COAG] DAILYLAB 05/28/22 14:00 Warfarin [Coumadin] 1 mg PO MO Subjective - Subjective Patient Reports: Resting Comfortably (wearing O2 suppl) Objective Vital Signs: Vital Signs - 24 hr 05/26/22 05/26/22 05/26/22 17:00 19:40 21:17 Temperature 36.4 C L Heart Rate [ 116 H 71 Brachial] Respiratory 24 Rate Blood Pressure 137/61 H [Left Brachial artery] Blood Pressure 117/68 [Right Brachial artery] O2 Saturation 93 If not protocol 15 15 : Oxygen Flow, liters/minute 05/27/22 05/27/22 05/27/22 00:04 07:32 13:26 Temperature 36.5 C 36.5 C 36.4 C L Heart Rate [ 62 73 66 Brachial] Respiratory 18 21 22 Rate Blood Pressure [Left Brachial artery] Blood Pressure 113/63 134/70 H 120/66 [Right Brachial artery] O2 Saturation 91 L 92 92 If not protocol : Oxygen Flow, liters/minute 05/27/22 16:00 Temperature 36.5 C Heart Rate [ 52 L Brachial] Respiratory 22 Rate Blood Pressure [Left Brachial artery] Blood Pressure 123/70 [Right Brachial artery] O2 Saturation 91 L If not protocol 9 : Oxygen Flow, liters/minute Oxygen O2 Source CPAP Oxygen Flow Rate 10 I&O (Last 24 Hrs): Intake and Output Totals x24h 05/25/22 05/26/22 05/27/22 23:59 23:59 23:59 Intake Total 7136 882 0869 Output Total 500 700 700 Balance 610 -70 540 General: Alert HEENT: Mucous membr. moist/pink Neck: Supple Neuro: Non Focal, Other (Poor historian) Cardiovascular: Regular rate Respiratory: No respiratory distress (at rest, on O2 suppl), Rhonchi Abdomen: Soft Extremities: No edema - Results Results: Laboratory Results WBC 8.3 x10^3/uL (4.8-10.8) 05/27/22 05:15 RBC 4.71 10^6/uL (4.70-6.10) 05/27/22 05:15 Hgb 14.6 g/dL (14.0-18.0) 05/27/22 05:15 Hct 46.3 % (42.0-52.0) 05/27/22 05:15 MCV 98.3 fL (80.0-94.0) H 05/27/22 05:15 MCH 31.0 pg (27.0-31.0) 05/27/22 05:15 MCHC 31.5 g/dL (32.0-36.0) L 05/27/22 05:15 RDW 13.7 % (12.0-15.0) 05/27/22 05:15 Plt Count 228 10^3/uL (130-450) 05/27/22 05:15 MPV 11.2 fL (7.4-11.4) 05/27/22 05:15 Neut # (Auto) 6.9 10^3/uL (1.5-6.6) H 05/27/22 05:15 Lymph # (Auto) 0.4 10^3/uL (1.5-3.5) L 05/27/22 05:15 [place] # (Auto) 0.9 10^3/uL (0.0-1.0) 05/27/22 05:15 Eos # (Auto) 0.0 10^3/uL (0.0-0.7) 05/27/22 05:15 Baso # (Auto) 0.0 10^3/uL (0.0-0.1) 05/27/22 05:15 Absolute Nucleated RBC 0.00 x10^3/uL 05/27/22 05:15 Nucleated RBC % 0.0 /100WBC 05/27/22 05:15 PT 18.3 secs (9.9-12.6) H 05/27/22 05:15 INR 1.7 (0.8-1.2) H 05/27/22 05:15 Sodium 139 mmol/L (135-145) 05/27/22 05:15 Potassium 4.6 mmol/L (3.5-5.0) 05/27/22 05:15 Chloride 103 mmol/L (101-111) 05/27/22 05:15 Carbon Dioxide 30 mmol/L (21-32) 05/27/22 05:15 Anion Gap 6.0 (6-13) 05/27/22 05:15 BUN 50 mg/dL (6-20) H 05/27/22 05:15 Creatinine 1.1 mg/dL (0.6-1.2) 05/27/22 05:15 Estimated GFR (MDRD) 63 (>89) L 05/27/22 05:15 Glucose 118 mg/dL (70-100) H 05/27/22 05:15 Lactic Acid 1.4 mmol/L (0.5-2.2) 05/22/22 09:59 Calcium 8.0 mg/dL (8.5-10.3) L 05/27/22 05:15 Magnesium 2.2 mg/dL (1.7-2.8) 05/23/22 04:17 Total Bilirubin 1.2 mg/dL (0.2-1.0) H 05/22/22 09:59 AST 35 IU/L (10-42) 05/22/22 09:59 ALT 20 IU/L (10-60) 05/22/22 09:59 Alkaline Phosphatase 144 IU/L (42-121) H 05/22/22 09:59 B-Natriuretic Peptide 310 pg/mL (5-100) H 05/23/22 04:17 Total Protein 7.0 g/dL (6.7-8.2) 05/22/22 09:59 Albumin 3.1 g/dL (3.2-5.5) L 05/22/22 09:59 Globulin 3.9 g/dL (2.1-4.2) 05/22/22 09:59 Albumin/Globulin Ratio 0.8 (1.0-2.2) L 05/22/22 09:59 Lipase 33 U/L (22-51) 05/22/22 09:59 Vitamin D 25-Hydroxy 37.8 ng/mL (30.0-100.0) 05/23/22 15:40 Nasal Adenovirus (PCR) NOT DETECTED 05/22/22 09:43 Nasal B. parapertussis DNA (PCR) NOT DETECTED 05/22/22 09:43 Nasal Coronavir 229E PCR NOT DETECTED 05/22/22 09:43 Nasal Coronavir HKU1 PCR NOT DETECTED 05/22/22 09:43 Nasal Coronavir NL63 PCR NOT DETECTED 05/22/22 09:43 Nasal Coronavir OC43 PCR NOT DETECTED 05/22/22 09:43 Nasal Enterovir/Rhinovir PCR NOT DETECTED 05/22/22 09:43 Nasal Influenza B PCR NOT DETECTED 05/22/22 09:43 Nasal Influenza A PCR NOT DETECTED 05/22/22 09:43 Nasal Parainfluen 1 PCR NOT DETECTED 05/22/22 09:43 Nasal Parainfluen 2 PCR NOT DETECTED 05/22/22 09:43 Nasal Parainfluen 3 PCR NOT DETECTED 05/22/22 09:43 Nasal Parainfluen 4 PCR NOT DETECTED 05/22/22 09:43 Nasal RSV (PCR) NOT DETECTED 05/22/22 09:43 Nasal B.pertussis DNA PCR NOT DETECTED 05/22/22 09:43 Nasal C.pneumoniae (PCR) NOT DETECTED 05/22/22 09:43 [place] Human Metapneumo PCR NOT DETECTED 05/22/22 09:43 Nasal M.pneumoniae (PCR) NOT DETECTED 05/22/22 09:43 Nasal SARS-CoV-2 (PCR) DETECTED A 05/22/22 09:43
[2022-05-27] MEDS: ATORVASTATIN 10 MG TABLET PO SCH (22:47)
[2022-05-28] MEDS: SODIUM CHLORIDE FLUSH 0.9% 10 ML SYRINGE IVP SCH ×3 (03:54→17:35)
[2022-05-28 05:35] LABS: INR 2.3 (0.8-1.2); PT - PROTHROMBIN TIME 24.7 secs (9.9-12.6)
[2022-05-28 05:39] LABS: CALCIUM 8.1 mg/dL (8.5-10.3); POTASSIUM 4.5 mmol/L (3.5-5.0)
[2022-05-28] MEDS: GABAPENTIN 400 MG CAPSULE PO SCH ×3 (06:44→22:33)
[2022-05-28] MEDS: AMIODARONE 200 MG TABLET PO SCH (08:30)
[2022-05-28] MEDS: DEXAMETHASONE 4 MG/ML VIAL IVP SCH (08:32)
[2022-05-28] MEDS: carvediloL 12.5 MG TABLET PO SCH ×2 (08:33→22:28)
[2022-05-28] MEDS: polyethylene glycoL 3350 17 GM PACKET PO SCH (08:35)
[2022-05-28] MEDS: CHOLECALCIFEROL 25 MCG TABLET PO SCH (08:35)
[2022-05-28] MEDS: MAGNESIUM OXIDE 400 MG TABLET PO SCH (08:35)
[2022-05-28] MEDS: TAMSULOSIN 0.4 MG CAPSULE PO SCH (08:35)
[2022-05-28] MEDS: MULTIVITAMIN TABLET PO SCH (08:35)
[2022-05-28] MEDS ORDERED: WARFARIN 1 MG TABLET PO SCH (14:00)
[2022-05-28] MEDS ORDERED: BISACODYL 10 MG SUPP PR ONE (14:45)
[2022-05-28] MEDS: ZINC OXIDE 20% OINT 30 GM TUBE TOP PRN (15:17)
[2022-05-28] MEDS: WARFARIN 2.5 MG TABLET PO SCH (15:21)
--- NOTE | 2022-05-28 15:28 | PROVIDER PROGRESS NOTE ---
Assessment/Plan - Problem List (1) Acute respiratory failure with hypoxia Assessment/Plan: Cause is likely to be his COVID-pneumonia but he also has underlying CHF with systolic heart failure and history of COPD. Plan: Continue supplemental O2, target O2 sat 90%. Trying to wean down from 15 L/min and he was able to tolerate 9 L/min briefly Will order OOB to chair for meals so he can be more upright Will also order PT and OT to start, now that FIO2 has decreased slightly from 15 L/min Continue to treat the underlying causes. (2) Pneumonia due to COVID-19 virus Conclusion/Plan: Plan: Isolation suppl O2 Remdesivir daily started 12/, a 5 day course was planned, has been completed He got Decadron 10 mg on Day #1, now is on 6 mg iv daily. a maximum 10-day cours e is planned. (3) Pre-renal azotemia Conclusion/Plan: BUN/creat ratio has been rising. We stopped his home dose of Lasix. But his po intake is poor, and he is likely not adequately hydrating. We have also stopped Spironolactone as well as the Lasix We also ordered 1L of saline slowly, and creat improved Plan: Will change diet from Low sodium to regular and add protein snack, so he can increase oral intake Avoid nephrotoxins Follow BMP daily (4) History of COPD Conclusion/Plan: Plan: Will continue any home meds We will continue with IV Decadron as in #2. Continue with bronchodilators via inhaler (5) Chronic a-fib Conclusion/Plan: He was 100% ventricular paced on his admission EKG, indicating his meds are preventing RVR. His INR is supratherapeutic. Plan: Continue cardiac meds and it looks like he took or takes Amiodarone, his home med list is not yet reconciled Continue Coumadin, target INR is 2-3. Will follow INR daily while Inpt, hold if INR >3 Telemetry for 24 hours, since mostly paced, we stopped telemetry (6) Chronic systolic heart failure Conclusion/Plan: His last Echo done here 4 years ago, LVEF was 45%. Plan: Continue with his home meds for his systolic heart failure, but we needed to stop Lasix and Spironolactone temporarily, due to pre-renal azotemia. Follow BMP daily Daily weight He is not in obvious heart failure during this admission; no Echo was ordered. (7) CHERRY on CPAP Conclusion/Plan: He told his RN he has nasal polyps and is a mouth breather as well as having sleep apnea and uses his CPAP evice. Plan: We ordered his home CPAP to use here and caregiver brought it in and he uses it (8) Poor memory Conclusion/Plan: He called out for help when first admitted, when we entered the room, he did not remember what he needed. He is a poor historian and cannot give any details about himself. His baseline mental status is not known from our records. I suspect there is dementia, since he has a hired caregiver and a hired RN who take care of him in his house, most or all days of the week. Plan: Continue with supportive care and reorienting - Current Meds Current Meds: Current Medications Generic Name Dose Route Start Last Admin Trade Name Freq PRN Reason Stop Dose Admin Acetaminophen 650 mg 05/26/22 00:03 05/26/22 01:00 Acetaminophen 325 Mg Tablet PO 650 mg Q6HR PRN Administration Pain or Fever > 38C (100.4F) Amiodarone HCl 100 mg 05/23/22 17:36 05/28/22 08:30 Amiodarone 200 Mg Tablet PO 100 mg DAILY SCOTT Administration Atorvastatin Calcium 10 mg 05/23/22 21:00 05/27/22 22:47 Atorvastatin 10 Mg Tablet PO 10 mg QPM SCOTT Administration Carvedilol 6.25 mg 05/23/22 21:00 05/28/22 08:33 Carvedilol 12.5 Mg Tablet PO 6.25 mg BID SCOTT Administration Cholecalciferol 50 mcg 05/24/22 09:00 05/28/22 08:35 Cholecalciferol 25 Mcg Tablet PO 50 mcg DAILY SCOTT Administration Dexamethasone 6 mg 05/23/22 09:00 05/28/22 08:32 Dexamethasone 4 Mg/Ml Vial IVP 06/01/22 00:01 6 mg DAILY SCOTT Administration Gabapentin 400 mg 05/26/22 11:00 05/28/22 15:14 Gabapentin 400 Mg Capsule PO 400 mg TID SCOTT Administration Magnesium Oxide 400 mg 05/24/22 09:00 05/28/22 08:35 Magnesium Oxide 400 Mg Tablet PO 400 mg DAILY SCOTT Administration Multi-Ingredient Ointment 1 applic 05/28/22 11:27 05/28/22 15:17 Zinc Oxide 20% Oint 30 Gm Tube TOP 1 applic PRN PRN Administration Skin Care Multivitamins 1 tab 05/24/22 08:00 05/28/22 08:35 Multivitamin Tablet PO 1 tab DAILYWM SCOTT Administration Polyethylene Glycol 17 gm 05/25/22 09:00 05/28/22 08:35 Polyethylene Glycol 3350 17 Gm Packet PO 17 gm DAILY SCOTT Administration Sodium Chloride 10 ml 05/22/22 15:24 05/22/22 18:30 Sodium Chloride Flush 0.9% 10 Ml Syringe IVP 10 ml PRN PRN Administration NEEDED PER PROVIDER ORDERS Sodium Chloride 10 ml 05/22/22 17:00 05/28/22 08:36 Sodium Chloride Flush 0.9% 10 Ml Syringe IVP 10 ml 0100,0900,1700 SCOTT Administration Tamsulosin HCl 0.4 mg 05/24/22 09:00 05/28/22 08:35 Tamsulosin 0.4 Mg Capsule PO 0.4 mg DAILY SCOTT Administration Warfarin Sodium 1 mg 05/28/22 14:00 05/28/22 15:21 Warfarin 1 Mg Tablet PO 1 mg MO SCOTT Administration Warfarin Sodium 2.5 mg 05/27/22 14:00 05/28/22 15:21 Warfarin 2.5 Mg Tablet PO 2.5 mg QDWARFARIN SCOTT Administration - Lab Result Fish Bone Diagrams: 05/27/22 05:15 05/28/22 05:16 - Additional Planning My Orders: My Active Orders 05/28/22 07:38 Miscellaenous Nursing Order [RC] QSHIFT 05/28/22 Lunch DIET [Regular Diet] [DIET] 05/28/22 11:27 Zinc Oxide 20% Oint [Zinc Oxide] 1 applic TOP PRN PRN 05/28/22 14:00 Warfarin [Coumadin] 1 mg PO MO 05/29/22 Evaluate and Treat OT [OT] Routine Evaluate and Treat PT [PT] Routine Subjective - Subjective Patient Reports: Resting Comfortably (On suppl O2) Objective Vital Signs: Vital Signs - 24 hr 05/27/22 05/27/22 05/27/22 16:00 20:08 20:10 Temperature 36.5 C Heart Rate [ 52 L Brachial] Respiratory 22 Rate Blood Pressure 123/70 [Right Brachial artery] O2 Saturation 91 L 95 If not protocol 9 11 11 : Oxygen Flow, liters/minute 05/27/22 05/28/22 05/28/22 22:36 00:20 08:09 Temperature 36.5 C 36.5 C Heart Rate [ 78 64 61 Brachial] Respiratory 22 20 20 Rate Blood Pressure 121/75 119/75 140/88 H [Right Brachial artery] O2 Saturation 94 94 92 If not protocol 13 13 13 : Oxygen Flow, liters/minute 05/28/22 05/28/22 05/28/22 08:39 08:50 08:51 Temperature Heart Rate [ 72 Brachial] Respiratory Rate Blood Pressure 132/76 H [Right Brachial artery] O2 Saturation 84 L 93 If not protocol 13 : Oxygen Flow, liters/minute 05/28/22 09:00 Temperature Heart Rate [ Brachial] Respiratory Rate Blood Pressure [Right Brachial artery] O2 Saturation If not protocol 11 : Oxygen Flow, liters/minute Oxygen O2 Source CPAP Oxygen Flow Rate 10 I&O (Last 24 Hrs): Intake and Output Totals x24h 05/26/22 05/27/22 05/28/22 23:59 23:59 23:59 Intake Total 630 1740 610 Output Total 700 850 Balance -70 890 610 General: Alert HEENT: Mucous membr. moist/pink Neck: Supple, No JVD Neuro: Alert, Non Focal Cardiovascular: Regular rate Respiratory: No respiratory distress (when at reston O2), Other (diminished breath sounds) Abdomen: Soft Extremities: No clubbing, No edema - Results Results: Laboratory Results WBC 8.3 x10^3/uL (4.8-10.8) 05/27/22 05:15 RBC 4.71 10^6/uL (4.70-6.10) 05/27/22 05:15 Hgb 14.6 g/dL (14.0-18.0) 05/27/22 05:15 Hct 46.3 % (42.0-52.0) 05/27/22 05:15 MCV 98.3 fL (80.0-94.0) H 05/27/22 05:15 MCH 31.0 pg (27.0-31.0) 05/27/22 05:15 MCHC 31.5 g/dL (32.0-36.0) L 05/27/22 05:15 RDW 13.7 % (12.0-15.0) 05/27/22 05:15 Plt Count 228 10^3/uL (130-450) 05/27/22 05:15 MPV 11.2 fL (7.4-11.4) 05/27/22 05:15 Neut # (Auto) 6.9 10^3/uL (1.5-6.6) H 05/27/22 05:15 Lymph # (Auto) 0.4 10^3/uL (1.5-3.5) L 05/27/22 05:15 [place] # (Auto) 0.9 10^3/uL (0.0-1.0) 05/27/22 05:15 Eos # (Auto) 0.0 10^3/uL (0.0-0.7) 05/27/22 05:15 Baso # (Auto) 0.0 10^3/uL (0.0-0.1) 05/27/22 05:15 Absolute Nucleated RBC 0.00 x10^3/uL 05/27/22 05:15 Nucleated RBC % 0.0 /100WBC 05/27/22 05:15 PT 24.7 secs (9.9-12.6) H 05/28/22 05:16 INR 2.3 (0.8-1.2) H 05/28/22 05:16 Sodium 140 mmol/L (135-145) 05/28/22 05:16 Potassium 4.5 mmol/L (3.5-5.0) 05/28/22 05:16 Chloride 105 mmol/L (101-111) 05/28/22 05:16 Carbon Dioxide 27 mmol/L (21-32) 05/28/22 05:16 Anion Gap 8.0 (6-13) 05/28/22 05:16 BUN 44 mg/dL (6-20) H 05/28/22 05:16 Creatinine 1.0 mg/dL (0.6-1.2) 05/28/22 05:16 Estimated GFR (MDRD) 71 (>89) L 05/28/22 05:16 Glucose 111 mg/dL (70-100) H 05/28/22 05:16 Lactic Acid 1.4 mmol/L (0.5-2.2) 05/22/22 09:59 Calcium 8.1 mg/dL (8.5-10.3) L 05/28/22 05:16 Magnesium 2.2 mg/dL (1.7-2.8) 05/23/22 04:17 Total Bilirubin 1.2 mg/dL (0.2-1.0) H 05/22/22 09:59 AST 35 IU/L (10-42) 05/22/22 09:59 ALT 20 IU/L (10-60) 05/22/22 09:59 Alkaline Phosphatase 144 IU/L (42-121) H 05/22/22 09:59 B-Natriuretic Peptide 310 pg/mL (5-100) H 05/23/22 04:17 Total Protein 7.0 g/dL (6.7-8.2) 05/22/22 09:59 Albumin 3.1 g/dL (3.2-5.5) L 05/22/22 09:59 Globulin 3.9 g/dL (2.1-4.2) 05/22/22 09:59 Albumin/Globulin Ratio 0.8 (1.0-2.2) L 05/22/22 09:59 Lipase 33 U/L (22-51) 05/22/22 09:59 Vitamin D 25-Hydroxy 37.8 ng/mL (30.0-100.0) 05/23/22 15:40 Nasal Adenovirus (PCR) NOT DETECTED 05/22/22 09:43 Nasal B. parapertussis DNA (PCR) NOT DETECTED 05/22/22 09:43 Nasal Coronavir 229E PCR NOT DETECTED 05/22/22 09:43 Nasal Coronavir HKU1 PCR NOT DETECTED 05/22/22 09:43 Nasal Coronavir NL63 PCR NOT DETECTED 05/22/22 09:43 Nasal Coronavir OC43 PCR NOT DETECTED 05/22/22 09:43 Nasal Enterovir/Rhinovir PCR NOT DETECTED 05/22/22 09:43 Nasal Influenza B PCR NOT DETECTED 05/22/22 09:43 Nasal Influenza A PCR NOT DETECTED 05/22/22 09:43 Nasal Parainfluen 1 PCR NOT DETECTED 05/22/22 09:43 Nasal Parainfluen 2 PCR NOT DETECTED 05/22/22 09:43 Nasal Parainfluen 3 PCR NOT DETECTED 05/22/22 09:43 Nasal Parainfluen 4 PCR NOT DETECTED 05/22/22 09:43 Nasal RSV (PCR) NOT DETECTED 05/22/22 09:43 Nasal B.pertussis DNA PCR NOT DETECTED 05/22/22 09:43 Nasal C.pneumoniae (PCR) NOT DETECTED 05/22/22 09:43 [place] Human Metapneumo PCR NOT DETECTED 05/22/22 09:43 Nasal M.pneumoniae (PCR) NOT DETECTED 05/22/22 09:43 Nasal SARS-CoV-2 (PCR) DETECTED A 05/22/22 09:43
[2022-05-28] MEDS: ATORVASTATIN 10 MG TABLET PO SCH (22:33)
[2022-05-29] MEDS: SODIUM CHLORIDE FLUSH 0.9% 10 ML SYRINGE IVP SCH ×3 (04:43→17:55)
[2022-05-29 06:04] LABS: BASOPHILS # (AUTO) 0.1 10^3/uL (0.0-0.1); BASOPHILS % (AUTO) 0.7 %; HCT - HEMATOCRIT 46.4 % (42.0-52.0); HGB - HEMOGLOBIN 14.9 g/dL (14.0-18.0); LYMPHOCYTES # (AUTO) 0.5 10^3/uL (1.5-3.5); LYMPHOCYTES % (AUTO) 5.9 %; MEAN CORPUSCULAR HEMOGLOBIN 31.4 pg (27.0-31.0); MEAN CORPUSCULAR HGB CONC 32.1 g/dL (32.0-36.0); MEAN CORPUSCULAR VOLUME 97.7 fL (80.0-94.0); MONOCYTES # (AUTO) 1.1 10^3/uL (0.0-1.0); NEUTROPHILS # (AUTO) 6.9 10^3/uL (1.5-6.6); NEUTROPHILS % (AUTO) 77.5 %; PLT - PLATELET COUNT 216 10^3/uL (130-450); RED BLOOD COUNT 4.75 10^6/uL (4.70-6.10); RED CELL DISTRIBUTION WIDTH 13.9 % (12.0-15.0); WHITE BLOOD COUNT 8.9 x10^3/uL (4.8-10.8)
[2022-05-29 06:05] LABS: INR 3.7 (0.8-1.2); PT - PROTHROMBIN TIME 38.4 secs (9.9-12.6)
[2022-05-29 06:12] LABS: POTASSIUM 4.6 mmol/L (3.5-5.0)
[2022-05-29] MEDS: GABAPENTIN 400 MG CAPSULE PO SCH ×3 (06:50→21:15)
[2022-05-29] MEDS: AMIODARONE 200 MG TABLET PO SCH (09:14)
[2022-05-29] MEDS: DEXAMETHASONE 4 MG/ML VIAL IVP SCH (09:16)
[2022-05-29] MEDS: MAGNESIUM OXIDE 400 MG TABLET PO SCH (09:17)
[2022-05-29] MEDS: CHOLECALCIFEROL 25 MCG TABLET PO SCH (09:17)
[2022-05-29] MEDS: MULTIVITAMIN TABLET PO SCH (09:17)
[2022-05-29] MEDS: carvediloL 12.5 MG TABLET PO SCH ×2 (09:18→21:15)
[2022-05-29] MEDS: TAMSULOSIN 0.4 MG CAPSULE PO SCH (09:18)
[2022-05-29] MEDS: polyethylene glycoL 3350 17 GM PACKET PO SCH (09:18)
[2022-05-29] MEDS: ZINC OXIDE 20% OINT 30 GM TUBE TOP PRN ×2 (10:55→21:17)
[2022-05-29] MEDS: WARFARIN 2.5 MG TABLET PO SCH (13:29)
--- NOTE | 2022-05-29 14:15 | PROVIDER PROGRESS NOTE ---
Subjective - Prog Note Date Prog Note Date: 05/29/22 Prog Note Time: 14:12 - Subjective Subjective: He is cranky. Not happy to be here. But no overnight events. Blood pressure stable. Respiratory therapy successfully able to reduce his nasal cannula from 13 L down to 3 L this morning. Current Medications - Current Medications Current Medications: Active Medications Acetaminophen (Acetaminophen 325 Mg Tablet) 650 mg PO Q6HR PRN PRN Reason: Pain or Fever > 38C (100.4F) Last Admin: 05/26/22 01:00 Dose: 650 mg Amiodarone HCl (Amiodarone 200 Mg Tablet) 100 mg PO DAILY [facility] Last Admin: 05/29/22 09:14 Dose: 100 mg Atorvastatin Calcium (Atorvastatin 10 Mg Tablet) 10 mg PO QPM [facility] Last Admin: 05/28/22 22:33 Dose: 10 mg Carvedilol (Carvedilol 12.5 Mg Tablet) 6.25 mg PO BID [facility] Last Admin: 05/29/22 09:18 Dose: 6.25 mg Cholecalciferol (Cholecalciferol 25 Mcg Tablet) 50 mcg PO DAILY [facility] Last Admin: 05/29/22 09:17 Dose: 50 mcg Dexamethasone (Dexamethasone 4 Mg/Ml Vial) 6 mg IVP DAILY [facility] Stop: 06/01/22 00:01 Last Admin: 05/29/22 09:16 Dose: 6 mg Docusate Sodium (Docusate Sodium 250 Mg Capsule) 250 - 500 mg PO DAILY PRN PRN Reason: STEP 1 OF BOWEL PROTOCOL Gabapentin (Gabapentin 400 Mg Capsule) 400 mg PO TID [facility] Last Admin: 05/29/22 06:50 Dose: 400 mg Lidocaine (Lidocaine Patch 5%) 1 patch TOP DAILY PRN PRN Reason: PAIN Magnesium Oxide (Magnesium Oxide 400 Mg Tablet) 400 mg PO DAILY [facility] Last Admin: 05/29/22 09:17 Dose: 400 mg Multi-Ingredient Ointment (Zinc Oxide 20% Oint 30 Gm Tube) 1 applic TOP PRN PRN PRN Reason: Skin Care Last Admin: 05/29/22 10:55 Dose: 1 applic Multivitamins (Multivitamin Tablet) 1 tab PO DAILYWM [facility] Last Admin: 05/29/22 09:17 Dose: 1 tab Nystatin (Nystatin Powder 15 Gm) 1 applic TOP BID PRN PRN Reason: RASH Ondansetron HCl (Ondansetron 4 Mg/2 Ml Vial) 4 mg IVP Q6HR PRN PRN Reason: Nausea / Vomiting Polyethylene Glycol (Polyethylene Glycol 3350 17 Gm Packet) 17 gm PO DAILY [facility] Last Admin: 05/29/22 09:18 Dose: Not Given Senna (Senna 8.6 Mg Tablet) 8.6 - 34.4 mg PO PRN PRN; Protocol PRN Reason: STEP 1 OF BOWEL PROTOCOL Sodium Chloride (Sodium Chloride Flush 0.9% 10 Ml Syringe) 10 ml IVP PRN PRN PRN Reason: NEEDED PER PROVIDER ORDERS Last Admin: 05/22/22 18:30 Dose: 10 ml Sodium Chloride (Sodium Chloride Flush 0.9% 10 Ml Syringe) 10 ml IVP 0100,0900,1700 [facility] Last Admin: 05/29/22 09:17 Dose: 10 ml Tamsulosin HCl (Tamsulosin 0.4 Mg Capsule) 0.4 mg PO DAILY [facility] Last Admin: 05/29/22 09:18 Dose: 0.4 mg Warfarin Sodium (Warfarin 1 Mg Tablet) 1 mg PO MO [facility] Last Admin: 05/28/22 15:21 Dose: 1 mg Warfarin Sodium (Warfarin 2.5 Mg Tablet) 2.5 mg PO QDWARFARIN [facility] Last Admin: 05/29/22 13:29 Dose: Not Given Magnesium Oxide [Mag Ox] 400 mg PO BID 03/22/14 Multivitamin [Multi-Day Vitamins] 1 cap DAILY 03/22/14 Tamsulosin HCl [Flomax] 0.4 mg PO DAILY 03/22/14 Amiodarone [Pacerone] 100 mg PO DAILY 09/16/17 Polyethylene Glycol 3350 8.5 - 17 gm PO DAILY 09/16/17 Simvastatin 10 mg PO QPM 09/16/17 Spironolactone 12.5 mg PO DAILY 09/16/17 carvediloL [Carvedilol] 6.25 mg PO BIDWM 09/16/17 Gabapentin [Neurontin] 400 mg PO TID 05/22/22 Warfarin [Coumadin] 1 mg PO MO 05/22/22 Warfarin [Coumadin] 2 mg PO DAILY 05/22/22 Clobetasol Propionate/Emoll [Clobetasol Emollnt 0.05% Foam] 1 applic TP DAILY PRN 05/23/22 Furosemide [Lasix] 80 mg PO DAILY 05/23/22 Nitroglycerin [Nitrostat] 0.4 mg SL [id number] PRN 05/23/22 Nystatin [Nystop] 1 applic TOP BID PRN 05/23/22 Objective - Vital Signs/Intake & Output Reviewed Vital Signs: Yes Vital Signs: Vital Signs x48h Pulse Resp BP BP Pulse Ox O2 Flow Rate 05/29/22 10:59 70 127/79 94 3 05/29/22 09:19 60 109/56 L 94 3 05/29/22 07:59 93 3 05/29/22 07:46 62 16 133/72 H 91 L 2 05/29/22 07:00 2 Intake & Output: Intake & Output 05/26/22 05/27/22 05/28/22 05/29/22 23:59 23:59 23:59 23:59 Intake Total 630 1740 2260 1840 Output Total 700 850 100 300 Balance -70 890 2160 1540 - Objective General Appearance: positive: No acute distress, Alert Eyes Bilateral: positive: PERRL, EOMI ENT: positive: No signs of dehydration Neck: positive: No JVD. negative: Stiff neck Respiratory: positive: No respiratory distress, Other (Easily tires with PT). negative: Wheezes (But he has prolonged and exhalation.), Rales, Rhonchi Cardiovascular: positive: Irregularly irregular. negative: Tachycardia, Bradycardia Abdomen: positive: Non-tender, No organomegaly, Nml bowel sounds, No distention Skin: positive: Warm, Dry Extremities: positive: Full ROM, Pedal edema (But it is nonpitting. He has chronic cankles. Dry scaling skin of lower extremity) Neurologic/Psychiatric: positive: CN's nml (2-12), Disoriented to place, Disori ented to time, Other (needs constant cues to place feet correctly to walk w walker, impulsive.). negative: Motor nml - Lab Results Fish Bones: 05/29/22 05:28 05/29/22 05:28 Other Labs: Lab Results x24hrs 05/29/22 05/29/22 05/29/22 Range/Units 05:28 05:28 05:28 WBC 8.9 (4.8-10.8) x10^3/uL RBC 4.75 (4.70-6.10) 10^6/uL Hgb 14.9 (14.0-18.0) g/dL Hct 46.4 (42.0-52.0) % MCV 97.7 H (80.0-94.0) fL MCH 31.4 H (27.0-31.0) pg MCHC 32.1 (32.0-36.0) g/dL RDW 13.9 (12.0-15.0) % Plt Count 216 (130-450) 10^3/uL MPV 11.0 (7.4-11.4) fL Neut # (Auto) 6.9 H (1.5-6.6) 10^3/uL Lymph # (Auto) 0.5 L (1.5-3.5) 10^3/uL [place] # (Auto) 1.1 H (0.0-1.0) 10^3/uL Eos # (Auto) 0.0 (0.0-0.7) 10^3/uL Baso # (Auto) 0.1 (0.0-0.1) 10^3/uL Absolute Nucleated RBC 0.00 x10^3/uL Nucleated RBC % 0.0 /100WBC PT 38.4 H (9.9-12.6) secs INR 3.7 H (0.8-1.2) Sodium 140 (135-145) mmol/L Potassium 4.6 (3.5-5.0) mmol/L Chloride 104 (101-111) mmol/L Carbon Dioxide 28 (21-32) mmol/L Anion Gap 8.0 (6-13) BUN 43 H (6-20) mg/dL Creatinine 1.0 (0.6-1.2) mg/dL Estimated GFR (MDRD) 71 L (>89) Glucose 121 H (70-100) mg/dL Calcium 8.0 L (8.5-10.3) mg/dL ABX Reporting Has patient been on IV antibiotics over the past 48 hours?: No Assessment/Plan - Problem List (1) Acute respiratory failure with hypoxia Impression: Cause is likely to be his COVID-pneumonia plus CHF with systolic heart failure plus history of COPD. We were able to decrease to 3 liters NC from 11-13 liters/CPAP this am so he is improving. Physical therapy is seen and evaluated him. He is significantly below baseline. He cannot even stand to transfer because he is so weak. He is also not able to follow cues. They are recommending custodial facility for short-term rehab. Plan: Continue with previous orders of supplemental O2, target O2 sat 90%. Continue OOB to chair for meals so he can be more upright Continue to treat the underlying causes. Case discussed at care conference this morning. Discharge planning notified to begin process for choice seeing the patient and family for physical rehab to improve strengthening and conditioning (2) Pneumonia due to COVID-19 virus Conclusion/Plan: Plan: Isolation suppl O2 Remdesivir daily started 05/22, a 5 day course was planned, has been completed He got Decadron 10 mg on Day #1, now is on 6 mg iv daily. a maximum 10-day course is planned.He is on day 01/17 (3) Pre-renal azotemia Conclusion/Plan: BUN/creat ratio had been rising to the 50s from 30 so his home dose of Lasix was stopped. Spironolactone was stopped. But his po intake was poor, and he was likely not adequately hydrating. Diet was changed from low-sodium to regular. Also now has a protein snack. And oral intake was more liberal. With 1 L of Lasix, BUN stayed relatively stable at 43. Creatinine is stable at 1.0. He was 1.0 on the . 1.1 on the . And 1.3 on the . Plan: Avoid nephrotoxins Follow BMP daily (4) History of COPD Conclusion/Plan: Plan: Will continue any home meds We will continue with IV Decadron as in #2. Continue with bronchodilators via inhaler (5) Chronic a-fib Conclusion/Plan: He was 100% ventricular paced on his admission EKG, indicating his meds are preventing RVR. His INR was supratherapeutic on admission. Coumadin was adjusted and his INR came down to 2.1 on the . It was 1.7 on the . Yesterday he was 2.3. Unfortunately this morning he is 3.7. After observing on telemetry for 24 hours, he was mostly paced, so we stop telemetry. Plan: Home medication list has him on carvedilol 6.25 twice daily as well as amiodaro ne 100 mg daily. Both of those medications will be continued. Coumadin will be held for today's dose because target INR is 2-3. Will follow INR daily while Inpt, hold if INR >3 (6) Chronic systolic heart failure Conclusion/Plan: His last Echo done here 4 years ago, LVEF was 45%. Weights are erratic on the first day of admission. He was 73 kg and then he was 126 kg. So we will go with 126.5 kg on admission. Today he is still 126.5. Plan: we needed to stop Lasix and Spironolactone temporarily due to pre-renal azotemia. If his weight goes up by a kilogram tomorrow, I will resume 1 of those medications. Follow BMP daily Daily weight He is not in obvious heart failure during this admission; no Echo was ordered. (7) CHERRY on CPAP Conclusion/Plan: He told his RN he has nasal polyps and is a mouth breather as well as having sleep apnea and uses his CPAP evice. Plan: Home CPAP being used while here (8) Poor memory Conclusion/Plan: He called out for help when first admitted, when we entered the room, he did not remember what he needed. He is a poor historian and cannot give any details about himself. His baseline mental status is not known from our records. I suspect there is dementia, since he has a hired caregiver and a hired RN who take care of him in his house, most or all days of the week. Plan: Continue with supportive care and reorienting Discharge planning will have to speak to the caregivers to see if they agree with physical therapy's recommendation of going to a custodial facility for rehab. So far there have been no behavioral disturbances.
[2022-05-29] MEDS: ATORVASTATIN 10 MG TABLET PO SCH (21:15)
[2022-05-30] MEDS: SODIUM CHLORIDE FLUSH 0.9% 10 ML SYRINGE IVP SCH ×3 (00:39→17:07)
[2022-05-30] MEDS: GABAPENTIN 400 MG CAPSULE PO SCH ×3 (05:41→21:18)
[2022-05-30] MEDS: polyethylene glycoL 3350 17 GM PACKET PO SCH (08:53)
[2022-05-30] MEDS: AMIODARONE 200 MG TABLET PO SCH (08:54)
[2022-05-30] MEDS: MAGNESIUM OXIDE 400 MG TABLET PO SCH (08:54)
[2022-05-30] MEDS: CHOLECALCIFEROL 25 MCG TABLET PO SCH (08:54)
[2022-05-30] MEDS: MULTIVITAMIN TABLET PO SCH (08:54)
[2022-05-30] MEDS: DEXAMETHASONE 4 MG/ML VIAL IVP SCH (08:56)
[2022-05-30] MEDS: TAMSULOSIN 0.4 MG CAPSULE PO SCH (08:56)
[2022-05-30] MEDS: carvediloL 12.5 MG TABLET PO SCH ×2 (08:56→21:18)
[2022-05-30] MEDS: WARFARIN 2.5 MG TABLET PO SCH (09:04)
[2022-05-30] MEDS: ACETAMINOPHEN 325 MG TABLET PO PRN (10:47)
--- NOTE | 2022-05-30 18:26 | PROVIDER PROGRESS NOTE ---
Progress Note May 30, 2022 6:18 PM Mr. Aviles was seen this morning and this afternoon. He is quite a current regimen. He even admits that he is just really cranky. He says that he is just really tired of being tired. Tired of being sick. Tired of being in the hospital. He is working with physical therapy he can get to the edge of the bed, and stand but only stands for about 2 seconds when he sits right back down. They are having to use a Eleni lift to be able to get him to the commode and back into his chair. That is how deconditioned and weak he is and it just makes him angry. He is oxygen did okay with the sessions. Did not drop his O2 sats. He complains of a constant runny nose. Wants to know when this is going to end (the runny nose). When asked him how long he has had it he says "all my life" as he blows his nose. With that in mind, my expectation is that he will always have a runny nose. No fever, no chills. No chest pain. Just feels chest congestion and constant coughing. Active Medications Acetaminophen (Acetaminophen 325 Mg Tablet) 650 mg PO Q6HR PRN PRN Reason: Pain or Fever > 38C (100.4F) Last Admin: 05/30/22 10:47 Dose: 650 mg Amiodarone HCl (Amiodarone 200 Mg Tablet) 100 mg PO DAILY [facility] Last Admin: 05/30/22 08:54 Dose: 100 mg Atorvastatin Calcium (Atorvastatin 10 Mg Tablet) 10 mg PO QPM [facility] Last Admin: 05/29/22 21:15 Dose: 10 mg Carvedilol (Carvedilol 12.5 Mg Tablet) 6.25 mg PO BID [facility] Last Admin: 05/30/22 08:56 Dose: Not Given Cholecalciferol (Cholecalciferol 25 Mcg Tablet) 50 mcg PO DAILY [facility] Last Admin: 05/30/22 08:54 Dose: 50 mcg Dexamethasone (Dexamethasone 4 Mg/Ml Vial) 6 mg IVP DAILY [facility] Stop: 06/01/22 00:01 Last Admin: 05/30/22 08:56 Dose: 6 mg Docusate Sodium (Docusate Sodium 250 Mg Capsule) 250 - 500 mg PO DAILY PRN PRN Reason: STEP 1 OF BOWEL PROTOCOL Gabapentin (Gabapentin 400 Mg Capsule) 400 mg PO TID [facility] Last Admin: 05/30/22 14:30 Dose: 400 mg Lidocaine (Lidocaine Patch 5%) 1 patch TOP DAILY PRN PRN Reason: PAIN Magnesium Oxide (Magnesium Oxide 400 Mg Tablet) 400 mg PO DAILY [facility] Last Admin: 05/30/22 08:54 Dose: 400 mg Multi-Ingredient Ointment (Zinc Oxide 20% Oint 30 Gm Tube) 1 applic TOP PRN PRN PRN Reason: Skin Care Last Admin: 05/29/22 21:17 Dose: 1 applic Multivitamins (Multivitamin Tablet) 1 tab PO DAILYWM [facility] Last Admin: 05/30/22 08:54 Dose: 1 tab Nystatin (Nystatin Powder 15 Gm) 1 applic TOP BID PRN PRN Reason: RASH Ondansetron HCl (Ondansetron 4 Mg/2 Ml Vial) 4 mg IVP Q6HR PRN PRN Reason: Nausea / Vomiting Polyethylene Glycol (Polyethylene Glycol 3350 17 Gm Packet) 17 gm PO DAILY [facility] Last Admin: 05/30/22 08:53 Dose: 17 gm Senna (Senna 8.6 Mg Tablet) 8.6 - 34.4 mg PO PRN PRN; Protocol PRN Reason: STEP 1 OF BOWEL PROTOCOL Sodium Chloride (Sodium Chloride Flush 0.9% 10 Ml Syringe) 10 ml IVP PRN PRN PRN Reason: NEEDED PER PROVIDER ORDERS Last Admin: 05/22/22 18:30 Dose: 10 ml Sodium Chloride (Sodium Chloride Flush 0.9% 10 Ml Syringe) 10 ml IVP 0100,0900,1700 [facility] Last Admin: 05/30/22 17:07 Dose: 10 ml Tamsulosin HCl (Tamsulosin 0.4 Mg Capsule) 0.4 mg PO DAILY [facility] Last Admin: 05/30/22 08:56 Dose: 0.4 mg Warfarin Sodium (Warfarin 1 Mg Tablet) 1 mg PO MO [facility] Last Admin: 05/28/22 15:21 Dose: 1 mg Warfarin Sodium (Warfarin 2.5 Mg Tablet) 2.5 mg PO QDWARFARIN [facility] Last Admin: 05/30/22 09:04 Dose: Not Given Magnesium Oxide [Mag Ox] 400 mg PO BID 03/22/14 Multivitamin [Multi-Day Vitamins] 1 cap DAILY 03/22/14 Tamsulosin HCl [Flomax] 0.4 mg PO DAILY 03/22/14 Amiodarone [Pacerone] 100 mg PO DAILY 09/16/17 Polyethylene Glycol 3350 8.5 - 17 gm PO DAILY 09/16/17 Simvastatin 10 mg PO QPM 09/16/17 Spironolactone 12.5 mg PO DAILY 09/16/17 carvediloL [Carvedilol] 6.25 mg PO BIDWM 09/16/17 Gabapentin [Neurontin] 400 mg PO TID 05/22/22 Warfarin [Coumadin] 1 mg PO MO 05/22/22 Warfarin [Coumadin] 2 mg PO DAILY 05/22/22 Clobetasol Propionate/Emoll [Clobetasol Emollnt 0.05% Foam] 1 applic TP DAILY PRN 05/23/22 Furosemide [Lasix] 80 mg PO DAILY 05/23/22 Nitroglycerin [Nitrostat] 0.4 mg SL [id number] PRN 05/23/22 Nystatin [Nystop] 1 applic TOP BID PRN 05/23/22 Temperature is 36.3. Heart rate 66. Blood pressure 127/74. Respirations 16. When he takes a nap he goes back on his CPAP. He is 95% saturated with 3 L. He is 5 foot 11 inches tall, 126 kg. He is an elderly white male with a gurgling voice, clears his throat and it goes away. No respiratory distress and blows his nose at least 3 times during my exam. 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 Neck has shotty adenopathy but no JVD, or bruits. Supple. Lungs with coarse upper airway sounds. Diminished at the bases. But no crackles, rhonchi, or wheezing. Regular rate and rhythm. Abdomen is soft, nontender, and last bowel movement was May 28. He is incontinent of urine and uses a brief or pad. Extremities have no edema Neurologically he is alert and oriented to person place but vague on date and time. He is really hard of hearing. Yesterday his INR was 3.7. I have ordered today's INR and it is pending. Yesterday CBC and BMP were acceptable and I did not check those today. I will check them tomorrow. Assessment/Plan - Problem List (1) Acute respiratory failure with hypoxia Impression: Because it is COVID-pneumonia and systolic heart failure, and COPD. We came down on his oxygen significantly in May 29. He was on 11 and as high as 13 L. He is now down to 3 L and is stayed that way since the . He is significantly deconditioned and weakened. Physical therapy is recommending senior living facility and he agrees to that. His daughter was at the bedside when health care social worker was speaking to him and she really strongly encouraged him because he was sitting on the fence. We have now transition into the chronic respiratory failure stage. I will continue his Decadron until 10 days of completed. He is on his congestive heart failure medications. Currently not requiring bronchodilators. Hopefully we can get authorization from the [facility] today for him to be discharged and to start physical therapy at her [facility] tomorrow. (2) Pneumonia due to COVID-19 virus Conclusion/Plan: Plan: Isolation suppl O2 Remdesivir daily started 05/22, a 5 day course was planned, has been completed He got Decadron 10 mg on Day #1, now is on 6 mg iv daily. a maximum 10-day course is planned.He is on day 910 (3) Pre-renal azotemia Conclusion/Plan: BUN/creat ratio had been rising to the 50s from 30 so his home dose of Lasix was stopped. Spironolactone was stopped. But his po intake was poor, and he was likely not adequately hydrating. Diet was changed from low-sodium to regular. Also now has a protein snack. And oral intake was more liberal. With 1 L of Lasix, BUN stayed relatively stable at 43. Creatinine is stable at 1.0. He was 1.0 on the . 1.1 on the . And 1.3 on the . Plan: Avoid nephrotoxins No BMP today. We will check tomorrow. (4) History of COPD Conclusion/Plan: Plan: Will continue any home meds But his home meds do not have COPD medications listed on them. We will continue with IV Decadron as in #2. I thought you was on a bronchodilator here. He is not. He is not wheezing. Just diminished breath sounds. But I will add albuterol metered-dose inhaler. As needed. (5) Chronic a-fib Conclusion/Plan: He was 100% ventricular paced on his admission EKG, indicating his meds are preventing RVR. We are continuing to monitor. Adjusting his Coumadin because he became supratherapeutic. On May 29 he was 3.7 again. This morning's blood work is still pending. Plan: Home medication list has him on carvedilol 6.25 twice daily as well as amio darone 100 mg daily. Both of those medications will be continued. Await today's INR and then give Coumadin depending on what it is. I suspect it will still be above 3 and will hold Coumadin for that (6) Chronic systolic heart failure Conclusion/Plan: His last Echo done here 4 years ago, LVEF was 45%. Weights are erratic on the first day of admission. He was 73 kg and then he was 126 kg. So we will go with 126.5 kg on admission. Today he is still 126 kg Plan: we needed to stop Lasix and Spironolactone temporarily due to pre-renal azotemia. If his weight goes up by a kilogram, I will resume 1 of those medications. Follow BMP daily Daily weight He is not in obvious heart failure during this admission; no Echo was ordered. (7) CHERRY on CPAP Conclusion/Plan: He told his RN he has nasal polyps and is a mouth breather as well as having sleep apnea and uses his CPAP device. He has been faithfully using it while here when he goes to sleep. Or takes an nap Plan: Home CPAP being used while here (8) Poor memory Conclusion/Plan: He called out for help when first admitted, when we entered the room, he did not remember what he needed. He is a poor historian and cannot give any details about himself. His baseline mental status is not known from our records. I suspect there is dementia, since he has a hired caregiver and a hired RN who take care of him in his house, most or all days of the week. Plan: Continue with supportive care and reorienting In speaking with daughter today, they are in agreement that he should go to a [facility] because of his weakness. As such we are making those arrangements.
[2022-05-30] MEDS: ATORVASTATIN 10 MG TABLET PO SCH (21:18)
[2022-05-31] MEDS: SODIUM CHLORIDE FLUSH 0.9% 10 ML SYRINGE IVP SCH ×3 (00:43→17:40)
[2022-05-31] MEDS: GABAPENTIN 400 MG CAPSULE PO SCH ×3 (05:58→20:37)
[2022-05-31 08:09] LABS: PT - PROTHROMBIN TIME 48.4 secs (9.9-12.6)
[2022-05-31 08:11] LABS: INR 4.7 (0.8-1.2)
[2022-05-31] MEDS: AMIODARONE 200 MG TABLET PO SCH (10:10)
[2022-05-31] MEDS: TAMSULOSIN 0.4 MG CAPSULE PO SCH (10:11)
[2022-05-31] MEDS: MAGNESIUM OXIDE 400 MG TABLET PO SCH (10:12)
[2022-05-31] MEDS: CHOLECALCIFEROL 25 MCG TABLET PO SCH (10:12)
[2022-05-31] MEDS: carvediloL 12.5 MG TABLET PO SCH ×2 (10:12→20:37)
[2022-05-31] MEDS: MULTIVITAMIN TABLET PO SCH (10:12)
[2022-05-31] MEDS: DEXAMETHASONE 4 MG/ML VIAL IVP SCH (10:13)
[2022-05-31] MEDS: polyethylene glycoL 3350 17 GM PACKET PO SCH (10:14)
[2022-05-31] MEDS: WARFARIN 2.5 MG TABLET PO SCH (13:12)
[2022-05-31] MEDS: ACETAMINOPHEN 325 MG TABLET PO PRN (13:15)
--- NOTE | 2022-05-31 17:05 | PROVIDER PROGRESS NOTE ---
Progress Note May 31, 2022 5 PM Daughter came in to visit today. Asked me where we were with disposition. I explained that we have been looking for a jail facility now for a couple of days. We reached out to several and many have not responded to us. That is under the [place] week of social work if she had more specific questions. Dad is really weak. Still requiring a Aundrea lift to get him to a bedside commode. He is just not doing great with PT and that he tires easily and just wants to sit back down again. He gets impatient, cranky, and is hard to nightly. But daughter remonstrated him and he does well with that. He does 3 L oxygen bleed into his CPAP when asleep. Is very compliant with that. He does not have any new complaints today. No chest pain. Same shortness of breath. No abdominal pain. No leg pain. Same nasal congestion and postnasal drip the drives him crazy. Active Medications Acetaminophen (Acetaminophen 325 Mg Tablet) 650 mg PO Q6HR PRN PRN Reason: Pain or Fever > 38C (100.4F) Last Admin: 05/31/22 13:15 Dose: 650 mg Albuterol (Albuterol Neb 2.5 Mg/3 Ml) 2.5 mg INH RTQ4H PRN PRN Reason: Wheezing Amiodarone HCl (Amiodarone 200 Mg Tablet) 100 mg PO DAILY [facility] Last Admin: 05/31/22 10:10 Dose: 100 mg Atorvastatin Calcium (Atorvastatin 10 Mg Tablet) 10 mg PO QPM [facility] Last Admin: 05/30/22 21:18 Dose: 10 mg Carvedilol (Carvedilol 12.5 Mg Tablet) 6.25 mg PO BID [facility] Last Admin: 05/31/22 10:12 Dose: Not Given Cholecalciferol (Cholecalciferol 25 Mcg Tablet) 50 mcg PO DAILY [facility] Last Admin: 05/31/22 10:12 Dose: 50 mcg Dexamethasone (Dexamethasone 4 Mg/Ml Vial) 6 mg IVP DAILY [facility] Stop: 06/01/22 00:01 Last Admin: 05/31/22 10:13 Dose: 6 mg Docusate Sodium (Docusate Sodium 250 Mg Capsule) 250 - 500 mg PO DAILY PRN PRN Reason: STEP 1 OF BOWEL PROTOCOL Gabapentin (Gabapentin 400 Mg Capsule) 400 mg PO TID [facility] Last Admin: 05/31/22 13:15 Dose: 400 mg Lidocaine (Lidocaine Patch 5%) 1 patch TOP DAILY PRN PRN Reason: PAIN Magnesium Oxide (Magnesium Oxide 400 Mg Tablet) 400 mg PO DAILY [facility] Last Admin: 05/31/22 10:12 Dose: 400 mg Multi-Ingredient Ointment (Zinc Oxide 20% Oint 30 Gm Tube) 1 applic TOP PRN PRN PRN Reason: Skin Care Last Admin: 05/29/22 21:17 Dose: 1 applic Multivitamins (Multivitamin Tablet) 1 tab PO DAILYWM [facility] Last Admin: 05/31/22 10:12 Dose: 1 tab Nystatin (Nystatin Powder 15 Gm) 1 applic TOP BID PRN PRN Reason: RASH Ondansetron HCl (Ondansetron 4 Mg/2 Ml Vial) 4 mg IVP Q6HR PRN PRN Reason: Nausea / Vomiting Polyethylene Glycol (Polyethylene Glycol 3350 17 Gm Packet) 17 gm PO DAILY [facility] Last Admin: 05/31/22 10:14 Dose: 17 gm Senna (Senna 8.6 Mg Tablet) 8.6 - 34.4 mg PO PRN PRN; Protocol PRN Reason: STEP 1 OF BOWEL PROTOCOL Sodium Chloride (Sodium Chloride Flush 0.9% 10 Ml Syringe) 10 ml IVP PRN PRN PRN Reason: NEEDED PER PROVIDER ORDERS Last Admin: 05/22/22 18:30 Dose: 10 ml Sodium Chloride (Sodium Chloride Flush 0.9% 10 Ml Syringe) 10 ml IVP 0100,0900,1700 [facility] Last Admin: 05/31/22 10:13 Dose: 10 ml Tamsulosin HCl (Tamsulosin 0.4 Mg Capsule) 0.4 mg PO DAILY [facility] Last Admin: 05/31/22 10:11 Dose: 0.4 mg Warfarin Sodium (Warfarin 1 Mg Tablet) 1 mg PO MO [facility] Last Admin: 05/28/22 15:21 Dose: 1 mg Warfarin Sodium (Warfarin 2.5 Mg Tablet) 2.5 mg PO QDWARFARIN [facility] Last Admin: 05/31/22 13:12 Dose: Not Given Magnesium Oxide [Mag Ox] 400 mg PO BID 03/22/14 Multivitamin [Multi-Day Vitamins] 1 cap DAILY 03/22/14 Tamsulosin HCl [Flomax] 0.4 mg PO DAILY 10/13/14 Amiodarone [Pacerone] 100 mg PO DAILY 09/16/17 Polyethylene Glycol 3350 8.5 - 17 gm PO DAILY 09/16/17 Simvastatin 10 mg PO QPM 09/16/17 Spironolactone 12.5 mg PO DAILY 09/16/17 carvediloL [Carvedilol] 6.25 mg PO BIDWM 09/16/17 Gabapentin [Neurontin] 400 mg PO TID 05/22/22 Warfarin [Coumadin] 1 mg PO MO 05/22/22 Warfarin [Coumadin] 2 mg PO DAILY 05/22/22 Clobetasol Propionate/Emoll [Clobetasol Emollnt 0.05% Foam] 1 applic TP DAILY PRN 05/23/22 Furosemide [Lasix] 80 mg PO DAILY 05/23/22 Nitroglycerin [Nitrostat] 0.4 mg SL [id number] PRN 05/23/22 Nystatin [Nystop] 1 applic TOP BID PRN 05/23/22 Exam: Temperature is 36.3. Heart rate 63. Blood pressure 125/65. Respirations 16. He is 94% saturated on 1 L. He goes on to 85% on room air. 5 foot 11 inches tall, 126 kg Loud, impatient voice when he feels we are ignoring him. He also does not hear very well. Rhinorrhea, mild coryza, nasal tone of voice, anterior shotty neck adenopathy Lungs with coarse upper airway sounds but no wheezing. No tachypnea. Irregular rate and rhythm and he is in the 60s Abdomen soft, nontender. Having a bowel movement today Extremities without edema Deaf, cantankerous elderly gentleman who needs prompting but is cooperative. No focal deficits. Unsteady on his feet and needs a two-person max assist to keep him standing before he demands to sit down again. We are using the Aundrea lift for safety. I have not ordered labs since May 29 with regards to CBC CMP. Yesterday INR was 5. Today INR is 4.7. Coumadin has been held for 2 days. Assessment/Plan - Problem List (1) Chronic respiratory failure with hypoxia Impression: Because it is COVID-pneumonia and systolic heart failure, and COPD. We came down on his oxygen significantly in May 29. He was on 11 and as high as 13 L. He came down to to 3 L and is stayed that way since the . Today he is down to 1-2 liters by the afternoon. He is significantly deconditioned and weakened. Physical therapy is recommending jail facility and he agrees to that. His daughter was at the bedside when social work supervisor was speaking to him and she really strongly encouraged him because he was sitting on the fence about going. We have now transitioned into the chronic respiratory failure stage from acute. I will continue his Decadron until 10 days of completed. He is on his congestive heart failure medications. Currently not requiring bronchodilators. Hopefully we can get authorization from the snf today for him to be discharged and to start physical therapy at a snf soon (2) Pneumonia due to COVID-19 virus Conclusion/Plan: Isolation suppl O2 Remdesivir daily started 05/22, a 5 day course was planned, has been completed He got Decadron 10 mg on Day #1, now is on 6 mg iv daily. a maximum 10-day course is planned.He is on day 03/19 so stops today. (3) Pre-renal azotemia Conclusion/Plan: BUN/creat ratio had been rising to the 50s from 30 so his home dose of Lasix was stopped. Spironolactone was stopped. But his po intake was poor, and he was likely not adequately hydrating. Diet was changed from low-sodium to regular. Also now has a protein snack. And oral intake was more liberal. With 1 L of normal saline, BUN stayed relatively stable at 43. Creatinine came downt o 1.0 from 1.3 Avoid nephrotoxins Check BMP in am. (4) History of COPD Conclusion/Plan: Plan: Will continue his home meds But his home meds do not have COPD medications listed on them. We are completing Decadron as in #2 today I thought he was on a bronchodilator here. He is not. He is not wheezing. Just diminished breath sounds. I added albuterol metered-dose inhaler, As needed on 05/30. (5) Chronic a-fib Conclusion/Plan: He was 100% ventricular paced on his admission EKG, indicating his meds are preventing RVR. We are continuing to monitor. Adjusting his Coumadin because he became supratherapeutic. Assessment/Plan I have continued his home meds of amiodarone and carvedilol He has gone up and down on his INR. The last 2 days we have been holding his Coumadin dosing. (6) Chronic systolic heart failure Conclusion/Plan: His last Echo done here 4 years ago, LVEF was 45%. Weights are erratic on the first day of admission. He was 73 kg and then he was 126 kg. So we will go with 126.5 kg on admission. Today he is still 126 kg Plan: we needed to stop Lasix and Spironolactone temporarily due to pre-renal azotemia. If his weight goes up by a kilogram, I will resume 1 of those medications. Follow BMP daily Daily weight He is not in obvious heart failure during this admission; no Echo was ordered. (7) CHERRY on CPAP Conclusion/Plan: He told his RN he has nasal polyps and is a mouth breather as well as having sleep apnea and uses his CPAP device. He has been faithfully using it while here when he goes to sleep. Or takes an nap Plan: Home CPAP with 3 L bleed while asleep is being used while here (8) Poor memory Conclusion/Plan: He called out for help when first admitted, when we entered the room, he did not remember what he needed. He is a poor historian and cannot give any details about himself. His baseline mental status is not known from our records. I suspect there is dementia, since he has a hired caregiver and a hired RN who take care of him in his house, most or all days of the week. Plan: Continue with supportive care and reorienting In speaking with daughter today, they are in agreement that he should go to a snf because of his weakness. As such we are making those arrangements.
[2022-05-31] MEDS: ATORVASTATIN 10 MG TABLET PO SCH (20:37)
[2022-06-01] MEDS: SODIUM CHLORIDE FLUSH 0.9% 10 ML SYRINGE IVP SCH ×3 (01:20→21:16)
[2022-06-01 05:29] LABS: CALCIUM 7.7 mg/dL (8.5-10.3)
[2022-06-01 05:34] LABS: PT - PROTHROMBIN TIME 48.6 secs (9.9-12.6)
[2022-06-01 05:50] LABS: INR 4.8 (0.8-1.2)
[2022-06-01] MEDS: ALBUTEROL NEB 2.5 MG/3 ML INH PRN (06:13)
[2022-06-01] MEDS: GABAPENTIN 400 MG CAPSULE PO SCH ×3 (06:33→21:21)
[2022-06-01] MEDS: CHOLECALCIFEROL 25 MCG TABLET PO SCH (08:32)
[2022-06-01] MEDS: AMIODARONE 200 MG TABLET PO SCH (08:32)
[2022-06-01] MEDS: carvediloL 12.5 MG TABLET PO SCH ×2 (08:37→21:21)
[2022-06-01] MEDS: MAGNESIUM OXIDE 400 MG TABLET PO SCH (08:38)
[2022-06-01] MEDS: TAMSULOSIN 0.4 MG CAPSULE PO SCH (08:39)
[2022-06-01] MEDS: MULTIVITAMIN TABLET PO SCH (08:39)
[2022-06-01] MEDS: polyethylene glycoL 3350 17 GM PACKET PO SCH (08:39)
[2022-06-01] MEDS: WARFARIN 2.5 MG TABLET PO SCH (11:18)
--- NOTE | 2022-06-01 12:06 | PROVIDER PROGRESS NOTE ---
Progress Note June 01, 2022 12:15 PM He is on 1 L at times. Sometimes he is 92% on room air. Occasional phlegmy cough. But no chest pain, no palpitations, no shortness of breath. Continue to be significantly deconditioned. Active Medications Acetaminophen (Acetaminophen 325 Mg Tablet) 650 mg PO Q6HR PRN PRN Reason: Pain or Fever > 38C (100.4F) Last Admin: 05/31/22 13:15 Dose: 650 mg Albuterol (Albuterol Neb 2.5 Mg/3 Ml) 2.5 mg INH RTQ4H PRN PRN Reason: Wheezing Last Admin: 06/01/22 06:13 Dose: 2.5 mg Amiodarone HCl (Amiodarone 200 Mg Tablet) 100 mg PO DAILY [facility] Last Admin: 06/01/22 08:32 Dose: 100 mg Atorvastatin Calcium (Atorvastatin 10 Mg Tablet) 10 mg PO QPM [facility] Last Admin: 05/31/22 20:37 Dose: 10 mg Carvedilol (Carvedilol 12.5 Mg Tablet) 6.25 mg PO BID [facility] Last Admin: 06/01/22 08:37 Dose: 6.25 mg Cholecalciferol (Cholecalciferol 25 Mcg Tablet) 50 mcg PO DAILY [facility] Last Admin: 06/01/22 08:32 Dose: 50 mcg Docusate Sodium (Docusate Sodium 250 Mg Capsule) 250 - 500 mg PO DAILY PRN PRN Reason: STEP 1 OF BOWEL PROTOCOL Gabapentin (Gabapentin 400 Mg Capsule) 400 mg PO TID [facility] Last Admin: 06/01/22 06:33 Dose: 400 mg Lidocaine (Lidocaine Patch 5%) 1 patch TOP DAILY PRN PRN Reason: PAIN Magnesium Oxide (Magnesium Oxide 400 Mg Tablet) 400 mg PO DAILY [facility] Last Admin: 06/01/22 08:38 Dose: 400 mg Multi-Ingredient Ointment (Zinc Oxide 20% Oint 30 Gm Tube) 1 applic TOP PRN PRN PRN Reason: Skin Care Last Admin: 05/29/22 21:17 Dose: 1 applic Multivitamins (Multivitamin Tablet) 1 tab PO DAILYWM [facility] Last Admin: 06/01/22 08:39 Dose: 1 tab Nystatin (Nystatin Powder 15 Gm) 1 applic TOP BID PRN PRN Reason: RASH Ondansetron HCl (Ondansetron 4 Mg/2 Ml Vial) 4 mg IVP Q6HR PRN PRN Reason: Nausea / Vomiting Polyethylene Glycol (Polyethylene Glycol 3350 17 Gm Packet) 17 gm PO DAILY [facility] Last Admin: 06/01/22 08:39 Dose: Not Given Senna (Senna 8.6 Mg Tablet) 8.6 - 34.4 mg PO PRN PRN; Protocol PRN Reason: STEP 1 OF BOWEL PROTOCOL Sodium Chloride (Sodium Chloride Flush 0.9% 10 Ml Syringe) 10 ml IVP PRN PRN PRN Reason: NEEDED PER PROVIDER ORDERS Last Admin: 05/22/22 18:30 Dose: 10 ml Sodium Chloride (Sodium Chloride Flush 0.9% 10 Ml Syringe) 10 ml IVP 0100,0900,1700 [facility] Last Admin: 06/01/22 08:44 Dose: 10 ml Tamsulosin HCl (Tamsulosin 0.4 Mg Capsule) 0.4 mg PO DAILY [facility] Last Admin: 06/01/22 08:39 Dose: 0.4 mg Warfarin Sodium (Warfarin 1 Mg Tablet) 1 mg PO MO [facility] Last Admin: 05/28/22 15:21 Dose: 1 mg Warfarin Sodium (Warfarin 2.5 Mg Tablet) 2.5 mg PO QDWARFARIN [facility] Last Admin: 06/01/22 11:18 Dose: Not Given Magnesium Oxide [Mag Ox] 400 mg PO BID 03/22/14 Multivitamin [Multi-Day Vitamins] 1 cap DAILY 03/22/14 Tamsulosin HCl [Flomax] 0.4 mg PO DAILY 03/22/14 Amiodarone [Pacerone] 100 mg PO DAILY 09/16/17 Polyethylene Glycol 3350 8.5 - 17 gm PO DAILY 09/16/17 Simvastatin 10 mg PO QPM 09/16/17 Spironolactone 12.5 mg PO DAILY 09/16/17 carvediloL [Carvedilol] 6.25 mg PO BIDWM 09/16/17 Gabapentin [Neurontin] 400 mg PO TID 05/22/22 Warfarin [Coumadin] 1 mg PO MO 05/22/22 Warfarin [Coumadin] 2 mg PO DAILY 05/22/22 Clobetasol Propionate/Emoll [Clobetasol Emollnt 0.05% Foam] 1 applic TP DAILY PRN 05/23/22 Furosemide [Lasix] 80 mg PO DAILY 05/23/22 Nitroglycerin [Nitrostat] 0.4 mg SL [id number] PRN 05/23/22 Nystatin [Nystop] 1 applic TOP BID PRN 05/23/22 Temperature is 36.4. Heart rate 52. Blood pressure 113/66. Respirations 20. 92% on room air. 5 foot 11 inch male, weight has been stable. He really varies very little. Stays about 126 kg or 126.5 kg. He has not needed me to resume his diuretic. Shotty neck adenopathy Coarse upper airway sounds, occasional phlegmy cough where he needs to bring up his phlegm irregular rate and rhythm Abdomen is soft, nontender. Normal bowel sounds. Last bowel movement was May 31. He is incontinent of urine and has a brief and a pad. He is very hard of hearing, forgetful, but able to be prompted. Is a lucid conversationalist. He does make his needs known. We need to use a Aundrea lift, or trapeze to get him out of bed. INR is 4.8 White cell count was last checked May 29 Sodium 137, potassium 5, BUN 39, creatinine 1, random glucose 106 Assessment/Plan - Problem List (1) Chronic respiratory failure with hypoxia Impression: Because it is COVID-pneumonia and systolic heart failure, and COPD. We came down on his oxygen significantly in May 29. He was on 11 and as high as 13 L. He came down to to 3 L and is stayed that way since the . He has been down to 1-2 liters since 05/30 afternoon. He is significantly deconditioned and weakened. Physical therapy is recommending [facility] facility and he agrees to that. His daughter was at the bedside when social work case manager was speaking to him and she really strongly encouraged him because he was sitting on the fence about going. We have now transitioned into the chronic respiratory failure stage from acute. I will continue his Decadron until 10 days of completed. He is on his congestive heart failure medications. Currently not requiring bronchodilators. We did get authorization that he could go to a long-term today. We verified that he will need nasal cannula for oxygen. He does have a home CPAP mask and will continue that. Because of his weakness he will need BLS. That ended up being the reason he cannot go today. Apparently there were no ambulance is available today. The patient is still anxious. Not happy about all of this. He is afraid that he is in a get to a long-term and never go home again. But he also realizes that if he goes home he has caregivers, 2 of them, that will not be prepared to be able to take care of his needs. We will try to reassure him that we have every expectation he is going to get strong enough to return to the same life he had before. He just needs to be able to be independent enough to transition from supine to sitting, sitting to standing with a few steps. This will help his caregivers tremendously take care of him at home. Were not asking him to return to a completely independent life. (2) Pneumonia due to COVID-19 virus Conclusion/Plan: Isolation suppl O2 Remdesivir daily started 05/22, a 5 day course was planned, has been completed He got Decadron 10 mg on Day #1, And completed a 10-day course on May 31 (3) Pre-renal azotemia Conclusion/Plan: BUN/creat ratio had been rising to the 50s from 30 so his home dose of Lasix was stopped. Spironolactone was stopped. But his po intake was poor, and he was likely not adequately hydrating. Diet was changed from low-sodium to regular. Also now has a protein snack. And oral intake was more liberal. With 1 L of normal saline, BUN stayed relatively stable at 43. Creatinine came downt to 1.0 from 1.3 And has stayed there for the last few days. Avoid nephrotoxins I would like to stop checking daily BMPs. (4) History of COPD Conclusion/Plan: Plan: Will continue his home meds But his home meds do not have COPD medications listed on them. We have completed Decadron as in problem #2 description on May 31. I thought he was on a bronchodilator here. He is not. He is not wheezing. Just diminished breath sounds. I added albuterol metered-dose inhaler, As needed on 05/30. (5) Chronic a-fib Conclusion/Plan: He was 100% ventricular paced on his admission EKG, indicating his meds are preventing RVR. We are continuing to monitor. Adjusting his Coumadin because he became supratherapeutic. He has not had Coumadin for several days now. It is really unclear why. I discussed his medications with pharmacy. He is not on any antibiotics recently. INR is 4.8 today. Coumadin will continue to be held. This should be noted because when he goes to the custodial, Coumadin cannot be resumed and his INR needs to be checked assiduously Assessment/Plan I have continued his home meds of amiodarone and carvedilol He has gone up and down on his INR. The last 3 days we have been holding his Coumadin dosing. (6) Chronic systolic heart failure Conclusion/Plan: His last Echo done here 4 years ago, LVEF was 45%. Weights are erratic on the first day of admission. He was 73 kg and then he was 126 kg. So we will go with 126.5 kg on admission. Today he is still 126.5 kg Plan: we needed to stop Lasix and Spironolactone temporarily due to pre-renal azotemia. If his weight goes up by a kilogram, I will resume 1 of those medications. Follow BMP daily Daily weight He is not in obvious heart failure during this admission; no Echo was ordered. (7) CHERRY on CPAP Conclusion/Plan: He told his RN he has nasal polyps and is a mouth breather as well as having sleep apnea and uses his CPAP device. He has been faithfully using it while here when he goes to sleep. Or takes an nap Plan: Home CPAP with 3 L bleed while asleep is being used while here (8) Poor memory Conclusion/Plan: He called out for help when first admitted, when we entered the room, he did not remember what he needed. He is a poor historian and cannot give any details about himself. His baseline mental status is not known from our records. I suspect there is dementia, since he has a hired caregiver and a hired RN who take care of him in his house, most or all days of the week. Plan: Continue with supportive care and reorienting In speaking with daughter, they are in agreement that he should go to a long-term because of his weakness. We have made those arrangements. He has been ready to go for a couple of days and we have been waiting for nursing homes to accept him. Today finally someone excepted him. Now that long-term cannot take him because we have no ambulance to transport the patient there. This patient does require a Aundrea lift, so he needs to go BLS. The patient himself is due the ring. He is just really scared about going to a long-term because he feels he is going to be ending up there forever. Our social work case manager is trying to be as reassuring as possible that that is not our plan. This is a short term rehab stay and he should return to his own home with his caregivers after this. It all depends on him and his motivation to get stronger. I do find her to be quite cantankerous at time. He starts yelling. This morning I had to please tell him to lower his voice. He was frustrated, could not figure out how to use the phone. I figured out for him and that he was really happy after that. But I told him he cannot be speaking to people that way.
[2022-06-01] MEDS: ACETAMINOPHEN 325 MG TABLET PO PRN (21:20)
[2022-06-01] MEDS: ATORVASTATIN 10 MG TABLET PO SCH (21:21)
[2022-06-02] MEDS: SODIUM CHLORIDE FLUSH 0.9% 10 ML SYRINGE IVP SCH ×2 (00:45→08:34)
[2022-06-02 05:52] LABS: CALCIUM 7.9 mg/dL (8.5-10.3); POTASSIUM 4.6 mmol/L (3.5-5.0)
[2022-06-02] MEDS: GABAPENTIN 400 MG CAPSULE PO SCH (06:04)
[2022-06-02 06:08] LABS: INR 4.1 (0.8-1.2); PT - PROTHROMBIN TIME 41.9 secs (9.9-12.6)
[2022-06-02] MEDS ORDERED: FUROSEMIDE 20 MG/2 ML VIAL IVP STA (07:39)
[2022-06-02] MEDS ORDERED: NITROGLYCERIN SL 0.4 MG TABLET SL PRN (07:45)
[2022-06-02] MEDS ORDERED: MORPHINE 2 MG/ML CARPUJECT IVP STA (07:45)
[2022-06-02] MEDS: ALBUTEROL NEB 2.5 MG/3 ML INH PRN (07:49)
[2022-06-02] MEDS: polyethylene glycoL 3350 17 GM PACKET PO SCH (08:32)
[2022-06-02] MEDS: CHOLECALCIFEROL 25 MCG TABLET PO SCH (08:32)
[2022-06-02] MEDS: MULTIVITAMIN TABLET PO SCH (08:32)
[2022-06-02] MEDS: MAGNESIUM OXIDE 400 MG TABLET PO SCH (08:32)
[2022-06-02] MEDS: TAMSULOSIN 0.4 MG CAPSULE PO SCH (08:32)
[2022-06-02] MEDS: carvediloL 12.5 MG TABLET PO SCH (08:34)
[2022-06-02] MEDS: AMIODARONE 200 MG TABLET PO SCH (08:34)
--- NOTE | 2022-06-02 09:53 | XRAY Report ---
PROCEDURE: Chest 1 View X-Ray INDICATIONS: Short of breath, tachypnea TECHNIQUE: One view of the chest was acquired. COMPARISON: 05/22/2022 FINDINGS: Surgical changes and devices: There is a stable right-sided single lead AICD Lungs and pleura: Mild generalized interstitial prominence is seen, which is improved compared to th e prior radiograph. On this semiupright study, no large pneumothorax or large pleural effusion can be seen. Mediastinum: The aorta is prominent and tortuous. The cardiac contours are moderately enlarged. Bones and chest wall: No suspicious bony lesions. Age-appropriate degenerative changes are seen. Overlying soft tissues appear unremarkable. IMPRESSION: Moderate primarily with mild interstitial prominence. CHF is suspected. The degree of interstitial prominence is improved compared to the prior chest radiograph. Postoperative and degenerative changes are seen. Reviewed by: Cody Portillo MD on 06/02/2022 8:52 AM [facility] Approved by: Cody Portillo MD on 06/02/2022 8:52 AM [facility] Station ID: [id number]
--- NOTE | 2022-06-02 10:34 | Discharge Plan ---
Discharge Plan for SNF / PAULINE - Discharge Plan And Transition Orders Problem Reviewed?: Yes Disposition: SNF DC/Xfer Condition: Stable Allergies and Adverse Reactions: Allergies Allergy/AdvReac Type Severity Reaction Status Date / Time No Known Drug Allergies Allergy Verified 08/28/17 12:25 Health Concerns: This patient lives alone but has a caregiver and a nurse who come to his house. He developed a cough and shortness of breath, came to the ER and was desaturating and found to have a COVID-pneumonia. He needed supplemental oxygen set at 10-15 L/min, and this has now been weaned down to room air, but he occasionally needs 1L/min of O2 with activity. He completed Remdesivir and Decadron treatments. He also has (probably mild) COPD and is on puffers. He also has chronic A. fib and is on Coumadin, gets daily INRs. He also has chronic systolic heart failure and needed intermittent increase in his diuretics, also needs meds staggered due to "soft" BP. He is very deconditioned from an 11-day hospital course and needs rehab. Plan of Treatment: As above. Care Goals: Improvement in symptoms, improvement in his ambulation ability, and stab ilization of his symptoms are the goals. Assessment: The patient is agreeable with the plan. - SNF / [facility]INE Transition Orders Admit to (Facility): [facility] Under the care of (Name): Staff provider at [facility] Discharge Diagnosis: (1) Acute respiratory failure with hypoxia Stabilized (2) Pneumonia due to COVID-19 virus Resolved (3) Pre-renal azotemia Resolved (4) History of COPD Stable but needs O2 with activity. Keep oxygen saturation greater than 88%. (5) Chronic a-fib Stable HR. INR is excessive lately, therefore getting INR checked daily. (6) Chronic systolic heart failure Stable on meds. Pt not on DE-I, because it causes "soft" BP. (7) CEHRRY on CPAP Stable on his Home CPAP (8) Poor memory Stable when oxygenating well. Medicare Certification Statement: I certify that Post Hospital shelter care is medically necessary on a continuing basis for any of the conditions for which she/he is receiving care during hospitalization. Notify PCP of admission and forward orders to primary provider for signature. Weight on admission and: Daily Call PCP immediately if weight increases by: 4 kg Other Notification Orders: Call PCP immediately if patient develops dyspnea, chest pain/tightness or edema. House Bowel Program: Yes Additional Bowel Program Orders: If no BM after 2 days, nurse may give M.O.M. 30ml PO PRN and/or ducolax Supp 1 LA and/or NENITA 250mg P.O., and/or senna 1-2 tabs PO. On day 3 nurse may give repeat above order until residents constipation is resolved. Annual Influenza Vaccine (between Feb 08 and September 07): Yes Two-step PPD per [facility] [id number] or approved exception documents: Yes Treatments & Other Orders: Daily PT and OT Oxygen Orders: Use his Home CPAP machine every night and for naps. O2 at 1L/min during activity. Keep oxygen saturation 88% or greater. Lab Tests or X-ray Orders: Daily INR. Target INR is 2.0-3.0 and DO NOT GIVE Coumadin if INR is greater than 3 Medication Orders: PLEASE REFER TO THE DISCHARGE MEDICATION LIST. Insulin Orders?: No - Medications New Prescriptions: Albuterol 2.5 mg INH RTQ4H PRN #1 ea PRN Reason: Wheezing Spironolactone [Aldactone] 12.5 mg PO DAILY #15 tablet carvediloL [Coreg] 6.25 mg PO BID #30 tab Warfarin [Coumadin] 2 mg PO DAILY #60 tab Tamsulosin [Flomax] 0.4 mg PO QPM #30 cap Furosemide [Lasix] 40 mg PO DAILY #30 tab Atorvastatin [Lipitor] 10 mg PO QPM #30 tab Magnesium Oxide [Mag Ox] 400 mg PO DAILY #30 tab Gabapentin [Neurontin] 400 mg PO TID #90 cap Nitroglycerin [Nitrostat] 0.4 mg SL [id number] PRN #100 tab PRN Reason: Chest Pain Amiodarone [Pacerone] 100 mg PO DAILY #15 tab Cholecalciferol [Vitamin D3] 50 mcg PO DAILY #30 tab - Diet Type: No added salt Texture: Regular Liquids: Thin May have monthly special meal: Yes - Therapies | Activity Therapy: Evaluation | Treat if indicated: PT, OT Rehabilitation Potential: Maximize functional status Activity: Activity as Tolerated Weight Bearing: Full Weight Assistance Devices: Walker Follow Up: See PCP Dr Nemesio Jovel after DCh from [facility].
--- NOTE | 2022-06-02 11:16 | DISCHARGE SUMMARY ---
Discharge Summary Admit Date: 05/22/22 Discharge Date: 06/02/22 Discharging Provider: Dr Meliza Holly Primary Care Provider: Dr Nemesio Jovel Condition at Discharge: Stable Discharge Disposition: SNF DC/Xfer Discharge Facility Name: [facility] History of Present Illness: This is an 86-year-old white male who lives alone, but has a daily caregiver and RN come into his home. He has a history of A. fib and takes Coumadin, history of CHF who is felt more short of breath for the last 2 days as well as overall ill with a annoying cough for 2 days. Because of worsening shortness of breath he called an ambulance today and brought to the emergency room. He received a nebulizer along the way. In the ER his oxygen saturation was documented at 79% on room air. He received a nebulizer again and started on supplemental oxygen. He is needing up to 10 L/min on Oxymizer for supplemental oxygen. Labs showed he is COVID-positive. Chest x-ray reveals parenchymal opacities versus CHF. His INR is 4. He did receive IV Decadron (only 6 mg so far) in the ED. He continues to be hypoxic and the ED provider has reached out to the hospitalist team and we discussed need for admitting him for acute respiratory failure from a COVID-pneumonia. The patient seems too confused to give me details about his recent history and also too confused to make a decision about CODE STATUS. There is no POLST scanned into this EMR, therefore by default, he will be a Full Code. - HOSPITAL COURSE Hospital Course: (1) Acute respiratory failure with hypoxia He needed up to 15L suppl O2 given bu [facility] for many days, then was eventually weaned down to room air at rest. He still desaturated when ambulating and working with PT and OT, which was documented, therefore he needed 1L O2 with activity. He was also on his home CPAP unit, with O2 bled in, now is on CPAP without suppl O2, when asleep. (2) Pneumonia due to COVID-19 virus He received remdesivir for 5 days, Decadron IV for 10 days and Mucinex for pulmonary toliet. He had very slow improvement in his respiratory status. He became very deconditioned. He was discharged for PT and OT rehab to a SNF. (3) Pre-renal azotemia He was on Lasix which caused his elevated BUN/creatinine ratio. Also spironolactone was added when we learned he had a low EF. The Lasix and Spironolactone had to be stopped for low blood pressure and prerenal azotemia and his renal indices improved. (4) History of COPD He was on dose inhalers and the steroids while here. His COPD is now stable but he currently needs O2 with activity. Keep oxygen saturation greater than 88%. (5) Chronic a-fib He had a stable HR. He was on Coumadin and INR was excessive lately, therefore getting INR checked daily as he was discharged to a SNF. (6) Chronic systolic heart failure His last Echo, done several years ago showed an LVEF of 45%. There was not another Echo repeated this admission. His CHF was felt to be stable on his cardiac meds. Pt not on DE-I, because it causes "soft" BP. We did resume Lasix as he was being discharged, but at a lower dose (40 mg daily), than the previous home med dose of 80 mg daily. (7) CHERRY on CPAP Stable on his Home CPAP, which was used religiously while here. (8) Poor memory Stable when oxygenating well. - ALLERGIES Allergies/Adverse Reactions: Allergies Allergy/AdvReac Type Severity Reaction Status Date / Time No Known Drug Allergies Allergy Verified 08/28/17 12:25 - MEDICATIONS Home Medications: Ambulatory Orders Medication Instructions Recorded Confirmed Acetaminophen [Tylenol] 650 mg PO Q6HR PRN tab 06/02/22 Albuterol 2.5 mg INH RTQ4H PRN #1 ea 06/02/22 Amiodarone [Pacerone] 100 mg PO DAILY #15 tab 06/02/22 Atorvastatin [Lipitor] 10 mg PO QPM #30 tab 06/02/22 Cholecalciferol [Vitamin D3] 50 mcg PO DAILY #30 tab 06/02/22 Furosemide [Lasix] 40 mg PO DAILY #30 tab 06/02/22 Gabapentin [Neurontin] 400 mg PO TID #90 cap 06/02/22 Magnesium Oxide [Mag Ox] 400 mg PO DAILY #30 tab 06/02/22 Multivitamin [Theragran] 1 tab PO DAILYWM tab 06/02/22 Nitroglycerin [Nitrostat] 0.4 mg SL [id number] PRN #100 tab 06/02/22 Spironolactone [Aldactone] 12.5 mg PO DAILY #15 tablet 06/02/22 Tamsulosin [Flomax] 0.4 mg PO QPM #30 cap 06/02/22 Warfarin [Coumadin] 2 mg PO DAILY #60 tab 06/02/22 carvediloL [Coreg] 6.25 mg PO BID #30 tab 06/02/22 - PHYSICAL EXAM AT DISCHARGE General Appearance: positive: No acute distress, Alert Eyes Bilateral: positive: Normal inspection, EOMI ENT: positive: ENT inspection nml, No signs of dehydration Neck: positive: Other (Cannot eval due to long bushy sahu) Respiratory: positive: No respiratory distress, Breath sounds nml Cardiovascular: positive: No murmur, Irregularly irregular Abdomen: positive: Non-tender, Nml bowel sounds, No distention Skin: positive: Warm, Dry Extremities: positive: Non-tender, No pedal edema Neurologic/Psychiatric: positive: Oriented x3, Motor nml, Other (Poor memory) - LABS Result Diagrams: 05/29/22 05:28 06/02/22 04:57 - FOLLOW UP Follow Up: See PCP after DCh from the SNF. - TIME SPENT Time Spent in Discharge (Minutes): 50
[2022-06-02 11:34] VITALS: BP 115/56
== END 2022-06-02 12:30 | DRG 189 ==
LOC: EDUNIT# → ED 09:29 → MS2 15:24
PROVIDERS: ADMIT Internal Medicine; ATTEND Internal Medicine
DX: J96.01 Acute respiratory failure with hypoxia (principal); J96.21 Acute and chronic respiratory failure with hypoxia; U07.1 COVID-19; I48.91 Unspecified atrial fibrillation; J12.82 Pneumonia due to coronavirus disease 2019; J44.0 Chronic obstructive pulmonary disease with (acute) lower respiratory infection; I25.10 Atherosclerotic heart disease of native coronary artery without angina pectoris; J44.9 Chronic obstructive pulmonary disease, unspecified; G47.30 Sleep apnea, unspecified; I48.20 Chronic atrial fibrillation, unspecified; I50.22 Chronic systolic (congestive) heart failure; R79.89 Other specified abnormal findings of blood chemistry; Z79.82 Long term (current) use of aspirin; G47.33 Obstructive sleep apnea (adult) (pediatric); Z87.891 Personal history of nicotine dependence; R41.3 Other amnesia; I11.0 Hypertensive heart disease with heart failure; E78.00 Pure hypercholesterolemia, unspecified; M10.9 Gout, unspecified; Z79.01 Long term (current) use of anticoagulants; Z79.899 Other long term (current) drug therapy; Z95.0 Presence of cardiac pacemaker
CPT/HCPCS: 36415; 71045; 73030; 80048; 80053; 82306; 83605; 83690; 83735; 83880; 85025; 85610; 87040; 87633; 87635; 93005; 94640; 96374; 97162; 97166; 97530; 99283; 99285; A9270

== ENCOUNTER → 2022-05-22 | Outpatient (CLI) | payer MEDICARE, OTHER | END | disposition critical access hospital (66) | LOC: EMS 09:08 | DX: R06.02 Shortness of breath (principal); R53.83 Other fatigue; R05.9 Cough, unspecified | CPT/HCPCS: A0425; A0427 ==